=== PATIENT | male | born 1990 | race African-American/Black ===

== ENCOUNTER 2021-06-04 22:30 | Inpatient (IN) ==
[2021-06-04] MEDS ORDERED: ALBUT/IPRATROP 3MG/0.5MG NEB 3 ML VIAL INH STA (22:46)
[2021-06-04] MEDS ORDERED: methylPREDNISolone 125 MG/2 ML VIAL IV STA (22:46)
[2021-06-04] MEDS: MAGNESIUM SULFATE / D5W 1 GM/100 ML BAG IV SCH ×2 (22:51→23:52)
--- NOTE | 2021-06-04 22:59 | Emergency Department Note ---
History of Present Illness General Chief Complaint: Shortness of Breath/Dyspnea Stated Complaint: HAVING TROUBLE BREATHING Time Seen by Provider: 06/04/21 22:39 Source: patient Mode of arrival: ambulatory Limitations: no limitations and clinical acuity (Significantly short of breath) History of Present Illness Provider Complaint: shortness of breath Onset (ago): hour(s) Severity: severe Consistency/Duration: + constant and + progressively worsening Relieved By: + nothing Exacerbated By: + allergies and + other (Smoking) Context: + allergen exposure and + smoke/fume exposure; no recent illness, no occurred during exertion, no choking/aspiration, no medication noncompliance, no recent travel or no trauma/injury Known history of: asthma Associated symptoms: + cough (Productive but with clear sputum); no chest pain, no pain with inspiration, no fever, no diaphoresis or no abdominal pain Treatment prior to arrival: bronchodilator Related Data Home oxygen amount: none Home Medications Medication Instructions Recorded Confirmed Type albuterol sulfate 90 mcg/actuation 2 puff INHALATION Q6H PRN 01/16/20 06/04/21 History aerosol inhaler Allergies Allergy/AdvReac Type Severity Reaction Status Date / Time diphenhydramine AdvReac Difficulty Unverified 06/04/21 23:13 Breathing Past Med/Surg History Medical History Asthma Inguinal hernia Surgical History No pertinent past surgical history Social History Smoking Status: Current every day smoker Tobacco Type: Cigarettes Second Hand Exposure: No; Hx Alcohol Use: Yes Hx Substance Use: Yes Preferred Language: Maltese Manager Utilities Required: No Beliefs That Will Affect Care: None Current Living Situation: Family Other Information That Helps Us Care for You: Yes (Vegan Diet) Feels Safe at Home: Yes Safety Concerns: Feels Safe At This Time Assistive Devices: Oxygen - Continuous Assistive Devices Comment: Upper veneer Physical Exam Vital Signs: Vital Signs - 24 hr 06/04/21 22:37 06/04/21 22:45 06/04/21 22:46 Temperature 36.8 C Temperature Source Temporal Artery Sc an Pulse Rate 94 H 80 Pulse Rate [Apical ] Pulse Rate [Exerci ses] Pulse Rate [Restin g] Pulse Rate from Sp O2 Sensor 81 Pulse Rhythm Regular Respiratory Rate 28 H 12 Respiratory Rate [ Exercises] Respiratory Effort / Characteristics Short of Breath Respiratory Depth Shallow Respiratory Patter n Tachypnea Blood Pressure 148/94 H Blood Pressure Yamini n 112 Pulse Oximetry 88 L 97 Pulse Oximetry [Ex ercises] Pulse Oximetry [Re covery] Pulse Oximetry [Re sting] Oxygen Delivery Me thod Room Air Nasal Cannula Oxygen Flow Rate 2 Sepsis Recent Feve r Within 48 Hours No Sepsis New/Unexpla ined Change in Men carlos Status No Sepsis Action Take n by Nursing No Action Required 06/04/21 22:53 06/04/21 23:00 06/04/21 23:30 Temperature Temperature Source Pulse Rate 70 63 Pulse Rate [Apical ] 66 Pulse Rate [Exerci ses] Pulse Rate [Restin g] Pulse Rate from Sp O2 Sensor 66 64 Pulse Rhythm Respiratory Rate 16 13 19 Respiratory Rate [ Exercises] Respiratory Effort / Characteristics Non-Labored Sponta neous Respiratory Depth Respiratory Patter n Blood Pressure 148/88 H 151/80 H Blood Pressure Yamini n 108 103 Pulse Oximetry 98 99 100 Pulse Oximetry [Ex ercises] Pulse Oximetry [Re covery] Pulse Oximetry [Re sting] Oxygen Delivery Me thod Nasal Cannula Oxygen Flow Rate 4 Sepsis Recent Feve r Within 48 Hours Sepsis New/Unexpla ined Change in Men carlos Status Sepsis Action Take n by Nursing 06/05/21 00:00 06/05/21 00:23 06/05/21 00:30 Temperature Temperature Source Pulse Rate Pulse Rate [Apical ] Pulse Rate [Exerci ses] 118 H Pulse Rate [Restin g] 116 H Pulse Rate from Sp O2 Sensor 71 Pulse Rhythm Respiratory Rate Respiratory Rate [ Exercises] 25 H Respiratory Effort / Characteristics Respiratory Depth Respiratory Patter n Blood Pressure 155/94 H 122/80 Blood Pressure Yamini n 114 94 Pulse Oximetry 95 Pulse Oximetry [Ex ercises] 88 L Pulse Oximetry [Re covery] 89 L Pulse Oximetry [Re sting] 90 Oxygen Delivery Me thod Room Air Oxygen Flow Rate Sepsis Recent Feve r Within 48 Hours Sepsis New/Unexpla ined Change in Men carlos Status Sepsis Action Take n by Nursing 06/05/21 01:00 06/05/21 01:01 06/05/21 01:30 Temperature Temperature Source Pulse Rate 65 Pulse Rate [Apical ] 70 Pulse Rate [Exerci ses] Pulse Rate [Restin g] Pulse Rate from Sp O2 Sensor 70 65 Pulse Rhythm Respiratory Rate 16 16 Respiratory Rate [ Exercises] Respiratory Effort / Characteristics Non-Labored Sponta neous Respiratory Depth Respiratory Patter n Blood Pressure 140/90 134/80 Blood Pressure Yamini n 106 98 Pulse Oximetry 95 95 100 Pulse Oximetry [Ex ercises] Pulse Oximetry [Re covery] Pulse Oximetry [Re sting] Oxygen Delivery Me thod Nasal Cannula Oxygen Flow Rate 2 Sepsis Recent Feve r Within 48 Hours Sepsis New/Unexpla ined Change in Men carlos Status Sepsis Action Take n by Nursing 06/05/21 02:06 Temperature Temperature Source Pulse Rate Pulse Rate [Apical ] Pulse Rate [Exerci ses] Pulse Rate [Restin g] Pulse Rate from Sp O2 Sensor 80 Pulse Rhythm Respiratory Rate Respiratory Rate [ Exercises] Respiratory Effort / Characteristics Respiratory Depth Respiratory Patter n Blood Pressure Blood Pressure Yamini n Pulse Oximetry 91 Pulse Oximetry [Ex ercises] Pulse Oximetry [Re covery] Pulse Oximetry [Re sting] Oxygen Delivery Me thod Oxygen Flow Rate Sepsis Recent Feve r Within 48 Hours Sepsis New/Unexpla ined Change in Men carlos Status Sepsis Action Take n by Nursing Physical Exam: GENERAL: Significant distress, tachypnea noted. EYE EXAM: Normal conjunctiva. PERRL, no anisocoria and EOM's grossly intact w/o pain. NECK: Supple, no nuchal rigidity, no adenopathy, non-tender. No signs of meningismus. LUNGS: Diminished breath sounds throughout with inspiratory and expiratory wheezing, prolonged expiratory phase. HEART: NSR, no MRG. ABDOMEN: Abdomen soft, non-tender, normo-active bowel sounds, no masses, no rebound or guarding. BACK: No CVA TTP. SKIN: No rashes and no bruising. UPPER EXTREMITIES: Upper extremities are grossly normal. LOWER EXTREMITIES: Grossly normal, no edema. Negative Homans' sign bilaterally NEURO EXAM: A&O x3, cranial nerves II-XII grossly intact, normal speech, moves all 4 extremities on command w/o issue. Course Course Cardiac monitoring: An order was placed for continuous cardiac monitoring. The monitor shows a rate of 88 with sinus rhythm. Administered Medications Albuterol (Albuterol 0.5% Neb Soln 2.5 Mg/0.5 Ml Vial) 2.5 mg NEB Q4R ABDULLAHI Stop: 07/05/21 06:59 Last Admin: 06/05/21 15:42 Dose: 2.5 mg Documented by: [id number] Admin: 06/05/21 11:17 Dose: 2.5 mg Documented by: [id number] Admin: 06/05/21 07:17 Dose: 2.5 mg Documented by: [id number] Discontinued Medications Albuterol (Albut/Ipratrop 3mg/0.5mg Neb 3 Ml Vial) 12 ml INH ONE STA Stop: 06/04/21 22:47 Last Admin: 06/04/21 22:53 Dose: 12 ml Documented by: [id number] Albuterol (Albut/Ipratrop 3mg/0.5mg Neb 3 Ml Vial) 12 ml NEB ONE ONE Stop: 06/05/21 00:56 Last Admin: 06/05/21 01:01 Dose: 12 ml Documented by: [id number] Sodium Chloride (Nss 1000ml) 1,000 mls @ 999 mls/hr IV .Q1H1M ABDULLAHI Stop: 06/05/21 00:00 Last Infusion: 06/04/21 23:53 Dose: 0 mls/hr Documented by: [id number] Admin: 06/04/21 22:51 Dose: 999 mls/hr Documented by: [id number] Magnesium Sulfate/Dextrose (Magnesium Sulfate / D5w) 1 gm in 100 mls @ 100 mls/hr IV Q1H [facility] Stop: 06/05/21 00:59 Last Infusion: 06/05/21 03:13 Dose: 0 mls/hr Documented by: [id number] Admin: 06/04/21 23:52 Dose: 100 mls/hr Documented by: [id number] Infusion: 06/04/21 23:52 Dose: 0 mls/hr Documented by: [id number] Admin: 06/04/21 22:51 Dose: 100 mls/hr Documented by: [id number] Sodium Chloride (Nss 1000ml) 1,000 mls @ 999 mls/hr IV .Q1H1M ONE Stop: 06/05/21 01:56 Last Infusion: 06/05/21 03:47 Dose: 0 mls/hr Documented by: [id number] Admin: 06/05/21 01:15 Dose: 999 mls/hr Documented by: [id number] Methylprednisolone 40 mg/ (Syringe) 0.64 mls @ 1.5 mls/min IV Q8H [facility] Stop: 07/05/21 05:59 Last Admin: 06/05/21 06:16 Dose: 1.5 mls/min Documented by: [id number] Ioversol (Optiray 320 125ml) 120 ml IV ONCE ONE Stop: 06/05/21 01:14 Last Admin: 06/05/21 01:13 Dose: 120 ml Documented by: [id number] Methylprednisolone (Methylprednisolone 125 Mg/2 Ml Vial) 125 mg IV NOW STA Stop: 06/04/21 22:47 Last Admin: 06/04/21 22:51 Dose: 125 mg Documented by: [id number] Pneumococcal Polyvalent Vaccine (Pneumococcal Polysaccharides 25 Mcg/0.5 Ml Vial/Syr) 25 mcg IM .ONCE ONE Stop: 06/05/21 08:01 Last Admin: 06/05/21 12:32 Dose: 25 mcg Documented by: [id number] Trimethoprim/Sulfamethoxazole (Sulfamethoxazole/Trimethoprim Ds 800/160mg Tab) 2 tab PO Q6 ABDULLAHI Stop: 06/12/21 05:59 Last Admin: 06/05/21 17:48 Dose: Not Given Documented by: [id number] Admin: 06/05/21 06:16 Dose: 2 tab Documented by: [id number] Medical Decision Making Differential Diagnosis Reactive airway disease, pneumonia, pneumothorax, COPD, CHF, infections, cardiac ischemia, pulmonary embolism, musculoskeletal, gastrointestinal, as well as other pathologies. Medical Records Attestation: I reviewed the patient's medical records. Home Medications Current Medication List: was personally reviewed by me Laboratory Data Attestation: I reviewed the patient's lab results. Result diagrams: 06/05/21 06:56 06/04/21 22:50 Lab Results 06/04/21 06/04/21 06/04/21 Range/Units 22:50 22:50 22:50 WBC 5.39 (4.8-10.8) K/uL RBC 5.18 (4.7-6.1) M/uL Hgb 16.1 (14.0-18.0) g/dL Hct 46.5 (42-52) % MCV 89.8 (80-100) fL MCH 31.1 (25-34) pg MCHC 34.6 (32-36) g/dL RDW Std Deviation 40.6 (36.4-46.3) fL RDW Coeff of Mariann 12.4 (11.5-14.5) % Plt Count 201 (130-400) K/uL MPV 10.0 (7.4-10.4) fL Immature Gran % (Auto) 0.2 % Neut % (Auto) 47.3 % Lymph % (Auto) 31.2 % [place] % (Auto) 11.5 % Eos % (Auto) 9.6 % Baso % (Auto) 0.2 % Neut # (Auto) 2.55 (1.4-6.5) K/uL Lymph # (Auto) 1.68 (1.2-3.4) K/uL [place] # (Auto) 0.62 H (0.11-0.59) K/uL Eos # (Auto) 0.52 H (0-0.5) K/uL Baso # (Auto) 0.01 (0-0.2) K/uL Immature Gran # (Auto) 0.01 (0.00-0.02) K/uL APTT 25.4 (21.0-31.0) Seconds PTT Ratio 1.0 Sodium 138 (136-145) mmol/L Potassium 3.8 (3.5-5.1) mmol/L Chloride 105 (98-107) mmol/L Carbon Dioxide 27 (21-32) mmol/L Anion Gap 6.0 (3-11) BUN 10 (7-18) mg/dl Creatinine 0.97 (0.6-1.4) mg/dl Est Cr Clr Drug Dosing 111.8 ml/min Est GFR ( Amer) 118.4 ml/min Est GFR (Non-Af Amer) 102.2 ml/min BUN/Creatinine Ratio 10.0 (10-20) Glucose 96 (70-99) mg/dl Calcium 9.2 (8.5-10.1) mg/dl Total Bilirubin 0.5 (0.2-1) mg/dl AST 39 H (15-37) U/L ALT 38 (12-78) U/L Alkaline Phosphatase 84 (45-117) U/L Lactate Dehydrogenase (87-241) U/L Troponin I < 0.015 (0-0.045) ng/ml Total Protein 8.4 H (6.4-8.2) gm/dl Albumin 4.2 (3.4-5.0) gm/dl Globulin 4.2 H (2.5-4.0) gm/dl Albumin/Globulin Ratio 1.0 (0.9-2) Lipase 106 (73-393) U/L COVID-19 Eval Order SARS-CoV-2 (PCR) (Negative) 06/04/21 06/05/21 06/05/21 Range/Units 22:50 01:20 01:20 WBC (4.8-10.8) K/uL RBC (4.7-6.1) M/uL Hgb (14.0-18.0) g/dL Hct (42-52) % MCV (80-100) fL MCH (25-34) pg MCHC (32-36) g/dL RDW Std Deviation (36.4-46.3) fL RDW Coeff of Mariann (11.5-14.5) % Plt Count (130-400) K/uL MPV (7.4-10.4) fL Immature Gran % (Auto) % Neut % (Auto) % Lymph % (Auto) % [place] % (Auto) % Eos % (Auto) % Baso % (Auto) % Neut # (Auto) (1.4-6.5) K/uL Lymph # (Auto) (1.2-3.4) K/uL [place] # (Auto) (0.11-0.59) K/uL Eos # (Auto) (0-0.5) K/uL Baso # (Auto) (0-0.2) K/uL Immature Gran # (Auto) (0.00-0.02) K/uL APTT (21.0-31.0) Seconds PTT Ratio Sodium (136-145) mmol/L Potassium (3.5-5.1) mmol/L Chloride (98-107) mmol/L Carbon Dioxide (21-32) mmol/L Anion Gap (3-11) BUN (7-18) mg/dl Creatinine (0.6-1.4) mg/dl Est Cr Clr Drug Dosing ml/min Est GFR ( Amer) ml/min Est GFR (Non-Af Amer) ml/min BUN/Creatinine Ratio (10-20) Glucose (70-99) mg/dl Calcium (8.5-10.1) mg/dl Total Bilirubin (0.2-1) mg/dl AST (15-37) U/L ALT (12-78) U/L Alkaline Phosphatase (45-117) U/L Lactate Dehydrogenase 271 H (87-241) U/L Troponin I (0-0.045) ng/ml Total Protein (6.4-8.2) gm/dl Albumin (3.4-5.0) gm/dl Globulin (2.5-4.0) gm/dl Albumin/Globulin Ratio (0.9-2) Lipase (73-393) U/L COVID-19 Eval Order Covid19 at [facility] SARS-CoV-2 (PCR) NEGATIVE (Negative) Imaging Data Radiologist's Impression: Chest X-Ray 06/04/21 22:46 SINGLE VIEW CHEST CLINICAL HISTORY: Dyspnea. FINDINGS: 2 AP, portable, upright chest radiographs are compared to study dated 01/21/2021. The cardiomediastinal silhouette is unremarkable. The lungs appear hyperinflated, likely due to good inspiratory result. The lungs and pleural spaces are clear. No pneumothorax is seen. The bony thorax is grossly intact. There is S-shaped thoracolumbar scoliosis. IMPRESSION: No active disease in the chest. ACT 112: Negative or not required by law. Electronically signed by: Marco Florentino M.D. 06/04/2021 11:04 PM Chest CTA 06/05/21 01:06 CT angio chest PE protocol CT DOSE: 467.54 mGycm HISTORY: 31 years-old Male with PE. Acute shortness of breath TECHNIQUE: Multiple CTA images of the chest were obtained after the intravenous administration of 120 ml Optiray. Coronal and sagittal MIPS were obtained from the axial data set and were submitted for review. All measurements were obtained according to NASCET criteria. A dose lowering technique was utilized adhering to the principles of ALARA. COMPARISON: Chest radiograph 06/04/2021 FINDINGS: CTA: The segmental and subsegmental pulmonary arterial branches are suboptimally visualized secondary to respiratory motion artifact. No pulmonary emboli identified. Normal thoracic aorta.Heart size is normal. CT CHEST: Unremarkable thyroid. Mildly enlarged bilateral axillary chain lymph nodes measure up to 1.1 cm. There is no pneumothorax, pleural effusion, airspace consolidation or overt pulmonary edema. Mild bilateral bronchial wall thickening. No suspicious pulmonary nodules or masses. Mild subpleural bleb formation of the right lung apex. Central airways are patent. No pneumoperitoneum. Equivocal wall thickening of the distal esophagus. Unremark able soft tissues. Mid thoracic dextroscoliosis. No acute fracture. IMPRESSION: 1. No pulmonary emboli. 2. No pleural effusion or airspace consolidation typical for pneumonia. 3. Mild bilateral bronchial wall thickening suggestive of bronchitis or reactive airway disease. 4. Mild bilateral axillary chain adenopathy, likely reactive. ACT 112: Negative or not required by law. The above report was generated using voice recognition software. It may contain grammatical, syntax or spelling errors. Electronically signed by: Farhat Fraser M.D. 06/05/2021 8:33 AM ECG Data Pacemaker model: Normal sinus rhythm, rate of 66, normal intervals, normal axis, T WI in aVL MDM Narrative Patient did present with significant distress and was noted to be hypoxic in triage. Known history of asthma. The patient does smoke maybe 2 cigarettes/day and does have a history of exacerbations occurring to allergies as well. Patient has had mild productive cough but it has been clear. Patient denies any recent travel or sick contacts. Patient had a bladder completed and was and immediately started on duo nebs steroids and magnesium. Patient did have blood work which showed a normal white count H&H and platelet count. The patient's kidney function is unremarkable. The patient did have improvement in symptoms after his hour-long DuoNeb but the patient was subsequently ambulated about 20 minutes later and the patient desatted again. Patient was placed on 2 L nasal cannula and a another hour-long was ordered. The patient was discussed with the on-call hospitalist Dr. Castro and the patient was admitted to the medicine service. Impression & Plan Respiratory failure with hypoxia, Asthma Critical Care Time Critical Care Time: Yes Total Critical Care Time: 97 Critical Care: I have personally spent 97 minutes of critical care time in direct management of this patient. This includes bedside care, interpretation of diagnostic studies, and testing, discussion with consultants, patient, and family members, and other require inpatient management activities. This 97 minutes is in excess of all separately billable procedures. Discharge Plan Visit Data Chief Complaint: Shortness of Breath/Dyspnea Stated Complaint: HAVING TROUBLE BREATHING ED Provider: Finn Rivera Discharge Problem: Respiratory failure with hypoxia, Asthma Patient Disposition: Admitted As Inpatient Discharge Instructions Interventions: ED Discharge Assessment Last Done: 06/05/21 03:36
[2021-06-04] MEDS ORDERED: SODIUM CHLORIDE 0.9% 1000ML 1,000 ML IV SCH (23:00)
[2021-06-04 23:01] LABS: Basophils # (auto) 0.01 K/uL (0-0.2); Basophils % (auto) 0.2 %; Eosinophils # (auto) 0.52 K/uL (0-0.5); Eosinophils % (auto) 9.6 %; Hematocrit (blood only) 46.5 % (42-52); Hemoglobin 16.1 g/dL (14.0-18.0); Immature Granulocytes # (auto) 0.01 K/uL (0.00-0.02); Immature Granulocytes % (auto) 0.2 %; Lymphocytes # (auto) 1.68 K/uL (1.2-3.4); Lymphocytes % (auto) 31.2 %; Mean Corpuscular Hemoglobin 31.1 pg (25-34); Mean Corpuscular Hgb Conc 34.6 g/dL (32-36); Mean Corpuscular Volume 89.8 fL (80-100); Monocytes # (auto) 0.62 K/uL (0.11-0.59); Monocytes % (auto) 11.5 %; Neutrophils # (auto) 2.55 K/uL (1.4-6.5); Neutrophils % (auto) 47.3 %; Platelet Count 201 K/uL (130-400); RDW Coefficient of Variation 12.4 % (11.5-14.5); RDW Standard Deviation 40.6 fL (36.4-46.3); Red Blood Count 5.18 M/uL (4.7-6.1); White Blood Count 5.39 K/uL (4.8-10.8)
--- NOTE | 2021-06-04 23:05 | XRay Report ---
SINGLE VIEW CHEST CLINICAL HISTORY: Dyspnea. FINDINGS: 2 AP, portable, upright chest radiographs are compared to study dated 01/21/2021. The cardio mediastinal silhouette is unremarkable. The lungs appear hyperinflated, likely due to good inspirator y result. The lungs and pleural spaces are clear. No pneumothorax is seen. The bony thorax is grossly intact. There is S-shaped thoracolumbar scoliosis. IMPRESSION: No active disease in the chest. ACT 112: Negative or not required by law. Electronically signed by: Marco Florentino M.D. 06/04/2021 11:04 PM
[2021-06-04 23:12] LABS: Partial Thromboplastin Time 25.4 Seconds (21.0-31.0)
[2021-06-04 23:18] LABS: Alanine Aminotransferase 38 U/L (12-78); Albumin Level 4.2 gm/dl (3.4-5.0); Aspartate Aminotransferase 39 U/L (15-37); Blood Urea Nitrogen 10 mg/dl (7-18); Calcium 9.2 mg/dl (8.5-10.1); Carbon Dioxide 27 mmol/L (21-32); Chloride 105 mmol/L (98-107); Creatinine Clr Calc Pharmacy 111.8 ml/min; Est GFR (African American) 118.4 ml/min; Est GFR (Non-African American) 102.2 ml/min; Glucose 96 mg/dl (70-99); Lipase 106 U/L (73-393); Potassium 3.8 mmol/L (3.5-5.1); Sodium 138 mmol/L (136-145)
[2021-06-04 23:23] LABS: Alkaline Phosphatase 84 U/L (45-117); Bilirubin,Total 0.5 mg/dl (0.2-1); Globulin 4.2 gm/dl (2.5-4.0); Total Protein 8.4 gm/dl (6.4-8.2); Troponin I < 0.015 ng/ml (0-0.045)
[2021-06-05] MEDS ORDERED: ALBUT/IPRATROP 3MG/0.5MG NEB 3 ML VIAL NEB ONE (00:55)
[2021-06-05] MEDS ORDERED: SODIUM CHLORIDE 0.9% 1000ML 1,000 ML IV ONE (00:56)
[2021-06-05] MEDS ORDERED: OPTIRAY 320 125ml IV ONE (01:13)
--- NOTE | 2021-06-05 03:12 | History & Physical Report ---
Date of Service June 05, 2021 Assessment & Plan (1) Hypoxia: Plan: Farhat is a 31 yo male with a PMHx of HIV (not on HAART) and asthma who presented for new onset shortness of breath. - etiology uncertain: chest imaging showing no evidence of PE, consolidation concerning for PNA. Suspect secondary to acute exacerbation of chronic asthma - no signs of severe exacerbation - peak flow ordered - as for cause of exacerbation, patient URI does not appear to be implicated. May be due to ongoing tobacco smoking. Recommend cessation. Nicotine patch prn while inpatient. - continue albuterol nebs q4h - continue IV solumedrol 40mg q8 - continue supplemental oxygen as needed (2) HIV (human immunodeficiency virus infection): Plan: - history of - CD4 levels and viral load ordered - LDH checked. If elevated, will empirically begin Bactrim for PCP coverage (indicated for hypoxia + elevated LDH in HIV pos patient) - needs to re-establish with infectious disease to re-start HAART --- please set up at discharge (3) Asthma: Plan: - appears to be uncontrolled at baseline, patient using albuterol rescue inhaler twice daily scheduled- likely has at least mild-persistent disease - recommend patient begin controlled medication - low dose ICS (pulmicort) Diet: Regular DVT ppx: Low risk, ambulatory Dispo: Med/Surg Code: Full, I discussed with patient History of Present Illness Primary Care Provider: Ashley Roberta Dougherty is a 31 yo male with a PMHx of HIV (off HAART therapy for past two years) and asthma who presented for evaluation of shortness of breath. First began having difficulty breathing yesterday am upon awakening. He denies any fevers/chills, cough, congestion, sore throat, headaches, body aches, chest pain. He states that his only asthma medication is an albuterol inhaler - he uses it nearly twice everyday. As for his HIV, he states the reason he has not been on HAART is because there is no infectious disease specialist in the [place] area. He was told the closest provider is in [place], [place]. He desires to resume treatment as soon as possible. No eoth use. He is a tobacco smoker - he has made a notable effort to cut back over the past few years. He is now down to ~ 5 cigarettes per day. He does not vape. In the ED, he was afebrile, with a normal with a normal HR and BP. RR normal, O2 sat dropped to 88 on room air. It improved to 95 with 2L of oxygen delivered via NC. His CBC was normal. His electrolytes and kidney function were normal. AST mildly elevated to 39, ALT normal. Trop undetectable. COVID 19 neg. CXR showing no active disease in chest. Chest CTA negative for PE, consolidation (per STAT RAD). He was given an hour long nebulizer treatment, along with 2 grams of magnesium sulfate and methylprednisolone 125mg. Allergies Allergy/AdvReac Type Severity Reaction Status Date / Time diphenhydramine AdvReac Difficulty Unverified 06/04/21 23:13 Breathing Home Medications Medication Instructions Recorded Confirmed Type albuterol sulfate 90 mcg/actuation 2 puff INHALATION Q6H PRN 01/16/20 06/04/21 History aerosol inhaler Past Med/Surg History Medical History Asthma Inguinal hernia Surgical History No pertinent past surgical history Social History Smoking Status: Current every day smoker Tobacco Type: Cigarettes Second Hand Exposure: No; Hx Alcohol Use: Yes Hx Substance Use: Yes Preferred Language: Belarusian Manager Recruitment Required: No Beliefs That Will Affect Care: None Current Living Situation: Family Other Information That Helps Us Care for You: Yes (Vegan Diet) Feels Safe at Home: Yes Safety Concerns: Feels Safe At This Time Assistive Devices: None Assistive Devices Comment: Upper veneer Review of Systems Review of Systems: All systems reviewed & are unremarkable except as noted in HPI & below Physical Exam Constitutional: WD/WN, vitals as above cooperative; no acute distress Eyes: + anicteric sclerae ENMT: external ear and nose normal, oropharynx normal Neck: trachea midline Respiratory: normal respiratory effort; no respiratory distress and no labored breathing Auscultation: + crackles (b/l lung prabhakar) and + wheezes (b/l lung prabhakar) Cardiovascular: RRR, no murmur, no edema Heart Sounds: normal S1 and normal S2 Gastrointestinal (Abdomen): normal bowel sounds, soft, nontender, no hepatosplenomegaly Skin: no rashes, warm and dry Psychiatric: A+Ox3, euthymic affect Results & Data Results & Data ([facility]) Vital Signs (Past 12 Hours) Vital Signs Temp Pulse Pulse Pulse Pulse Resp Resp 06/05/21 02:06 06/05/21 01:30 65 16 06/05/21 01:01 70 16 06/05/21 01:00 06/05/21 00:30 06/05/21 00:23 118 H 116 H 25 H 06/05/21 00:00 06/04/21 23:30 63 19 06/04/21 23:00 70 13 06/04/21 22:53 66 16 06/04/21 22:45 80 12 06/04/21 22:37 36.8 C 94 H 28 H BP Pulse Ox Pulse Ox Pulse Ox Pulse Ox 06/05/21 02:06 91 06/05/21 01:30 134/80 100 06/05/21 01:01 95 06/05/21 01:00 140/90 95 06/05/21 00:30 122/80 95 06/05/21 00:23 88 L 89 L 90 06/05/21 00:00 155/94 H 06/04/21 23:30 151/80 H 100 06/04/21 23:00 148/88 H 99 06/04/21 22:53 98 06/04/21 22:45 97 06/04/21 22:37 148/94 H 88 L Supervising Physician Co-Signing Physician Notes Attending addendum: I have physically seen this patient, have supervised the medical residents activities, and agree with the H&P unless as otherwise noted. Assessment and Plan: Acute respiratory failure with hypoxia/asthma- Chest x-ray negative for acute findings CT angiography with reported artifact, without pulmonary emboli. Follow-up with our radiology confirmatory report in a.m. Concern for PCP with his history of untreated HIV. LDH elevated Start on Bactrim IV Solu-Medrol 40 mg every 8 hours Nasal cannula oxygen titrate to keep pulse ox 94 to 95% Patient was COVID-19 negative in the ED HIV- Patient reports that he has not been on treatment due to inability to find a local infectious disease physician Order CD4 count and viral load with genotyping Remaining orders and notations as noted Resident Activity Tracking Resident Involvement: Resident Care Provided Care Provided: Adult [facility] Medicine (1) Asthma Asthma complication type: unspecified Asthma persistence: unspecified Asthma severity: unspecified severity Qualified Code(s): J45.909 - Unspecified asthma, uncomplicated
[2021-06-05] MEDS ORDERED: POLYETHYLENE (MIRALAX) 17 GM PACK PO PRN (03:56)
[2021-06-05] MEDS ORDERED: ACETAMINOPHEN 325 MG TAB PO PRN (03:56)
[2021-06-05] MEDS ORDERED: ONDANSETRON INJ 2 MG/ML 2 ML VIAL IV PRN (03:56)
[2021-06-05] MEDS ORDERED: methylPREDNISolone 40 MG in SYRINGE 0 ML IV SCH (06:00)
[2021-06-05] MEDS: SULFAMETHOXAZOLE/TRIMETHOPRIM DS 800/160MG TAB PO SCH ×2 (06:16→17:48)
[2021-06-05] MEDS: ALBUTEROL 0.5% NEB SOLN 2.5 MG/0.5 ML VIAL NEB SCH ×5 (07:17→23:29)
[2021-06-05 07:23] LABS: Hematocrit (blood only) 44.4 % (42-52); Hemoglobin 15.3 g/dL (14.0-18.0); Lymphocytes # (auto) 0.54 K/uL (1.2-3.4); Lymphocytes % (auto) 11.2 %; Mean Corpuscular Hemoglobin 30.8 pg (25-34); Mean Corpuscular Hgb Conc 34.5 g/dL (32-36); Mean Corpuscular Volume 89.5 fL (80-100); Mean Platelet Volume 10.4 fL (7.4-10.4); Monocytes # (auto) 0.03 K/uL (0.11-0.59); Monocytes % (auto) 0.6 %; Neutrophils # (auto) 4.27 K/uL (1.4-6.5); Neutrophils % (auto) 88.2 %; Platelet Count 203 K/uL (130-400); RDW Coefficient of Variation 12.4 % (11.5-14.5); RDW Standard Deviation 40.8 fL (36.4-46.3); Red Blood Count 4.96 M/uL (4.7-6.1); White Blood Count 4.84 K/uL (4.8-10.8)
[2021-06-05] MEDS ORDERED: PNEUMOCOCCAL POLYSACCHARIDES 25 MCG/0.5 ML VIAL/SYR IM ONE (08:00)
--- NOTE | 2021-06-05 08:34 | CT Scan Report ---
CT angio chest PE protocol CT DOSE: 467.54 mGycm HISTORY: 31 years-old Male with PE. Acute shortness of breath TECHNIQUE: Multiple CTA images of the chest were obtained after the intravenous administration of 120 ml Optiray. Coronal and sagittal MIPS were obtained from the axial data set and were submitted for review. All measurements were obtained according to NASCET criteria. A dose lowering technique was u tilized adhering to the principles of ALARA. COMPARISON: Chest radiograph 06/04/2021 FINDINGS: CTA: The segmental and subsegmental pulmonary arterial branches are suboptimally visualized secondary to r espiratory motion artifact. No pulmonary emboli identified. Normal thoracic aorta.Heart size is alvin l. CT CHEST: Unremarkable thyroid. Mildly enlarged bilateral axillary chain lymph nodes measure up to 1.1 cm. Ther e is no pneumothorax, pleural effusion, airspace consolidation or overt pulmonary edema. Mild bilater al bronchial wall thickening. No suspicious pulmonary nodules or masses. Mild subpleural bleb formati on of the right lung apex. Central airways are patent. No pneumoperitoneum. Equivocal wall thickening of the distal esophagus. Unremarkable soft tissues. Mi d thoracic dextroscoliosis. No acute fracture. IMPRESSION: 1. No pulmonary emboli. 2. No pleural effusion or airspace consolidation typical for pneumonia. 3. Mild bilateral bronchial wall thickening suggestive of bronchitis or reactive airway disease. 4. Mild bilateral axillary chain adenopathy, likely reactive. ACT 112: Negative or not required by law. The above report was generated using voice recognition software. It may contain grammatical, syntax o r spelling errors. Electronically signed by: Farhat Fraser M.D. 06/05/2021 8:33 AM
--- NOTE | 2021-06-05 09:43 | Electrocardiogram Report ---
Test Reason : Blood Pressure : / mmHG Vent. Rate : 066 BPM Atrial Rate : 066 BPM P-R Int : 142 ms QRS Dur : 110 ms QT Int : 428 ms P-R-T Axes : 054 048 068 degrees QTc Int : 448 ms Normal sinus rhythm Incomplete right bundle branch block Normal ECG When compared with ECG of 02-JUN-2020 10:48, No significant change was found Confirmed by Alber Mejias ([id number]) on 06/05/2021 9:42:30 AM Referred By: REFERRED SELF Confirmed By:Alber Mejias
--- NOTE | 2021-06-05 14:18 | Hospitalist Progress Note ---
Date of Service June 05, 2021 Assessment & Plan (1) Hypoxia: Plan: Farhat is a 31 yo male with a PMHx of HIV (not on HAART) and asthma who was admitted to [facility] on 06/05 for asthma exacerbation. Asthma Exacerbation, resolving Increased mucus production over last several days without other infectious symptoms. Hypoxia requiring 2L NC in the ED. CXR/CTA chest without signs of PNA/infection --> suspect asthma exacerbation due to URI vs allergies. - improving and stable on RA, continue with supplemental O2 PRN - continue with SoluMedrol 40mg IV BID for today, plan to transition to PO taper tomorrow if continues to improve - continue albuterol nebs Q4H - counseled on tobacco use cessation Asthma Suspect moderate-severe persistent given daily use of Albuterol rescue inhaler. - counseled on need for daily inhaler and to use Albuterol as rescue inhaler only - schedule patient for [facility] f/u for easier access to daily inhalers (no insurance) - would recommend either Pulmicort (used in the past with good results) or combination inhaler such as Symbicort HIV Diagnosed ~10 years ago, no HAART for 2 years, unknown CD4 count or viral load. No recent pulmonary/skin/constitutional symptoms. - CD4 levels and viral load ordered - pending - continue with Bactrim prophylactic dosing - plan to continue after discharge - can stop if CD4 >200 and viral load undetectable - needs to establish with ID after discharge to initiate HAART - - will try to get patient in to see Dr. Carcamo at her first available appointment in [place] Diet: Regular DVT ppx: Low risk, ambulatory Dispo: Med/Surg, CM consult placed to assist with Medicaid application Code: Full code (2) HIV (human immunodeficiency virus infection): (3) Asthma: Admission and Anticipated Discharge Date Admission Date: June 05, 2021 Supervising Physician Co-Signing Physician Notes Attending Attestation - Pt seen/examined, chart reviewed, care plan d/w resident Dr Richard Schmitt. I agree w/ the palacio components of his documentation. Pt states that over the last few months he has had NO fevers, chills, nightsweats, weight loss or lack of appetite. No chronic cough. No chronic dyspnea. He does not have health insurance. Does not have ID doc. No HAART in 2+ years. VSS, afebrile during the visit - o2 sats mid-90s in RA gen - NAD, nontoxic mouth - MMM; no thrush lymph - anterior cervical lymph node overlying right SCM muscle heart - RRR, s1 s2 lungs - scant end-exp wheeze b/l anteriorly ; no rales/wheeze posteriorly abd - soft, NT, ND, BS+, no HSM ext - no edema skin - no rash labs reviewed -- lymphopenic on CBC AST scantly elevated LDH modestly elevated CTA chest - bronchial inflammation but no pulmonic infiltrates A/P: 1. asthma w/ exacerbation - agree with steroids, but lower dose to BID, and then can likely change to po prednisone tomorrow. Cont bronchodilators. 2. no evidence of bacterial pneumonia on chest imaging. 3. doubt PCP pneumonia - again no pneumonic infiltrates, and patient already feels better in <24 hours which would NOT be c/w PCP. agree w/ stopping high-dose bactrim. 4. lymphadenopathy right neck, b/l axillae - likely due to HIV itself. No symptoms to suggest MAC, other systemic infection. 5. lymphopenic - likely 2nd to HIV. 6. consult SW tomorrow for MA application 7. establish care with Dr Carcamo, infectious disease (comes to [place] from [place] 1-2x's each month). await CD4 count, HIV viral load, etc. Jamey Reddy MD Subjective Weaned to RA overnight and stable on RA. Has been up and walking around the room without SOB. Denies wheezes as well. Reports that he has had increased mucus production over the last several days but denies recent illness, sick contacts, fever/chills, chest pain, urinary symptoms, GI symptoms, rash. Also denies these symptoms currently. Was diagnosed with HIV almost 10 years ago but has been off of HAART for 2 years. Has taken Pulmicort in the past for Asthma but ran out of the medication in 12/2020 and now usually uses Albuterol 1-2 times per day. Review of Systems Review of Systems: All systems reviewed & are unremarkable except as noted in Subjective Physical Exam Physical Exam: General: A&Ox3. NAD. Cooperative. HEENT: Atraumatic, normocephalic. No thrush. Neck: small mobile anterior cervical lymph node palpable on the right, none on the left Pulm: CTAB A&P. -wheezes, -rales, -rhonchi. Symmetrical chest rise. No increase work of breathing. No respiratory distress. Cardiac: RRR, -mrg. Radial pulses intact and symmetrical. No LE edema. Abdominal: soft, non-tender, non-distended, BS x 4 Skin: warm, dry, no rash Results & Data Results & Data ([facility]) Vital Signs (Past 12 Hours) Vital Signs Temp Pulse Resp BP BP BP Pulse Ox 06/05/21 11:17 69 18 90 06/05/21 09:28 37 C 83 15 149/79 H 90 06/05/21 07:55 06/05/21 07:17 69 16 96 06/05/21 03:45 36.6 C 76 16 137/84 92 06/05/21 03:02 18 143/91 H 91 Pulse Ox 06/05/21 11:17 06/05/21 09:28 06/05/21 07:55 96 06/05/21 07:17 06/05/21 03:45 06/05/21 03:02 Laboratory Results Laboratory Results - last 24 hr 06/04/21 06/04/21 06/04/21 22:50 22:50 22:50 WBC 5.39 RBC 5.18 Hgb 16.1 Hct 46.5 MCV 89.8 MCH 31.1 MCHC 34.6 RDW Std Deviation 40.6 RDW Coeff of Mariann 12.4 Plt Count 201 MPV 10.0 Immature Gran % (Auto) 0.2 Neut % (Auto) 47.3 Lymph % (Auto) 31.2 [place] % (Auto) 11.5 Eos % (Auto) 9.6 Baso % (Auto) 0.2 Neut # (Auto) 2.55 Lymph # (Auto) 1.68 [place] # (Auto) 0.62 H Eos # (Auto) 0.52 H Baso # (Auto) 0.01 Immature Gran # (Auto) 0.01 APTT 25.4 PTT Ratio 1.0 Sodium 138 Potassium 3.8 Chloride 105 Carbon Dioxide 27 Anion Gap 6.0 BUN 10 Creatinine 0.97 Est Cr Clr Drug Dosing 111.8 Est GFR ( Amer) 118.4 Est GFR (Non-Af Amer) 102.2 BUN/Creatinine Ratio 10.0 Glucose 96 Calcium 9.2 Total Bilirubin 0.5 AST 39 H ALT 38 Alkaline Phosphatase 84 Lactate Dehydrogenase Troponin I < 0.015 Total Protein 8.4 H Albumin 4.2 Globulin 4.2 H Albumin/Globulin Ratio 1.0 Lipase 106 Phencyclidine (PCP) Absolute Lymphocytes % CD4 Cells Absolute CD4 Count COVID-19 Eval Order SARS-CoV-2 (PCR) HIV-1 RNA copies/mL HIV-1 RNA logcopies/mL Beta-(1,3)-D-Glucan B-(1,3)-D-Glucan Intrp 06/04/21 06/05/21 06/05/21 22:50 01:20 01:20 WBC RBC Hgb Hct MCV MCH MCHC RDW Std Deviation RDW Coeff of Mariann Plt Count MPV Immature Gran % (Auto) Neut % (Auto) Lymph % (Auto) [place] % (Auto) Eos % (Auto) Baso % (Auto) Neut # (Auto) Lymph # (Auto) [place] # (Auto) Eos # (Auto) Baso # (Auto) Immature Gran # (Auto) APTT PTT Ratio Sodium Potassium Chloride Carbon Dioxide Anion Gap BUN Creatinine Est Cr Clr Drug Dosing Est GFR ( Amer) Est GFR (Non-Af Amer) BUN/Creatinine Ratio Glucose Calcium Total Bilirubin AST ALT Alkaline Phosphatase Lactate Dehydrogenase 271 H Troponin I Total Protein Albumin Globulin Albumin/Globulin Ratio Lipase Phencyclidine (PCP) Absolute Lymphocytes % CD4 Cells Absolute CD4 Count COVID-19 Eval Order Covid19 at [facility] SARS-CoV-2 (PCR) NEGATIVE HIV-1 RNA copies/mL HIV-1 RNA logcopies/mL Beta-(1,3)-D-Glucan B-(1,3)-D-Glucan Intrp 06/05/21 06/05/21 06:56 10:33 WBC 4.84 RBC 4.96 Hgb 15.3 Hct 44.4 MCV 89.5 MCH 30.8 MCHC 34.5 RDW Std Deviation 40.8 RDW Coeff of Mariann 12.4 Plt Count 203 MPV 10.4 Immature Gran % (Auto) 0.0 Neut % (Auto) 88.2 Lymph % (Auto) 11.2 [place] % (Auto) 0.6 Eos % (Auto) 0.0 Baso % (Auto) 0.0 Neut # (Auto) 4.27 Lymph # (Auto) 0.54 L [place] # (Auto) 0.03 L Eos # (Auto) 0.00 Baso # (Auto) 0.00 Immature Gran # (Auto) 0.00 APTT PTT Ratio Sodium Potassium Chloride Carbon Dioxide Anion Gap BUN Creatinine Est Cr Clr Drug Dosing Est GFR ( Amer) Est GFR (Non-Af Amer) BUN/Creatinine Ratio Glucose Calcium Total Bilirubin AST ALT Alkaline Phosphatase Lactate Dehydrogenase Troponin I Total Protein Albumin Globulin Albumin/Globulin Ratio Lipase Phencyclidine (PCP) Pending Absolute Lymphocytes Cancelled % CD4 Cells Cancelled Absolute CD4 Count Cancelled COVID-19 Eval Order SARS-CoV-2 (PCR) HIV-1 RNA copies/mL Pending HIV-1 RNA logcopies/mL Pending Beta-(1,3)-D-Glucan Pending B-(1,3)-D-Glucan Intrp Pending Resident Activity Tracking Resident Involvement: Resident Care Provided Care Provided: Adult Hospital Medicine (1) Asthma Asthma complication type: unspecified Asthma persistence: unspecified Asthma severity: unspecified severity Qualified Code(s): J45.909 - Unspecified asthma, uncomplicated
[2021-06-05] MEDS: methylPREDNISolone 40 MG in SYRINGE 0 ML IV SCH (21:31)
--- NOTE | 2021-06-05 21:39 | Billing Data ---
Date of Service June 05, 2021 Coding Level of Care Code 79476 Subseq Hosp Care Lvl 2
--- NOTE | 2021-06-06 04:58 | Billing Data ---
Date of Service June 06, 2021 Coding Level of Care Code 35319 Initial Inpt Care Lvl 3
[2021-06-06 06:40] LABS: Hematocrit (blood only) 45.3 % (42-52); Hemoglobin 15.6 g/dL (14.0-18.0); Immature Granulocytes # (auto) 0.01 K/uL (0.00-0.02); Immature Granulocytes % (auto) 0.1 %; Lymphocytes # (auto) 0.75 K/uL (1.2-3.4); Lymphocytes % (auto) 8.6 %; Mean Corpuscular Hgb Conc 34.4 g/dL (32-36); Mean Corpuscular Volume 90.1 fL (80-100); Mean Platelet Volume 10.2 fL (7.4-10.4); Monocytes # (auto) 0.45 K/uL (0.11-0.59); Monocytes % (auto) 5.1 %; Neutrophils # (auto) 7.56 K/uL (1.4-6.5); Neutrophils % (auto) 86.2 %; Platelet Count 223 K/uL (130-400); RDW Coefficient of Variation 12.9 % (11.5-14.5); Red Blood Count 5.03 M/uL (4.7-6.1); White Blood Count 8.77 K/uL (4.8-10.8)
[2021-06-06 07:18] LABS: Albumin Level 4.1 gm/dl (3.4-5.0); BUN Creatinine Ratio 8.6 (10-20); Calcium 9.3 mg/dl (8.5-10.1); Creatinine Clr Calc Pharmacy 92.7 ml/min; Est GFR (African American) 94.4 ml/min; Est GFR (Non-African American) 81.4 ml/min; Potassium 4.7 mmol/L (3.5-5.1)
[2021-06-06 07:26] LABS: Bilirubin,Total 0.6 mg/dl (0.2-1); Total Protein 8.1 gm/dl (6.4-8.2)
[2021-06-06] MEDS: ALBUTEROL 0.5% NEB SOLN 2.5 MG/0.5 ML VIAL NEB SCH ×3 (08:07→11:07)
[2021-06-06] MEDS ORDERED: SULFAMETHOXAZOLE/TRIMETHOPRIM DS 800/160MG TAB PO SCH (09:00)
[2021-06-06] MEDS: methylPREDNISolone 40 MG in SYRINGE 0 ML IV SCH (09:27)
--- NOTE | 2021-06-06 11:08 | Discharge Summary ---
Date of Service June 06, 2021 Admission HPI Per Admitting Provider Farhat is a 31 yo male with a PMHx of HIV (off HAART therapy for past two years) and asthma who presented for evaluation of shortness of breath. First began having difficulty breathing yesterday am upon awakening. He denies any fevers/chills, cough, congestion, sore throat, headaches, body aches, chest pain. He states that his only asthma medication is an albuterol inhaler - he uses it nearly twice everyday. As for his HIV, he states the reason he has not been on HAART is because there is no infectious disease specialist in the [place] area. He was told the closest provider is in [place], [place]. He desires to resume treatment as soon as possible. No eoth use. He is a tobacco smoker - he has made a notable effort to cut back over the past few years. He is now down to ~ 5 cigarettes per day. He does not vape. In the ED, he was afebrile, with a normal with a normal HR and BP. RR normal, O2 sat dropped to 88 on room air. It improved to 95 with 2L of oxygen delivered via NC. His CBC was normal. His electrolytes and kidney function were normal. AST mildly elevated to 39, ALT normal. Trop undetectable. COVID 19 neg. CXR showing no active disease in chest. Chest CTA negative for PE, consolidation (per STAT RAD). He was given an hour long nebulizer treatment, along with 2 grams of magnesium sulfate and methylprednisolone 125mg. Admission Exam Per Admitting Provider Constitutional: WD/WN, vitals as above cooperative; no acute distress Eyes: + anicteric sclerae ENMT: external ear and nose normal, oropharynx normal Neck: trachea midline Respiratory: normal respiratory effort; no respiratory distress and no labored breathing Auscultation: + crackles (b/l lung prabhakar) and + wheezes (b/l lung prabhakar) Cardiovascular: RRR, no murmur, no edema Heart Sounds: normal S1 and normal S2 Gastrointestinal (Abdomen): normal bowel sounds, soft, nontender, no hepatosplenomegaly Skin: no rashes, warm and dry Psychiatric: A+Ox3, euthymic affect Principal Diagnosis Asthma Exacerbation Discharge Exam General: A&Ox3. NAD. Cooperative. HEENT: Atraumatic, normocephalic. No thrush. Neck: small mobile anterior cervical lymph node palpable on the right, none on the left Pulm: Faint bilateral end-expiratory wheezes in lung bases but god air movement bilaterally. -rales, -rhonchi. Symmetrical chest rise. No increase work of breathing. No respiratory distress. Cardiac: RRR, -mrg. Radial pulses intact and symmetrical. No LE edema. Abdominal: soft, non-tender, non-distended, BS x 4 Skin: warm, dry, no rash Discharge Data Allergies Allergy/AdvReac Type Severity Reaction Status Date / Time diphenhydramine AdvReac Difficulty Unverified 06/04/21 23:13 Breathing Consultations 06/05/21 00:55 ED Decision to Admit Stat Ordered Studies 06/05/21 01:06 CT angio chest PE protocol Urgent Hospital Course (1) Hypoxia: Farhat is a 31 yo male with a PMHx of HIV (not on HAART) and asthma who was admitted to [facility] from 06/05 - 06/06 for asthma exacerbation. Asthma Exacerbation, resolved Increased mucus production over last several days without other infectious symptoms. Hypoxia requiring 2L NC in the ED. CXR/CTA chest without signs of PNA/infection --> suspect asthma exacerbation due to URI vs allergies. - improving and stable on RA, with good air movement on exam and minimal wheezes - initially given SoluMedrol 125mg IV x1 and 40mg IV BID, transition to Prednisone 4-day taper starting on 06/07 - received Albuterol nebs Q4H while hospitalized, continue with home PRN Albuterol inhaler after discharge - counseled on tobacco use cessation Asthma Suspect moderate-severe persistent given daily use of Albuterol rescue inhaler. - counseled on need for daily inhaler and to use Albuterol as rescue inhaler only - schedule patient for [facility] f/u for easier access to daily inhalers (no insurance) - patient will need to call to schedule - would recommend either Pulmicort (used in the past with good results) or combination inhaler such as Symbicort HIV Diagnosed ~10 years ago, no HAART for 2 years, unknown CD4 count or viral load. No recent pulmonary/skin/constitutional symptoms. - CD4 levels and viral load ordered - pending - started on Bactrim prophylactic dosing - continue after discharge - can stop if CD4 >200 and viral load undetectable - needs to establish with ID after discharge to initiate HAART - - will try to get patient in to see Dr. Carcamo at her first available appointment in [place] - alternatively patient will need to establish with [facility] ID (2) HIV (human immunodeficiency virus infection): (3) Asthma: Total Time Total Time Spent Total Time Spent (In Minutes): <30 minutes Discharge Plan Discharge Items Patient Disposition: Home - Self-Care Reason For Visit: HYPOXIA Discharge Diagnosis: Asthma Exacerbation Activity: Per Instructions section Non-emergency contact: Primary Care Provider and Specialist Call non-emergency contact if: you have any medication questions, your symptoms worsen and you have a fever Follow-up/Referrals: Ashley Granados CRNP [Primary Care Provider] - 06/08/21 10:30 am (please schedule patient for f/u in 2-3 days) Bella Carcamo DO [Physician] - 06/21/21 11:00 am (Appointment with will be at [address] [place] [address],[place] [id number]) Diet: Regular Addtl Attending Provider Instructions: You were admitted to [facility] from 06/05 - 06/06 for an asthma exacerbation that was likely caused due to either an viral respiratory infection (common cold) or seasonal allergies. You were started on supplemental oxygen, given regular Albuterol nebulizer treatments, and started on IV steroids. You did well with these interventions, your exacerbation resolved, and you were weaned off of supplemental oxygen. You will be discharged on 06/06 in improved, stable condition. You should take the following new medications after discharge: 1. Prednisone taper (4 pills on day 1, 3 pills on day 2, 2 pills on day 3, 1 pill on day 4) 2. Bactrim, one pill per day. You will need to take this for prophylaxis against respiratory infections that can occur in patients with HIV. You can stop taking this depending on what your CD4 count and viral load is. Please follow up with your PCP about these blood tests You will need to start taking a daily asthma inhaler, in addition to your Albuterol inhaler (which should only be used as a rescue inhaler when you have wheezing or trouble breathing). Please call the [facility] clinic at [phone] to schedule an appointment; this clinic sees patients without medical insurance and can help you with obtaining a daily inhaler. We will try to get you an appointment with Dr. Carcamo (Infectious Disease) for management of your HIV. Alternatively, you will need to establish with an Infectious Disease specialist at [facility]. You will need to start anti-viral medications for HIV. Pending Studies at Discharge: Yes Studies:: HIV viral load, CD4 count, [id number] Stand-Alone Forms: [facility], Smoking Cessation Medications and DC Order Prescriptions: New sulfamethoxazole-trimethoprim [Bactrim DS] 800-160 mg tablet 1 tab PO DAILY Qty: 30 RF: 2 prednisone 10 mg tablet See Rx Instructions .ROUTE .COMPLEX Qty: 10 RF: 0 Continued albuterol sulfate 90 mcg/actuation Hfa Aerosol Inhaler 2 puff INHALATION Q6H PRN (Reason: Shortness Of Breath Or Wheezing) RF: 0 Discharge Orders: Discharge Order (Routine); Ordered 06/06/21 Ordered By: Richard Schmitt Admission Data Admit Date/Time: 06/05/21 02:46 Attending Provider: Vaughn Matthew Admit Provider: Ruthann Landaverde Primary Care Provider: Ashley Granados Other Providers: Spencer Schroeder ; Jamey Reddy Other Interventions: Discharge Summary Assessment (RN) Last Done: 06/06/21 12:09 Supervising Physician Co-Signing Physician Notes I personally examined the patient and verified all palacio points of history and exam, discussed case, and agree with decision making with Dr Schmitt. Feeling better, breathing better, feeling up to going home. Discussed follow-up and treatment for HIV. Vitals noted, in general he is awake and alert pleasant no distress. HEENT normocephalic atraumatic mucous membranes moist. Lungs are clear to auscultation bilaterally no rales rhonchi or wheezes with good effort to my exam ( I believe did hear faint end expiratory wheezes a few hours prior to my listening) Asthma exacerbationstable for home. Prednisone taper. Has inhaler. Outpatient follow-up. HIVdiscussed need for resuming treatment, discussed the overall success of treatment anymore, he expressed a strong desire to get back on line with treatment. We will follow up with infectious disease either locally from [place] who comes [facility], or remotely via the [facility] infectious disease team. Resident Activity Tracking Resident Involvement: Resident Care Provided Care Provided: [facility] Medicine
--- NOTE | 2021-06-06 19:41 | Billing Data ---
Date of Service June 06, 2021 Coding Level of Care Code D/C DAY MANAGEMENT <30 MINS
[2021-06-10 01:36] LABS: LSP % Cells Analyzed CD4 17 % (30-61); LSP Absolute Ct CD4 127 cells/uL (490-1740); LSP Lymphocytes Absolute 741 cells/uL (850-3900)
--- NOTE | 2021-06-15 11:35 | Coding Query ---
To promote full compliance with coding requirements relating to patient care, provider participation is requested in all cases of printing roller handler uncertainty. Please assist us with the question(s) below: Coding Question(s): The diagnosis below was documented in the ER Visit Notes and the H&P then subsequently fell off all further documentation. Please indicate if it is still a possible diagnosis or ruled out. Physician's Response(s): Acute Respiratory Failure ( x ) Diagnosed and POA ( ) Diagnosed and not POA ( ) Ruled out ( ) Other (please specify) Thanks, YAJAIRA CaicedoD
[2021-06-15 21:16] LABS: Fungitell (1-3)-B-D-Glucan <31 pg/mL; HIV 1 RNA PCR Copies/ML 889 Copies/mL; HIV-1 RNA Log Copies/mL 2.95 Log cps/mL
[2021-06-16 09:18] LABS: PCP Verification Serum NOT DETECTED
== END 2021-06-06 14:23 | disposition home or self-care (01) | DRG 202 ==
LOC: ED 22:30 → 3N 06-05 02:46 → SUATTDRO 06-05 02:46 → 3N 06-05 03:36
DX: Z88.6 Allergy status to analgesic agent; J45.51 Severe persistent asthma with (acute) exacerbation; J96.01 Acute respiratory failure with hypoxia; F17.210 Nicotine dependence, cigarettes, uncomplicated; J00 Acute nasopharyngitis [common cold]; J30.2 Other seasonal allergic rhinitis; Z21 Asymptomatic human immunodeficiency virus [HIV] infection status

== ENCOUNTER 2022-04-08 14:24 | Inpatient (IN) ==
[2022-04-08] MEDS ORDERED: ALBUT/IPRATROP 3MG/0.5MG NEB 3 ML VIAL NEB ONE ×2 (14:49→15:48)
[2022-04-08] MEDS ORDERED: MAGNESIUM SULFATE 1GM / D5W BAG IV STA (14:50)
--- NOTE | 2022-04-08 15:02 | Emergency Department Note ---
Impression & Plan Respiratory failure, Asthma exacerbation, Hypoxia ED Provider Note NAME: FARHAT ORELLANA AGE: 31 SEX: M : 1990 ARRIVES VIA: Walk-In INFORMANT: Patient ED PROVIDER(S): Vaughn Butterfield DO CHIEF COMPLAINT: shortness of breath HPI: Patient is a 31-year-old male with a past medical history of asthma and HIV that presents the ER for shortness of breath which started earlier today. He denies any cough or runny nose. No loss of taste or smell. No belly pain, nausea, vomiting, or diarrhea. He admits to chest pain but is only able to shake his head yes and no to give history due to his respiratory distress. History is limited secondary to respiratory distress. This does feel like his typical asthma. Denies any recent trips, travel, coughing up blood,, history of cancer here recent clotting disorders ROS: Review of systems is limited secondary to respiratory distress PAST MEDICAL HISTORY:See Below PAST SURGICAL HISTORY:See Below FAMILY HISTORY:See Below SOCIAL HISTORY:See Below HOME MEDICATIONS:See Below ALLERGIES:See Below VITALS:See Below PHYSICAL EXAMINATION: GENERAL: Sitting up in bed, alert, severe distress unable to talk, on nonrebreather EYE EXAM: normal conjunctiva. PERRL and EOM's grossly intact. OROPHARYNX: mucous membranes are dry LUNGS: Using accessory muscles with poor air movement in the bases and wheezing on exhalation HEART: no murmurs, S1 normal and S2 normal ABDOMEN: abdomen soft, non-tender, normo-active bowel sounds, no masses, no rebound or guarding. UPPER EXTREMITIES: upper extremities are grossly normal. LOWER EXTREMITIES: No pitting edema. Calves are equal bilateral NEURO EXAM: Normal sensorium, cranial nerves II-XII grossly intact, normal speech, no gross weakness of arms, no gross weakness of legs. MEDICAL DECISION MAKING: Patient is a 31-year-old male with a past medical history of asthma that presents the ER for shortness of breath. Symptoms started suddenly this morning gradually got worse. Upon arrival he is found to be hypoxic at 85 to 87% on room air. He was placed on nonrebreather. On my exam his breathing was labored and he was unable to talk. History was limited. IVs were established and blood work was obtained. He was immediately placed on BiPAP. He was given hour-long neb treatment as well as steroids and 2 g of magnesium. He felt significantly better. Following the hour-long he started to be able to talk and his respiratory rate calm down. VBG shows that he is acidotic and he was slightly retaining. Because of this he was monitored extremely closely for concern for continued deterioration possible intubation. He was given another hour-long neb treatment. He is continually improved throughout his stay in the ER. Case was discussed with Dr. Zahida Mcgarry. She requested an ABG and I will evaluate. Patient was updated, bedside. Clinically he is moving more air and is able to talk now. Will be admitted to the hospital for further work-up. COVID was negative. Triage Nursing notes reviewed. Limited review of prior medical records performed Vital Signs: reviewed and remarkable for hypoxia Differential diagnosis: Differential diagnoses includes but is not limited to pneumonia, bronchitis, COPD/Asthma exacerbation, pneumothorax, pulmonary embolism, congestive heart fa ilure, acute coronary syndrome ER treatment provided: See below Diagnostics interpreted by me: ECG: Sinus rhythm rate of 62 Normal axis No PVCs Poor baseline QTC 424 Cardiac Monitoring: An i35hefo was placed for continuous cardiac monitoring. The monitor shows a rate of 60 with sinus rhythm. Laboratory studies: As stated above and show below. Imaging studies: Portable AP upright 1 view of the chest was unremarkable Consultation(s): Discussed with Zahida Mcgarry for further evaluation Procedures: none Critical Care: I have personally spent 40 minutes of critical care time in the direct management of this patient. This includes bedside care, interpretation of diagnostic studies, and testing, discussion with consultants, patient, and family members, and other required patient management activities. This 40 minutes is in excess of all separately billable procedures. Past Med/Surg History Medical History Asthma Current smoker Inguinal hernia Respiratory failure with hypoxia Surgical History No pertinent past surgical history Social History Smoking Status: Current every day smoker Tobacco Type: Cigarettes Second Hand Exposure: No; Hx Alcohol Use: Yes Hx Substance Use: Yes Preferred Language: Croatian Communication Ability: Effective Gang Sawyer Required: No Beliefs That Will Affect Care: None Current Living Situation: Family Feels Safe at Home: Yes Assistive Devices: None Allergies Allergies Allergy/AdvReac Type Severity Reaction Status Date / Time diphenhydramine AdvReac Severe Difficulty Verified 04/08/22 15:49 Breathing Home Meds Home Medications Medication Instructions Recorded Confirmed dolutegravir 50 mg-lamivudine 300 1 tab PO DAILY 03/25/22 04/08/22 mg tablet (Dovato) Results & Data (ED) Vital Signs Vital Signs - 24 hr 04/08/22 14:24 04/08/22 14:49 04/08/22 14:50 Temperature 36.4 C L Temperature Source Temporal Artery Scan Pulse Rate 88 68 64 Pulse Rate from SpO2 Sensor 67 61 Respiratory Rate 45 H 14 16 Respiratory Effort / Characteristics Accessory Muscle Use Gasping/Agonal Labored Retracting Short of Breath Tripoding Respiratory Depth Retractive Respiratory Pattern Tachypnea Blood Pressure 138/96 158/106 H 162/109 H Blood Pressure Mean 110 123 126 Pulse Oximetry 87 L 99 99 Oxygen Delivery Method Room Air Fraction of Inspired Oxygen Sepsis Recent Fever Within 48 Hours No Sepsis New/Unexplained Change in Mental Status No Sepsis Action Taken by Nursing No Action Required Pulse Oximetry Post Tiitration 04/08/22 14:54 04/08/22 14:55 04/08/22 14:57 Temperature Temperature Source Pulse Rate 68 Pulse Rate from SpO2 Sensor Respiratory Rate 22 24 Respiratory Effort / Characteristics Spontaneous Grunting Labored Spontaneous Labored Respiratory Depth Normal Respiratory Pattern Blood Pressure Blood Pressure Mean Pulse Oximetry 99 99 Oxygen Delivery Method BiPAP BiPAP Fraction of Inspired Oxygen 40 Sepsis Recent Fever Within 48 Hours Sepsis New/Unexplained Change in Mental Status Sepsis Action Taken by Nursing Pulse Oximetry Post Tiitration 100 04/08/22 15:00 04/08/22 15:10 04/08/22 15:15 Temperature Temperature Source Pulse Rate 68 62 Pulse Rate from SpO2 Sensor 67 65 Respiratory Rate 16 17 Respiratory Effort / Characteristics Respiratory Depth Respiratory Pattern Blood Pressure 138/96 160/107 H Blood Pressure Mean 110 124 Pulse Oximetry 99 100 100 Oxygen Delivery Method BiPAP Fraction of Inspired Oxygen Sepsis Recent Fever Within 48 Hours Sepsis New/Unexplained Change in Mental Status Sepsis Action Taken by Nursing Pulse Oximetry Post Tiitration 04/08/22 15:20 04/08/22 15:30 04/08/22 15:40 Temperature Temperature Source Pulse Rate 52 L 55 L 64 Pulse Rate from SpO2 Sensor 55 L 61 Respiratory Rate 18 18 25 H Respiratory Effort / Characteristics Respiratory Depth Respiratory Pattern Blood Pressure 152/86 H 140/86 Blood Pressure Mean 108 104 Pulse Oximetry 99 100 Oxygen Delivery Method Fraction of Inspired Oxygen Sepsis Recent Fever Within 48 Hours Sepsis New/Unexplained Change in Mental Status Sepsis Action Taken by Nursing Pulse Oximetry Post Tiitration 04/08/22 15:41 04/08/22 15:57 Temperature Temperature Source Pulse Rate 58 L Pulse Rate from SpO2 Sensor 57 L Respiratory Rate 21 24 Respiratory Effort / Characteristics Non-Labored Spontaneous Respiratory Depth Respiratory Pattern Blood Pressure 116/91 Blood Pressure Mean 99 Pulse Oximetry 100 99 Oxygen Delivery Method BiPAP Fraction of Inspired Oxygen 30 Sepsis Recent Fever Within 48 Hours Sepsis New/Unexplained Change in Mental Status Sepsis Action Taken by Nursing Pulse Oximetry Post Tiitration Laboratory Data Result diagrams: 04/08/22 14:50 04/08/22 14:50 Lab Results 04/08/22 04/08/22 04/08/22 Range/Units 14:50 14:50 14:54 WBC 5.69 (4.8-10.8) K/uL RBC 4.97 (4.7-6.1) M/uL Hgb 15.6 (14.0-18.0) g/dL Hct 47.5 (42-52) % MCV 95.6 (80-100) fL MCH 31.4 (25-34) pg MCHC 32.8 (32-36) g/dL RDW Std Deviation 45.1 (36.4-46.3) fL RDW Coeff of Mariann 13.0 (11.5-14.5) % Plt Count 274 (130-400) K/uL MPV 9.6 (7.4-10.4) fL Immature Gran % (Auto) 0.5 % Neut % (Auto) 39.0 % Lymph % (Auto) 42.9 % [place] % (Auto) 9.7 % Eos % (Auto) 7.9 % Baso % (Auto) 0.0 % Neut # (Auto) 2.22 (1.4-6.5) K/uL Lymph # (Auto) 2.44 (1.2-3.4) K/uL [place] # (Auto) 0.55 (0.11-0.59) K/uL Eos # (Auto) 0.45 (0-0.5) K/uL Baso # (Auto) 0.00 (0-0.2) K/uL Immature Gran # (Auto) 0.03 H (0.00-0.02) K/uL VBG pH 7.24 L (7.36-7.41) VBG pCO2 68 H (38-50) mmHg VBG pO2 85 mmHg VBG HCO3 29 mmol/L VBG O2 Saturation 95.4 % VBG Base Excess -0.8 mEq/L Barometric Pressure 730.2 mm/Hg Sodium 141 (136-145) mmol/L Potassium 4.3 (3.5-5.1) mmol/L Chloride 107 (98-107) mmol/L Carbon Dioxide 27 (21-32) mmol/L Anion Gap 7 (3-11) BUN 12 (6-23) mg/dl Creatinine 1.09 (0.6-1.4) mg/dl Est Cr Clr Drug Dosing Not Reportable Est GFR ( Amer) 102.8 ml/min Est GFR (Non-Af Amer) 88.7 ml/min BUN/Creatinine Ratio 11.0 (10-20) Glucose 104 H (70-99(Fasting)) mg/dl Calcium 9.7 (8.5-10.1) mg/dl Total Bilirubin 0.5 (0.2-1.0) mg/dl AST 27 (13-39) U/L ALT 23 (7-52) U/L Alkaline Phosphatase 81 (34-104) U/L Troponin I High Sens 3.1 (0-20) pg/ml Total Protein 7.9 (6.0-8.3) gm/dl Albumin 5.0 (3.4-5.0) gm/dl Globulin 2.9 (2.5-4.0) gm/dl Albumin/Globulin Ratio 1.7 (0.9-2) Lipase 10 L (11-82) U/L SARS-CoV-2, RNA, NAAT (NEGATIVE) 04/08/22 Range/Units 15:58 WBC (4.8-10.8) K/uL RBC (4.7-6.1) M/uL Hgb (14.0-18.0) g/dL Hct (42-52) % MCV (80-100) fL MCH (25-34) pg MCHC (32-36) g/dL RDW Std Deviation (36.4-46.3) fL RDW Coeff of Mariann (11.5-14.5) % Plt Count (130-400) K/uL MPV (7.4-10.4) fL Immature Gran % (Auto) % Neut % (Auto) % Lymph % (Auto) % [place] % (Auto) % Eos % (Auto) % Baso % (Auto) % Neut # (Auto) (1.4-6.5) K/uL Lymph # (Auto) (1.2-3.4) K/uL [place] # (Auto) (0.11-0.59) K/uL Eos # (Auto) (0-0.5) K/uL Baso # (Auto) (0-0.2) K/uL Immature Gran # (Auto) (0.00-0.02) K/uL VBG pH (7.36-7.41) VBG pCO2 (38-50) mmHg VBG pO2 mmHg VBG HCO3 mmol/L VBG O2 Saturation % VBG Base Excess mEq/L Barometric Pressure mm/Hg Sodium (136-145) mmol/L Potassium (3.5-5.1) mmol/L Chloride (98-107) mmol/L Carbon Dioxide (21-32) mmol/L Anion Gap (3-11) BUN (6-23) mg/dl Creatinine (0.6-1.4) mg/dl Est Cr Clr Drug Dosing Est GFR ( Amer) ml/min Est GFR (Non-Af Amer) ml/min BUN/Creatinine Ratio (10-20) Glucose (70-99(Fasting)) mg/dl Calcium (8.5-10.1) mg/dl Total Bilirubin (0.2-1.0) mg/dl AST (13-39) U/L ALT (7-52) U/L Alkaline Phosphatase (34-104) U/L Troponin I High Sens (0-20) pg/ml Total Protein (6.0-8.3) gm/dl Albumin (3.4-5.0) gm/dl Globulin (2.5-4.0) gm/dl Albumin/Globulin Ratio (0.9-2) Lipase (11-82) U/L SARS-CoV-2, RNA, NAAT NEGATIVE (NEGATIVE) Administered Medications Discontinued Medications Albuterol (Albut/Ipratrop 3mg/0.5mg Neb 3 Ml Vial) 12 ml NEB ONE ONE; Protocol Stop: 04/08/22 14:50 Last Admin: 04/08/22 14:55 Dose: 12 ml Documented by: [id number] Albuterol (Albut/Ipratrop 3mg/0.5mg Neb 3 Ml Vial) 12 ml NEB ONE ONE; Protocol Stop: 04/08/22 15:49 Last Admin: 04/08/22 15:54 Dose: 12 ml Documented by: [id number] Magnesium Sulfate/Dextrose (Magnesium Sulfate 1gm / D5w Bag) 2 gm IV NOW STA Stop: 04/08/22 14:51 Last Admin: 04/08/22 15:15 Dose: 2 gm Documented by: [id number] Methylprednisolone (Methylprednisolone 40 Mg/Ml Vial) 40 mg IV NOW STA Stop: 04/08/22 14:50 Last Admin: 04/08/22 15:13 Dose: 40 mg Documented by: [id number] Ondansetron HCl (Ondansetron Inj 2 Mg/Ml 2 Ml Vial) 4 mg IV NOW STA Stop: 04/08/22 15:07 Last Admin: 04/08/22 15:11 Dose: 4 mg Documented by: [id number] Imaging Data Radiologist's Impression: Chest X-Ray 04/08/22 14:49 XR chest 1V portable HISTORY: 31 years-old Male Chest Pain acute atypical chest pain COMPARISON: Chest radiograph 04/02/2022 TECHNIQUE: AP view of the chest FINDINGS: The cardiomediastinal and hilar silhouettes are within normal limits. Medial right upper lung opacities favor to represent summation density. No pneumothorax, pleural effusion, airspace consolidation or overt pulmonary edema. Healed chronic fracture of the posterior right seventh rib. IMPRESSION: No acute process. ACT 112: Negative or not required by law. The above report was generated using voice recognition software. It may contain grammatical, syntax or spelling errors. Electronically signed by: Farhat Fraser M.D. 04/08/2022 3:03 PM Discharge Plan Visit Data Chief Complaint: Shortness of Breath/Dyspnea Stated Complaint: SOB,ASTHMA ED Provider: Vaughn Butterfield Discharge Problem: Respiratory failure, Asthma exacerbation, Hypoxia Forms Stand Alone Forms: [facility] Prescriptions Prescriptions: No Action Dovato 50-300 mg tablet 1 tab PO DAILY RF: 0 Referrals Referrals: Ashley Granados CRNP [Primary Care Provider] - Discharge Problem: Respiratory failure Qualifiers: Chronicity: acute Respiratory failure complication: hypoxia and hypercapnia Qualified Code(s): J96.01 - Acute respiratory failure with hypoxia Asthma exacerbation Qualifiers: Asthma severity: moderate Asthma persistence: unspecified Qualified Code(s): J45.901 - Unspecified asthma with (acute) exacerbation
[2022-04-08] MEDS ORDERED: ONDANSETRON INJ 2 MG/ML 2 ML VIAL IV STA (15:06)
--- NOTE | 2022-04-08 15:06 | XRay Report ---
XR chest 1V portable HISTORY: 31 years-old Male Chest Pain acute atypical chest pain COMPARISON: Chest radiograph 04/02/2022 TECHNIQUE: AP view of the chest FINDINGS: The cardiomediastinal and hilar silhouettes are within normal limits. Medial right upper lung opaciti es favor to represent summation density. No pneumothorax, pleural effusion, airspace consolidation or overt pulmonary edema. Healed chronic fracture of the posterior right seventh rib. IMPRESSION: No acute process. ACT 112: Negative or not required by law. The above report was generated using voice recognition software. It may contain grammatical, syntax o r spelling errors. Electronically signed by: Farhat Fraser M.D. 04/08/2022 3:03 PM
[2022-04-08 15:34] LABS: Eosinophils # (auto) 0.45 K/uL (0-0.5); Eosinophils % (auto) 7.9 %; Hematocrit (blood only) 47.5 % (42-52); Hemoglobin 15.6 g/dL (14.0-18.0); Immature Granulocytes # (auto) 0.03 K/uL (0.00-0.02); Immature Granulocytes % (auto) 0.5 %; Lymphocytes # (auto) 2.44 K/uL (1.2-3.4); Lymphocytes % (auto) 42.9 %; Mean Corpuscular Hemoglobin 31.4 pg (25-34); Mean Corpuscular Hgb Conc 32.8 g/dL (32-36); Mean Corpuscular Volume 95.6 fL (80-100); Mean Platelet Volume 9.6 fL (7.4-10.4); Monocytes # (auto) 0.55 K/uL (0.11-0.59); Monocytes % (auto) 9.7 %; Neutrophils # (auto) 2.22 K/uL (1.4-6.5); Platelet Count 274 K/uL (130-400); RDW Standard Deviation 45.1 fL (36.4-46.3); Red Blood Count 4.97 M/uL (4.7-6.1); White Blood Count 5.69 K/uL (4.8-10.8)
[2022-04-08 15:34] LABS: Base Excess VBG -0.8 mEq/L; Oxygen Saturation VBG 95.4 %; pH VBG 7.24 (7.36-7.41)
[2022-04-08 16:00] LABS: Alanine Aminotransferase 23 U/L (7-52); Albumin Globulin Ratio 1.7 (0.9-2); Alkaline Phosphatase 81 U/L (34-104); Anion Gap 7 (3-11); Aspartate Aminotransferase 27 U/L (13-39); Bilirubin,Total 0.5 mg/dl (0.2-1.0); Blood Urea Nitrogen 12 mg/dl (6-23); Calcium 9.7 mg/dl (8.5-10.1); Carbon Dioxide 27 mmol/L (21-32); Chloride 107 mmol/L (98-107); Est GFR (African American) 102.8 ml/min; Est GFR (Non-African American) 88.7 ml/min; Globulin 2.9 gm/dl (2.5-4.0); Glucose 104 mg/dl (70-99(Fasting)); Lipase 10 U/L (11-82); Potassium 4.3 mmol/L (3.5-5.1); Sodium 141 mmol/L (136-145); Total Protein 7.9 gm/dl (6.0-8.3)
[2022-04-08 16:05] LABS: Troponin I High Sensitivity 3.1 pg/ml (0-20)
--- NOTE | 2022-04-08 16:58 | History & Physical Report ---
Date of Service April 08, 2022 Assessment & Plan (1) Acute respiratory failure: Plan: Acute respiratory failure with hypoxia and hypercarbia secondary to acute asthma exacerbation Presented with severe respiratory distress with use of accessory muscles, tachypnea, inability to speak in full sentences. Chest x-ray negative. VBG abnormal at 7.24/ and he was hypoxic to 85% on room air He was placed on BiPAP for 1 hour and given a 1 hour neb treatment as well as IV Solu-Medrol 40 mg x 1 in the ER with significant improvement. -Admit to PCU -Repeat ABG now and wean off BiPAP as tolerated to nasal cannula or room air -Continue IV Solu-Medrol 40 Mg IV twice daily -Consult pulmonology given previous hospitalizations for asthma exacerbations and ER visits -He is not on any maintenance inhalers for his asthma-defer to pulmonology to start inhaled corticosteroids versus JAMES/ICS -Given the allergies play a role, could add on antihistamine however he has an apparent reaction to diphenhydramine in the past. Could consider Singulair as well-defer to pulmonology. No eosinophilia -Recommend pulmonology follow-up after discharge (2) Asthma exacerbation: Plan: As above (3) HIV (human immunodeficiency virus infection): Plan: Latest HIV quant was undetectable as per patient report and he now follows with infectious disease regularly Continue home Dovato No recent CD4 count in our lab system, but he reports that he does not need to be on Bactrim or any prophylaxis (4) Current smoker: Plan: He recently quit smoking about 2 weeks ago after smoking since age 14 Congratulated him for his efforts and encouraged continued commitment He declines nicotine patch Plan: DVT prophylaxis-SCDs, Lovenox SQ Disposition-admit to PCU, expect a least a 2 midnight stay History of Present Illness Chief Complaint: SOB Primary Care Provider: Ashley Granados This pt is a 31 yo male with a h/o HIV, asthma, who presents to the ER with increasing SOB. He was seen in the ER on 04/02 with similar complaints and was treated at that time with a 1 hour neb treatment and sent home with prednisone burst. He returns today and was so tachypneic and in distress he couldn't speak but could shake his head yes and no as per ER MD report. He was found to be hyp oxic at POx 85%, hypercapnic with abnl VBG and was placed on BiPAP, given nebs, and IV steroids. He was much improved after these interventions. He was still on BiPAP when I saw him but he was breathing very comfortably and was able to speak to me in complete sentences. He reports that he had been doing better after his last ER visit but then today started early this morning feeling like he cannot catch his breath. He went to work and while he was there things got worse and he was extremely short of breath and had to come to the ER. He is not on any maintenance inhalers for his asthma despite previous hospitalizations and ER visits. He does not follow with pulmonology. He only uses albuterol as needed. He reports that seasonal allergies play a role in his asthma exacerbations. He reports that his most recent HIV quant was undetectable and he follows with infectious disease. Labs were otherwise unremarkable, CBC without eosinophilia. COVID-19 was negative. His COVID/Flu/RSV were all negative on 04/02. CXR negative. No fevers or chills, no abd pains, no chest pains. No headaches or lightheadedness, no sore throat or runny nose. No joint pains or leg swelling, no rashes. No blood in the stool or urine. No urinary symptoms. No diarrhea or constipation. He will be admitted for acute asthma exacerbation and acute respiratory failure with hypoxia and hypercapnia. Allergies Allergy/AdvReac Type Severity Reaction Status Date / Time diphenhydramine AdvReac Severe Difficulty Verified 04/08/22 15:49 Breathing Home Medications Medication Instructions Recorded Confirmed Type dolutegravir 50 mg-lamivudine 300 1 tab PO DAILY 03/25/22 04/08/22 History mg tablet (Dovato) Past Med/Surg History Medical History Asthma Current smoker Inguinal hernia Respiratory failure with hypoxia Surgical History No pertinent past surgical history Family History Other Family history non-contributory Social History Smoking Status: Former smoker Tobacco Type: Cigarettes Age Started Using Tobacco: 14; Age Quit Using Tobacco: 31; packs per day: 1; Smoking End Date: 03/24/22; Second Hand Exposure: No; Hx Alcohol Use: Yes Alcohol Intake Frequency: 2-4 x/Month Hx Substance Use: Yes Prescribed Medications: Marijuana Preferred Language: Moroccan Communication Ability: Effective Heavy Duty Mechanic Required: No Beliefs That Will Affect Care: None Current Living Situation: Family Feels Safe at Home: Yes Assistive Devices: None Review of Systems Review of Systems: All systems reviewed & are unremarkable except as noted in HPI & below Physical Exam Constitutional: WD/WN, vitals as above Eyes: PERRL, conjunctivae normal, anicteric sclerae ENMT: external ear and nose normal, oropharynx normal Neck: trachea midline, no thyromegaly Respiratory: normal respiratory effort (on BiPAP); does not use accessory muscles, no cough and not tachypneic Auscultation: lungs clear to auscultation bilaterally and + diminished lung sounds (throughout); no crackles, no rhonchi and no wheezes Cardiovascular: RRR, no murmur, no edema Chest (Breasts): Chest: normal inspection of chest Gastrointestinal (Abdomen): normal bowel sounds, soft, nontender, no hepatosplenomegaly Musculoskeletal: Extremities: extremities normal to inspection; no cyanosis and no clubbing Skin: no rashes, warm and dry Neurologic: moves all extremities and awake; no focal motor deficits Psychiatric: A+Ox3, euthymic affect Lymphatic: no lymphedema Results & Data Results & Data ([facility]) Vital Signs (Past 12 Hours) Vital Signs Temp Pulse Resp BP Pulse Ox 04/08/22 15:57 24 99 04/08/22 15:41 58 L 21 116/91 100 04/08/22 15:40 64 25 H 100 04/08/22 15:30 55 L 18 140/86 04/08/22 15:20 52 L 18 152/86 H 99 04/08/22 15:15 100 04/08/22 15:10 62 17 160/107 H 100 04/08/22 15:00 68 16 138/96 99 04/08/22 14:57 24 99 04/08/22 14:55 68 22 99 04/08/22 14:50 64 16 162/109 H 99 04/08/22 14:49 68 14 158/106 H 99 04/08/22 14:24 36.4 C L 88 45 H 138/96 87 L Laboratory Results 04/08/22 04/08/22 04/08/22 Range/Units 15:58 14:54 14:50 WBC (4.8-10.8) K/uL RBC (4.7-6.1) M/uL Hgb (14.0-18.0) g/dL Hct (42-52) % MCV (80-100) fL MCH (25-34) pg MCHC (32-36) g/dL RDW Std Deviation (36.4-46.3) fL RDW Coeff of Mariann (11.5-14.5) % Plt Count (130-400) K/uL MPV (7.4-10.4) fL Immature Gran % (Auto) % Neut % (Auto) % Lymph % (Auto) % Martin % (Auto) % Eos % (Auto) % Baso % (Auto) % Neut # (Auto) (1.4-6.5) K/uL Lymph # (Auto) (1.2-3.4) K/uL Martin # (Auto) (0.11-0.59) K/uL Eos # (Auto) (0-0.5) K/uL Baso # (Auto) (0-0.2) K/uL Immature Gran # (Auto) (0.00-0.02) K/uL VBG pH 7.24 L (7.36-7.41) VBG pCO2 68 H (38-50) mmHg VBG pO2 85 mmHg VBG HCO3 29 mmol/L VBG O2 Saturation 95.4 % VBG Base Excess -0.8 mEq/L Barometric Pressure 730.2 mm/Hg Sodium 141 (136-145) mmol/L Potassium 4.3 (3.5-5.1) mmol/L Chloride 107 (98-107) mmol/L Carbon Dioxide 27 (21-32) mmol/L Anion Gap 7 (3-11) BUN 12 (6-23) mg/dl Creatinine 1.09 (0.6-1.4) mg/dl Est Cr Clr Drug Dosing Not Reportable Est GFR ( Amer) 102.8 ml/min Est GFR (Non-Af Amer) 88.7 ml/min BUN/Creatinine Ratio 11.0 (10-20) Glucose 104 H (70-99(Fasting)) mg/dl Calcium 9.7 (8.5-10.1) mg/dl Total Bilirubin 0.5 (0.2-1.0) mg/dl AST 27 (13-39) U/L ALT 23 (7-52) U/L Alkaline Phosphatase 81 (34-104) U/L Troponin I High Sens 3.1 (0-20) pg/ml Total Protein 7.9 (6.0-8.3) gm/dl Albumin 5.0 (3.4-5.0) gm/dl Globulin 2.9 (2.5-4.0) gm/dl Albumin/Globulin Ratio 1.7 (0.9-2) Lipase 10 L (11-82) U/L SARS-CoV-2, RNA, NAAT NEGATIVE (NEGATIVE) 04/08/22 Range/Units 14:50 WBC 5.69 (4.8-10.8) K/uL RBC 4.97 (4.7-6.1) M/uL Hgb 15.6 (14.0-18.0) g/dL Hct 47.5 (42-52) % MCV 95.6 (80-100) fL MCH 31.4 (25-34) pg MCHC 32.8 (32-36) g/dL RDW Std Deviation 45.1 (36.4-46.3) fL RDW Coeff of Mariann 13.0 (11.5-14.5) % Plt Count 274 (130-400) K/uL MPV 9.6 (7.4-10.4) fL Immature Gran % (Auto) 0.5 % Neut % (Auto) 39.0 % Lymph % (Auto) 42.9 % Martin % (Auto) 9.7 % Eos % (Auto) 7.9 % Baso % (Auto) 0.0 % Neut # (Auto) 2.22 (1.4-6.5) K/uL Lymph # (Auto) 2.44 (1.2-3.4) K/uL Martin # (Auto) 0.55 (0.11-0.59) K/uL Eos # (Auto) 0.45 (0-0.5) K/uL Baso # (Auto) 0.00 (0-0.2) K/uL Immature Gran # (Auto) 0.03 H (0.00-0.02) K/uL VBG pH (7.36-7.41) VBG pCO2 (38-50) mmHg VBG pO2 mmHg VBG HCO3 mmol/L VBG O2 Saturation % VBG Base Excess mEq/L Barometric Pressure mm/Hg Sodium (136-145) mmol/L Potassium (3.5-5.1) mmol/L Chloride (98-107) mmol/L Carbon Dioxide (21-32) mmol/L Anion Gap (3-11) BUN (6-23) mg/dl Creatinine (0.6-1.4) mg/dl Est Cr Clr Drug Dosing Est GFR ( Amer) ml/min Est GFR (Non-Af Amer) ml/min BUN/Creatinine Ratio (10-20) Glucose (70-99(Fasting)) mg/dl Calcium (8.5-10.1) mg/dl Total Bilirubin (0.2-1.0) mg/dl AST (13-39) U/L ALT (7-52) U/L Alkaline Phosphatase (34-104) U/L Troponin I High Sens (0-20) pg/ml Total Protein (6.0-8.3) gm/dl Albumin (3.4-5.0) gm/dl Globulin (2.5-4.0) gm/dl Albumin/Globulin Ratio (0.9-2) Lipase (11-82) U/L SARS-CoV-2, RNA, NAAT (NEGATIVE) Diagnostic Findings Chest X-Ray 04/08/22 14:49 XR chest 1V portable HISTORY: 31 years-old Male Chest Pain acute atypical chest pain COMPARISON: Chest radiograph 04/02/2022 TECHNIQUE: AP view of the chest FINDINGS: The cardiomediastinal and hilar silhouettes are within normal limits. Medial right upper lung opacities favor to represent summation density. No pneumothorax, pleural effusion, airspace consolidation or overt pulmonary edema. Healed chronic fracture of the posterior right seventh rib. IMPRESSION: No acute process. ACT 112: Negative or not required by law. The above report was generated using voice recognition software. It may contain grammatical, syntax or spelling errors. Electronically signed by: Farhat Fraser M.D. 04/08/2022 3:03 PM ECG Additional Comments: ECG with NSR, normal rate, iRBBB, anterior infarct but appears unchanged from previous Code Status & VTE Plan Code Status FULL CODE VTE Prophylaxis Plan VTE Prophylaxis will be ordered: Yes PG Care Time/CCT Total # of Minutes Spent Total Time Spent with Patient: Total time spent is greater than 50% in coordination of care (as documented) at patient's floor/unit and/or counseling patient: Coding Level of Care Code 49478 Initial Inpt Care Lvl 3 Diagnoses Asthma exacerbation J45.41 Asthma persistence: persistent Asthma severity: moderate HIV (human immunodeficiency virus infection) B20 Current smoker F17.200 Acute respiratory failure J96.00 (1) Asthma exacerbation Asthma persistence: persistent Asthma severity: moderate Qualified Code(s): J45.41 - Moderate persistent asthma with (acute) exacerbation
[2022-04-08] MEDS ORDERED: ACETAMINOPHEN 325 MG TAB PO PRN (18:15)
[2022-04-08] MEDS ORDERED: ONDANSETRON INJ 2 MG/ML 2 ML VIAL IV PRN (18:15)
[2022-04-08] MEDS ORDERED: POLYETHYLENE (MIRALAX) 17 GM PACK PO PRN (18:15)
[2022-04-08] MEDS ORDERED: Patient's HEIGHT &/or WEIGHT Needed SCH (18:30)
[2022-04-08] MEDS: ENOXAPARIN INJ 40 MG/0.4 ML SYR SQ SCH (20:13)
[2022-04-08] MEDS: methylPREDNISolone 40 MG in SYRINGE 0 ML IV SCH (20:13)
[2022-04-08] MEDS: ALBUT/IPRATROP 3MG/0.5MG NEB 3 ML VIAL NEB SCH (20:31)
[2022-04-09] MEDS: ALBUT/IPRATROP 3MG/0.5MG NEB 3 ML VIAL NEB SCH ×3 (07:25→14:05)
--- NOTE | 2022-04-09 08:41 | Pulmonary Consultation ---
Date of Consultation April 09, 2022 Assessment & Plan (1) Acute respiratory failure with hypoxia and hypercapnia: (2) Asthma exacerbation: Asthma persistence: unspecified Asthma severity: moderate Qualified Code(s): J45.901 - Unspecified asthma with (acute) exacerbation (3) SOB (shortness of breath): (4) HIV (human immunodeficiency virus infection): (5) Current smoker: CT chest 04/09/22 personally reviewed: Right upper lobe apical cyst Minimal Mosaicism appreciated Accessory lobe in the right lower region No mediastinal lymphadenopathy Chest x-ray 04/08/2022 personally reviewed: Portable film, hyperinflated, bilateral costophrenic and cardiophrenic angles are clean, no clear lung infiltrate appreciated. --Acute hypoxic hypercapnic respiratory failure Likely secondary to asthma exacerbation Patient is not on any standing inhalers at home Covid-19 PCR negative After eosinophil count 450 on 04/08/2022, it has been as high as 520 on 06/04/2021 -- Active smoker Advised to quit -- Uses edible marijuana --History of HIV As per the patient completed his HIV virus level was undetectable and he follows up with infectious disease Plan: Add Breo 200-25 MCG 1 puff on a daily basis, rinse the mouth after each use Starting tomorrow start prednisone 40 mg for 3 days followed by 20 mg for 3 days and then stop Patient does not give me any signs of allergies. Singulair 10 mg nightly can also be thought of on top of Breo at the time of discharge Patient will benefit from an outpatient follow-up with industrial chemistry teacher Advised to quit smoking No further recommendation from pulmonary perspective. Will sign off. Please call directly with any questions Please note the above document was generated using voice recognition software. It may contain grammatical, syntax or spelling errors.Any formal questions or concerns about the content, text or information contained within the body of this dictation should be directly addressed to the provider for clarification. History of Present Illness Attending Physician: Nnamdi Grimes MD History of Present Illness 31-year-old male presented to hospital with complaints of shortness of breath Past medical history: Childhood history of asthma only on albuterol, history of HIV noncompliant with medication He was in the ER a week prior as well with shortness of breath and he was discharged home with prednisone In the ED patient was found to be hypoxic 85% and also hypercapnic on the ABG. He was given Solu-Medrol and put on BiPAP initially after which he improved. He was started on Solu-Medrol 40 mg twice daily At the time of examination today he says he is feeling much better Denies any cough No chest pain, no headache, no dizziness No hemoptysis. No fever or chills Chest tightness significantly proved. Shortness of breath is also improved Social history: Smokes 1 or 2 cigarettes daily basis Used to smoke up to quarter pack to the age of 28. Started smoking at the age of 16. No illicit drug use Does use edible marijuana No birds or poultry nearby. Allergies Allergy/AdvReac Type Severity Reaction Status Date / Time diphenhydramine AdvReac Severe Difficulty Verified 04/08/22 15:49 Breathing Home Medications Medication Instructions Recorded Confirmed Type dolutegravir 50 mg-lamivudine 300 1 tab PO DAILY 03/25/22 04/08/22 History mg tablet (Dovato) Patient History Medical History Asthma Current smoker Inguinal hernia Respiratory failure with hypoxia Surgical History No pertinent past surgical history Family History Other Family history non-contributory Social History Smoking Status: Former smoker Tobacco Type: Cigarettes Age Started Using Tobacco: 14; Age Quit Using Tobacco: 31; packs per day: 1; Smoking End Date: 03/24/22; Second Hand Exposure: No; Hx Alcohol Use: Yes Alcohol type: hard liquor Alcohol Intake Frequency: 2-4 x/Month Hx Substance Use: Yes Prescribed Medications: Marijuana Last Used Substance: Days (ago) Preferred Language: Ukrainian Communication Ability: Effective Leader Assembler Required: No Beliefs That Will Affect Care: None Current Living Situation: Family Other Information That Helps Us Care for You: No Feels Safe at Home: Yes Safety Concerns: Feels Safe At This Time Assistive Devices: None Review of Systems Review of Systems: All systems reviewed & are unremarkable except as noted in HPI & below Physical Exam Physical Exam: Constitutional: No acute distress HEENT: EOMI, PERRLA Respiratory system: Decreased air entry bilaterally, no wheeze, no rhonchi, no crackles CVS: S1-S2 positive, no murmurs or gallops Abdomen: Soft, nontender, nondistended, positive bowel sounds x4 Extremities: +2 pulses bilaterally radialis/ dorsalis pedis, no cyanosis, no edema Neuro: Awake alert oriented x3 Psych: Normal mood and affect G/U: No Richards Skin: no rashes, warm and dry Lymphatic: no cervical or axillary lymphadenopathy Results & Data Results & Data ([facility]) Vital Signs (Past 12 Hours) Vital Signs Temp Pulse Pulse Resp BP Pulse Ox 04/09/22 07:26 66 16 94 04/09/22 07:00 36.9 C 78 20 128/86 91 04/09/22 03:55 36.6 C 75 18 124/74 95 04/08/22 23:22 36.7 C 65 18 128/65 97 Laboratory Results 04/08/22 14:50 04/08/22 14:50 PG Care Time/CCT Total # of Minutes Spent Total Time Spent with Patient: Total time spent is greater than 50% in coordination of care (as documented) at patient's floor/unit and/or counseling patient: Coding Level of Care Code 64776 Initial Inpt Care Lvl 3 Diagnoses Acute respiratory failure with hypoxia and hypercapnia J96.01; J96.02 Asthma exacerbation J45.901 Asthma persistence: unspecified Asthma severity: moderate SOB (shortness of breath) R06.02 HIV (human immunodeficiency virus infection) B20 Current smoker F17.200
--- NOTE | 2022-04-09 08:48 | Electrocardiogram Report ---
Test Reason : Blood Pressure : / mmHG Vent. Rate : 065 BPM Atrial Rate : 065 BPM P-R Int : 108 ms QRS Dur : 094 ms QT Int : 414 ms P-R-T Axes : 083 075 076 degrees QTc Int : 430 ms Poor data quality, interpretation may be adversely affected Sinus rhythm with sinus arrhythmia with short IA Incomplete right bundle branch block Anterior infarct , age undetermined vs anterior lead misplacement Abnormal ECG When compared with ECG of 02-APR-2022 16:21, Anterior infarct is now Present Confirmed by Israel Balderas ([id number]) on 04/09/2022 8:48:17 AM Referred By: REFERRED SELF Confirmed By:Israel Balderas
[2022-04-09] MEDS: methylPREDNISolone 40 MG in SYRINGE 0 ML IV SCH (09:18)
--- NOTE | 2022-04-09 12:01 | CT Scan Report ---
CT SCAN OF THE CHEST WITHOUT IV CONTRAST CLINICAL HISTORY: Atypical chest pain. COMPARISON STUDY: Chest x-ray dated 04/08/2022. Chest CT dated 06/05/2021. TECHNIQUE: CT scan of the thorax was performed from the thoracic inlet to the upper abdomen. Images are reviewed in the axial, sagittal, and coronal planes. IV contrast was not administered for this ex amination as per the referring clinician. A dose lowering technique was utilized adhering to the trey patriciaples of LU. CT DOSE: 232.59 mGy.cm FINDINGS: Thyroid: Imaged portions of the thyroid gland are normal in size and attenuation. Thoracic aorta: The thoracic aorta is normal in caliber and demonstrates standard 3-vessel arch anato my. Heart: The heart is normal in size and without pericardial effusion. Lungs and pleural spaces: There is no airspace consolidation or pleural effusion. Mild bronchiectasis is noted, greatest in the lower lobes. There is diffuse peribronchial thickening. The trachea and ce ntral airways are clear. Mediastinum: There is no mediastinal lymphadenopathy. Lorelei: Not well assessed without IV contrast. Axillae: There is no axillary lymphadenopathy. Upper abdomen: Partially visualized upper abdominal viscera is within normal limits. Skeletal structures: No lytic or blastic bony lesions are seen. There is thoracic scoliosis. IMPRESSION: 1. There is no airspace consolidation or pleural effusion. 2. Mild bronchiectasis is observed and there is diffuse peribronchial thickening. ACT 112: Negative or not required by law. Electronically signed by: Macro Florentino M.D. 04/09/2022 11:59 AM
[2022-04-09] MEDS: FLUTICASONE/VILANTEROL 200/25MCG 14 PUFFS/INHALER INH SCH (13:27)
--- NOTE | 2022-04-09 16:08 | Hospitalist Progress Note ---
Date of Service April 09, 2022 Assessment & Plan (1) Acute respiratory failure: Plan: Significant improvement, will transfer the patient to the [facility] surgery, possible discharge tomorrow, stop IV Solu-Medrol, start on prednisone, follow-up with pulmonology on outpatient basis advised to stop Acute respiratory failure with hypoxia and hypercarbia secondary to acute asthma exacerbation Presented with severe respiratory distress with use of accessory muscles, tachypnea, inability to speak in full sentences. Chest x-ray negative. VBG abnormal at 7.24/68 and he was hypoxic to 85% on room air He was placed on BiPAP for 1 hour and given a 1 hour neb treatment as well as IV Solu-Medrol 40 mg x 1 in the ER with significant improvement. Add Breo 200-25 MCG 1 puff on a daily basis, rinse the mouth after each use Starting tomorrow start prednisone 40 mg for 3 days followed by 20 mg for 3 days and then stop Patient does not give me any signs of allergies. Singulair 10 mg nightly can also be thought of on top of Breo at the time of discharge Patient will benefit from an outpatient follow-up with relations manager Transfer out of PCU (2) Asthma exacerbation: Plan: As above (3) HIV (human immunodeficiency virus infection): Plan: Latest HIV quant was undetectable as per patient report and he now follows with infectious disease regularly Continue home Dovato No recent CD4 count in our lab system, but he reports that he does not need to be on Bactrim or any prophylaxis (4) Current smoker: Plan: He recently quit smoking about 2 weeks ago after smoking since age 14 Congratulated him for his efforts and encouraged continued commitment He declines nicotine patch Plan: DVT prophylaxis-SCDs, Lovenox SQ Admission and Anticipated Discharge Date Admission Date: April 08, 2022 Subjective Feels significantly better, IV Solu-Medrol, started on prednisone tomorrow possible discharge to Review of Systems Review of Systems: General: No malaise no weakness Neck: No tenderness no pain HEENT: No eye discharge no ear discharge Chest: No chest pain, no palpitation GI: Not distended, no nausea no vomiting Extremities: No edema no tenderness Neurology: No headache no weakness Psychiatric: No depression no anxiety Physical Exam Physical Exam: Constitutional: No acute distress HEENT: EOMI, PERRLA Respiratory system: Decreased air entry bilaterally, no wheeze, no rhonchi, no crackles CVS: S1-S2 positive, no murmurs or gallops Abdomen: Soft, nontender, nondistended, positive bowel sounds x4 Extremities: +2 pulses bilaterally radialis/ dorsalis pedis, no cyanosis, no edema Neuro: Awake alert oriented x3 Psych: Normal mood and affect G/U: No Richards Constitutional: WD/WN, vitals as above Eyes: PERRL, conjunctivae normal, anicteric sclerae ENMT: external ear and nose normal, oropharynx normal Neck: trachea midline, no thyromegaly Respiratory: normal respiratory effort (on BiPAP); does not use accessory muscles, no cough and not tachypneic Auscultation: lungs clear to auscultation bilaterally and + diminished lung sounds (throughout); no crackles, no rhonchi and no wheezes Cardiovascular: RRR, no murmur, no edema Chest (Breasts): Chest: normal inspection of chest Gastrointestinal (Abdomen): normal bowel sounds, soft, nontender, no hepatosplenomegaly Musculoskeletal: Extremities: extremities normal to inspection; no cyanosis and no clubbing Skin: no rashes, warm and dry Neurologic: moves all extremities and awake; no focal motor deficits Psychiatric: A+Ox3, euthymic affect Lymphatic: no cervical or axillary lymphadenopathy no lymphedema Results & Data Results & Data ([facility]) Vital Signs (Past 12 Hours) Vital Signs Temp Pulse Pulse Resp BP Pulse Ox 04/09/22 15:20 36.8 C 103 H 18 133/66 94 04/09/22 14:06 83 20 97 04/09/22 11:48 36.8 C 70 18 140/76 96 04/09/22 10:21 62 18 97 04/09/22 07:26 66 16 94 04/09/22 07:00 36.9 C 78 20 128/86 91 PG Care Time/CCT Total # of Minutes Spent Total Time Spent with Patient: Total time spent is greater than 50% in coordination of care (as documented) at patient's floor/unit and/or counseling patient: Coding Level of Care Code 25382 Subseq Hosp Care Lvl 2 Diagnoses Acute respiratory failure J96.00 Asthma exacerbation J45.41 Asthma persistence: persistent Asthma severity: moderate HIV (human immunodeficiency virus infection) B20 Current smoker F17.200 (1) Asthma exacerbation Asthma persistence: persistent Asthma severity: moderate Qualified Code(s): J45.41 - Moderate persistent asthma with (acute) exacerbation
[2022-04-09] MEDS ORDERED: ALBUT/IPRATROP 3MG/0.5MG NEB 3 ML VIAL NEB PRN (16:09)
[2022-04-09] MEDS: ENOXAPARIN INJ 40 MG/0.4 ML SYR SQ SCH (22:37)
[2022-04-10] MEDS ORDERED: predniSONE 20 MG TAB PO SCH (06:30)
[2022-04-10] MEDS: FLUTICASONE/VILANTEROL 200/25MCG 14 PUFFS/INHALER INH SCH (08:52)
[2022-04-10 11:15] LABS: iSTAT Hematocrit 47 % (42-52); iSTAT Potassium 3.9 mmol/L (3.3-5.0); iSTAT Sodium 134 mmol/L (135-144)
[2022-04-10 11:16] LABS: iSTAT Arterial Blood Gas pCO2 38 mmHg (35-46); iSTAT Arterial Blood Gas pH 7.45 (7.35-7.45); iSTAT Arterial Blood Gas pO2 141 mmHg (80-95); iSTAT Carbon Dioxide 27 mmol/L (24-31)
[2022-04-10 11:17] LABS: iSTAT Arterial Blood Gas HCO3 26 meg/L (19-24)
--- NOTE | 2022-04-10 13:22 | Discharge Summary ---
Date of Service April 10, 2022 Admission HPI Per Admitting Provider This pt is a 31 yo male with a h/o HIV, asthma, who presents to the ER with increasing SOB. He was seen in the ER on 04/02 with similar complaints and was treated at that time with a 1 hour neb treatment and sent home with prednisone burst. He returns today and was so tachypneic and in distress he couldn't speak but could shake his head yes and no as per ER MD report. He was found to be hypoxic at POx 85%, hypercapnic with abnl VBG and was placed on BiPAP, given nebs, and IV steroids. He was much improved after these interventions. He was still on BiPAP when I saw him but he was breathing very comfortably and was able to speak to me in complete sentences. He reports that he had been doing better after his last ER visit but then today started early this morning feeling like he cannot catch his breath. He went to work and while he was there things got worse and he was extremely short of breath and had to come to the ER. He is not on any maintenance inhalers for his asthma despite previous hospitalizations and ER visits. He does not follow with pulmonology. He only uses albuterol as needed. He reports that seasonal allergies play a role in his asthma exacerbations. He reports that his most recent HIV quant was undetectable and he follows with infectious disease. Labs were otherwise unremarkable, CBC without eosinophilia. COVID-19 was negative. His COVID/Flu/RSV were all negative on 04/02. CXR negative. No fevers or chills, no abd pains, no chest pains. No headaches or lightheadedness, no sore throat or runny nose. No joint pains or leg swelling, no rashes. No blood in the stool or urine. No urinary symptoms. No diarrhea or constipation. He will be admitted for acute asthma exacerbation and acute respiratory failure with hypoxia and hypercapnia. Principal Diagnosis COPD exacerbation Discharge Exam Constitutional: No acute distress HEENT: EOMI, PERRLA Respiratory system: Decreased air entry bilaterally, no wheeze, no rhonchi, no crackles CVS: S1-S2 positive, no murmurs or gallops Abdomen: Soft, nontender, nondistended, positive bowel sounds x4 Extremities: +2 pulses bilaterally radialis/ dorsalis pedis, no cyanosis, no edema Neuro: Awake alert oriented x3 Psych: Normal mood and affect G/U: No Richards Constitutional WD/WN, vitals as above Eyes PERRL, conjunctivae normal, anicteric sclerae ENMT external ear and nose normal, oropharynx normal Neck trachea midline, no thyromegaly Respiratory normal respiratory effort (on BiPAP); does not use accessory muscles, no cough and not tachypneic Auscultation: lungs clear to auscultation bilaterally and + diminished lung sounds (throughout); no crackles, no rhonchi and no wheezes Cardiovascular RRR, no murmur, no edema Chest (Breasts) Chest: normal inspection of chest Gastrointestinal (Abdomen) normal bowel sounds, soft, nontender, no hepatosplenomegaly Musculoskeletal Extremities: extremities normal to inspection; no cyanosis and no clubbing Skin no rashes, warm and dry Neurologic moves all extremities and awake; no focal motor deficits Psychiatric A+Ox3, euthymic affect Lymphatic no cervical or axillary lymphadenopathy no lymphedema Discharge Data Allergies Allergy/AdvReac Type Severity Reaction Status Date / Time diphenhydramine AdvReac Severe Difficulty Verified 04/08/22 15:49 Breathing Consultations 04/08/22 18:15 Consult Pulmonology Routine Ordered Studies 04/09/22 08:46 CT chest diagnostic wo con Routine Hospital Course (1) Acute respiratory failure: Acute respiratory failure with hypoxia and hypercarbia secondary to acute asthma exacerbation Presented with severe respiratory distress with use of accessory muscles, tachypnea, inability to speak in full sentences. Chest x-ray negative. VBG abnormal at 7.24/68 and he was hypoxic to 85% on room air He was placed on BiPAP , neb, Solu-Medrol I examined the patient next day he was not hypoxic, lungs were clear to auscultation no wheezing on exam no tachypnea, patient started on tapering dose of prednisone, patient did fine, patient discharged on 04/10, patient advised to follow-up with pulmonary office, patient was advised to stop smoking (2) Asthma exacerbation: As above (3) HIV (human immunodeficiency virus infection): Latest HIV quant was undetectable as per patient report and he now follows with infectious disease regularly Continue home Dovato No recent CD4 count in our lab system, but he reports that he does not need to be on Bactrim or any prophylaxis (4) Current smoker: He recently quit smoking about 2 weeks ago after smoking since age 14 Congratulated him for his efforts and encouraged continued commitment He declines nicotine patch DVT prophylaxis-SCDs, Lovenox SQ Total Time Total Time Spent Total Time Spent (In Minutes): 45 mins Discharge Plan Discharge Items Patient Disposition: Home - Self-Care Reason For Visit: SOB,ASTHMA Discharge Diagnosis: COPD /Asthma Exacrebation Activity: Resume your previous activity Lifting: Gradually increase as tolerated Bathing: No limitations Sexual Activity: When tolerated Driving/Machine Use: No limitations Non-emergency contact: Primary Care Provider Call non-emergency contact if: you have any medication questions Follow-up/Referrals: Darion Gomez MD [Physician] - Aslhey Granados CRNP [Primary Care Provider] - 04/19/22 11:10 am Diet: Heart Healthy Addtl Attending Provider Instructions: Please stop smoking Pending Studies at Discharge: No Stand-Alone Forms: My [employer], Smoking Cessation Medications and DC Order Prescriptions: New albuterol sulfate [Ventolin HFA] 90 mcg/actuation HFA aerosol inhaler 1 inh inhalation Q4H PRN (Reason: shortness of breath or wheezing) Qty: 6.7 RF: 0 prednisone 20 mg tablet 20 mg PO DAILY Qty: 12 RF: 0 fluticasone furoate-vilanterol 200-25 mcg/dose blister with device 1 inh inhalation DAILY Qty: 60 RF: 0 Continued Dovato 50-300 mg tablet 1 tab PO DAILY RF: 0 Discharge Orders: Discharge Order (Routine); Ordered 04/10/22 Ordered By: Nnamdi Madrid/Other Patient Handouts: Quit Smoke Tools Help Kick Habit Admission Data Admit Date/Time: 04/08/22 17:32 Attending Provider: Nnamdi Grimes Admit Provider: Zahida Mcgarry Primary Care Provider: Ashley Granados Other Providers: Darion Gomez Other Interventions: Discharge Summary Assessment (RN) Last Done: 04/10/22 10:01 Coding Level of Care Code D/C DAY MANAGEMENT >30 MINS Diagnoses Acute respiratory failure J96.00 Asthma exacerbation J45.41 Asthma persistence: persistent Asthma severity: moderate HIV (human immunodeficiency virus infection) B20 Current smoker F17.200
== END 2022-04-10 10:32 | disposition home or self-care (01) | DRG 202 ==
LOC: ED 14:24 → 2S 17:32 → SUATTDRO 17:32 → 2S 18:42 → 3N 04-09 16:09

== ENCOUNTER 2024-07-21 04:35 | Inpatient (IN) ==
--- NOTE | 2024-07-21 04:49 | Emergency Department Note ---
History of Present Illness General Chief complaint: Shortness of Breath/Dyspnea Stated complaint: SOB Time Seen by Provider: 07/21/24 04:39 Source: EMS History of Present Illness Provider complaint: Altered mental status difficulty breathing 34-year-old male presents emergency department for altered mental status and difficulty breathing. EMS reports that the patient came out of his own residence on his own accord but then would not speak and was having difficulty breathing. They thought he was hypoxic and tachycardic and hypotensive at first. On arrival the patient is not answering any questions and is staring to his right. Past Med/Surg History Problem List (Updated 07/21/24 @ 06:12 by Edmond Beltran MD) Asthmaticus, status (Acute) Social History Smoking Status: Never smoker Preferred Language: Azeri Feels Safe at Home: Yes Physical Exam Vital Signs Vital Signs - 24 hr 07/21/24 04:46 07/21/24 04:54 07/21/24 05:01 Temperature 36.5 C Temperature Source Oral Pulse Rate 102 H 93 H Pulse Rate [Apical] Pulse Rate from SpO2 Sensor Respiratory Rate 24 Respiratory Effort / Characteristics Labored Respiratory Depth Deep Respiratory Pattern Tachypnea Blood Pressure 166/125 H Blood Pressure Mean 138 Pulse Oximetry 96 Oxygen Delivery Method Room Air Room Air Sepsis Recent Fever Within 48 Hours No Sepsis New/Unexplained Change in Mental Status Yes Sepsis Action Taken by Nursing No Action Required 07/21/24 05:03 07/21/24 05:21 07/21/24 05:33 Temperature Temperature Source Pulse Rate 69 Pulse Rate [Apical] 87 Pulse Rate from SpO2 Sensor 67 Respiratory Rate 20 20 Respiratory Effort / Characteristics Spontaneous Respiratory Depth Respiratory Pattern Blood Pressure 135/84 Blood Pressure Mean 101 Pulse Oximetry 96 96 100 Oxygen Delivery Method Room Air Room Air Room Air Sepsis Recent Fever Within 48 Hours Sepsis New/Unexplained Change in Mental Status Sepsis Action Taken by Nursing Physical Exam HENT: Exam performed. - Head: Normocephalic and atraumatic. - Right Ear: External ear normal. No mastoid erythema - Left Ear: External ear normal. No mastoid erythema - Mouth/Throat: The oropharynx is clear and moist. No trismus in the jaw. No dental abscesses or uvula swelling. No oropharyngeal exudate or tonsillar abscesses. EYES: Conjunctivae and EOM are normal. Pupils are equal, round, and reactive to light. Right eye exhibits no discharge. Left eye exhibits no discharge. No scleral icterus. NECK: Normal range of motion. Neck supple. No JVD present. CV: Tachycardic rate, regular rhythm, normal heart sounds and intact distal pulses. There is no peripheral edema. Palpable radial pulses bue. PULM/CHEST: Tachypneic. Diminished inspiratory breath sounds bilaterally. Expiratory wheezes bilaterally. ABD: The abdomen is soft.There is no tenderness. There is no rebound, no guarding. NEURO: GCS eye subscore is 4. GCS verbal subscore is 1. GCS motor subscore is 5. SKIN: Diaphoretic. Course Course 0439: The patient was evaluated in room A1. A complete history and physical exam was performed Cardiac monitoring: An order was placed for continuous cardiac monitoring. The monitor shows a rate of 100 with sinus rhythm interpreted by me Patient is unable to answer any questions. His oxygen saturation is stable on room air. 0451: Patient is now talking however he appears very confused. Patient keeps saying he thought he was going to earlier tonight. Chest x-ray viewed by me shows no infiltrate or pneumothorax. Will take the patient for CT of the head. 0502: Patient appears more oriented now. He denies any drug use or smoking. Patient states his only medical problems are asthma and HIV. He reports his viral load is undetectable. Does not know his last CD4 count. ABG shows. Nursing reports that the patient did admit to doing some drugs earlier today however the patient is denying this to me. Patient's ABG shows a arterial pH of 7.19 arterial pCO2 of 73.5 and 89% on room air. Patient be ordered hour-long breathing treatment as well as Solu-Medrol 125 mg IV. 0601: Vital signs stable while receiving hour-long DuoNeb treatment. On reassessment patient states he feels better after IV steroids and while receiving hour-long breathing treatment. Patient's lungs do appear to be moving more air and there is more wheezing now. CT of the head is unremarkable. Chest x-ray unremarkable. Other than the ABG, labs are unremarkable. Urine drug screen pending. Patient will be admitted to the hospitalist team for asthma exacerbation. 0611: Discussed case with [facility] hospitalist Dr. Quiroz who states he will evaluate the patient for admission. Administered Medications Discontinued Medications Albuterol (Albut/Ipratrop 3mg/0.5mg Neb 3 Ml Vial) 12 ml NEB ONE ONE; Protocol Stop: 07/21/24 04:57 Last Admin: 07/21/24 05:21 Dose: 12 ml Documented By: PINKY Methylprednisolone (Methylprednisolone 125 Mg/2 Ml Vial) 125 mg IV NOW STA Stop: 07/21/24 04:57 Last Admin: 07/21/24 05:25 Dose: 125 mg Documented By: QING Critical Care Time Critical Care Time: Yes Total Critical Care Time: 62 I have personally spent greater than 62 minutes of critical care time in the direct management of this patient. This includes bedside care, interpretation of diagnostic studies, and testing, discussion with consultants, patient, and family members, and other required patient management activities. This 62 minutes is in excess of all separately billable procedures. Medical Decision Making Laboratory Data Attestation: I reviewed the patient's lab results. 07/21/24 04:46 07/21/24 04:46 Lab Results 07/21/24 07/21/24 07/21/24 Range/Units 04:43 04:46 04:52 WBC 5.66 (4.8-10.8) K/ul RBC 4.89 (4.70-6.10) M/uL Hgb 14.6 (14.0-18.0) g/dl POC Hgb 15.0 (14.0-18.0) g/dl Hct 45.9 (42.0-52.0) % POC Hct 44 (42-52) % MCV 93.9 (80.0-100.0) fL MCH 29.9 (25.0-34.0) pg MCHC 31.8 L (32.0-36.0) g/dL RDW Std Deviation 43.6 (36.4-46.3) fL RDW Coeff of Mariann 12.7 (11.5-14.5) % Plt Count 310 (130-400) K/uL MPV 9.1 L (9.4-12.4) fL Immature Gran % (Auto) 0.2 % Neut % (Auto) 24.1 % Lymph % (Auto) 50.0 % [place] % (Auto) 14.0 % Eos % (Auto) 11.0 % Baso % (Auto) 0.7 % Neut # (Auto) 1.37 L (1.40-6.50) K/uL Lymph # (Auto) 2.83 (1.20-3.40) K/uL [place] # (Auto) 0.79 H (0.11-0.59) K/uL Eos # (Auto) 0.62 H (0.00-0.50) K/uL Baso # (Auto) 0.04 (0.00-0.20) K/uL Immature Gran # (Auto) 0.01 (0.01-0.20) K/uL PT 11.4 (9.0-12.0) Seconds INR 1.1 (0.9-1.1) APTT 24 (21-31) Seconds PTT Ratio 0.9 POC pH 7.20 L (7.35-7.45) POC pCO2 74 H (35-46) mmHg POC pO2 71 L (80-95) mmHg POC HCO3 29 H (19-24) liam/L POC Total CO2 31 (24-31) mmol/L POC Base Excess 1.0 (-9-1.8) liam/L POC ABG O2 Sat 89.0 L (90-95) % Carboxyhemoglobin % THgb POC Sodium 144 (135-144) mmol/L Sodium 144 (136-145) mmol/L POC Potassium 4.0 (3.3-5.0) mmol/L Potassium 4.1 (3.5-5.1) mmol/L Chloride 106 (98-107) mmol/L Carbon Dioxide 32 (21-32) mmol/L Anion Gap 6 (3-11) BUN 10 (6-23) mg/dl Creatinine 1.14 (0.6-1.4) mg/dl Est Cr Clr Drug Dosing 92.5 ml/min Est GFR ( Amer) 95.4 ml/min Est GFR (Non-Af Amer) 82.3 ml/min BUN/Creatinine Ratio 8.8 L (10-20) Glucose 160 H (70-99(Fasting)) mg/dl POC Glucose 158 H (70-99) mg/dl Calcium 9.0 (8.6-10.3) mg/dl Magnesium 2.2 (1.7-2.4) mg/dl Total Bilirubin 0.3 (0.2-1.0) mg/dl Direct Bilirubin 0.1 (0-0.2) mg/dl AST 29 (13-39) U/L ALT 18 (7-52) U/L Alkaline Phosphatase 71 (34-104) U/L Ammonia 52.0 (18-72) umol/L Troponin I High Sens 3.8 (0-20) pg/ml B-Natriuretic Peptide 13 (0-100) pg/ml Total Protein 7.4 (6.0-8.3) gm/dl Albumin 5.0 (3.4-5.0) gm/dl Lipase 11 (11-82) U/L Urine Color Urine Appearance (Clear) Urine pH (4.5-7.5) Ur Specific [place] (1.000-1.030) Urine Protein (Negative) Urine Glucose (UA) (Negative) Urine Ketones (Negative) Urine Blood (Negative) Urine Nitrite (Negative) Urine Bilirubin (Negative) Urine Urobilinogen (Negative) Ur Leukocyte Esterase (Negative) Urine WBC (Auto) (0-5) /hpf Urine RBC (Auto) (0-2) /hpf U Hyaline Cast (Auto) (0-2) /lpf U Epithel Cells (Auto) (0-2) /hpf Urine Bacteria (Auto) (None Seen) Ethyl Alcohol mg/dL < 10.0 (<10.0) mg/dl Adenovirus (PCR) Not Detected (NotDetected) B. pertussis DNA (PCR) Not Detected (NotDetected) B.parapertussis DNA PCR Not Detected (NotDetected) C. pneumoniae DNA (PCR) Not Detected (NotDetected) Coronavirus OC43 (PCR) Not Detected (NotDetected) Coronavirus HKU1 (PCR) Not Detected (NotDetected) Coronavirus 229E (PCR) Not Detected (NotDetected) SARS-CoV-2 (PCR) Not Detected (NotDetected) Coronavirus NL63 (PCR) Not Detected (NotDetected) Human Metapneumovir PCR Not Detected (NotDetected) Influenza Type A (PCR) Not Detected (NotDetected) Influenza Type B (PCR) Not Detected (NotDetected) M. pneumoniae (PCR) Not Detected (NotDetected) Parainfluenza 1 (PCR) Not Detected (NotDetected) Parainfluenza 2 (PCR) Not Detected (NotDetected) Parainfluenza 3 (PCR) Not Detected (NotDetected) Parainfluenza 4 (PCR) Not Detected (NotDetected) RSV (PCR) Not Detected (NotDetected) Entero/Rhino (PCR) Not Detected (NotDetected) 07/21/24 07/21/24 Range/Units 05:00 05:28 WBC (4.8-10.8) K/ul RBC (4.70-6.10) M/uL Hgb (14.0-18.0) g/dl POC Hgb (14.0-18.0) g/dl Hct (42.0-52.0) % POC Hct (42-52) % MCV (80.0-100.0) fL MCH (25.0-34.0) pg MCHC (32.0-36.0) g/dL RDW Std Deviation (36.4-46.3) fL RDW Coeff of Mariann (11.5-14.5) % Plt Count (130-400) K/uL MPV (9.4-12.4) fL Immature Gran % (Auto) % Neut % (Auto) % Lymph % (Auto) % [place] % (Auto) % Eos % (Auto) % Baso % (Auto) % Neut # (Auto) (1.40-6.50) K/uL Lymph # (Auto) (1.20-3.40) K/uL [place] # (Auto) (0.11-0.59) K/uL Eos # (Auto) (0.00-0.50) K/uL Baso # (Auto) (0.00-0.20) K/uL Immature Gran # (Auto) (0.01-0.20) K/uL PT (9.0-12.0) Seconds INR (0.9-1.1) APTT (21-31) Seconds PTT Ratio POC pH (7.35-7.45) POC pCO2 (35-46) mmHg POC pO2 (80-95) mmHg POC HCO3 (19-24) ilam/L POC Total CO2 (24-31) mmol/L POC Base Excess (-9-1.8) liam/L POC ABG O2 Sat (90-95) % Carboxyhemoglobin < 0.3 % THgb POC Sodium (135-144) mmol/L Sodium (136-145) mmol/L POC Potassium (3.3-5.0) mmol/L Potassium (3.5-5.1) mmol/L Chloride (98-107) mmol/L Carbon Dioxide (21-32) mmol/L Anion Gap (3-11) BUN (6-23) mg/dl Creatinine (0.6-1.4) mg/dl Est Cr Clr Drug Dosing ml/min Est GFR ( Amer) ml/min Est GFR (Non-Af Amer) ml/min BUN/Creatinine Ratio (10-20) Glucose (70-99(Fasting)) mg/dl POC Glucose (70-99) mg/dl Calcium (8.6-10.3) mg/dl Magnesium (1.7-2.4) mg/dl Total Bilirubin (0.2-1.0) mg/dl Direct Bilirubin (0-0.2) mg/dl AST (13-39) U/L ALT (7-52) U/L Alkaline Phosphatase (34-104) U/L Ammonia (18-72) umol/L Troponin I High Sens (0-20) pg/ml B-Natriuretic Peptide (0-100) pg/ml Total Protein (6.0-8.3) gm/dl Albumin (3.4-5.0) gm/dl Lipase (11-82) U/L Urine Color Yellow Urine Appearance Clear (Clear) Urine pH 6.0 (4.5-7.5) Ur Specific [place] 1.024 (1.000-1.030) Urine Protein 2+ H (Negative) Urine Glucose (UA) Negative (Negative) Urine Ketones Negative (Negative) Urine Blood Trace H (Negative) Urine Nitrite Negative (Negative) Urine Bilirubin Negative (Negative) Urine Urobilinogen Negative (Negative) Ur Leukocyte Esterase Negative (Negative) Urine WBC (Auto) 0-5 (0-5) /hpf Urine RBC (Auto) 0-2 (0-2) /hpf U Hyaline Cast (Auto) 3-5 H (0-2) /lpf U Epithel Cells (Auto) 0-2 (0-2) /hpf Urine Bacteria (Auto) None Seen (None Seen) Ethyl Alcohol mg/dL (<10.0) mg/dl Adenovirus (PCR) (NotDetected) B. pertussis DNA (PCR) (NotDetected) B.parapertussis DNA PCR (NotDetected) C. pneumoniae DNA (PCR) (NotDetected) Coronavirus OC43 (PCR) (NotDetected) Coronavirus HKU1 (PCR) (NotDetected) Coronavirus 229E (PCR) (NotDetected) SARS-CoV-2 (PCR) (NotDetected) Coronavirus NL63 (PCR) (NotDetected) Human Metapneumovir PCR (NotDetected) Influenza Type A (PCR) (NotDetected) Influenza Type B (PCR) (NotDetected) M. pneumoniae (PCR) (NotDetected) Parainfluenza 1 (PCR) (NotDetected) Parainfluenza 2 (PCR) (NotDetected) Parainfluenza 3 (PCR) (NotDetected) Parainfluenza 4 (PCR) (NotDetected) RSV (PCR) (NotDetected) Entero/Rhino (PCR) (NotDetected) Imaging Data Attestation: I personally reviewed and interpreted this imaging study as follows: My Impression: Chest x-ray: Chest x-ray negative. Airway clear. No pneumothorax. No consolidation. No cardiomegaly or cephalization.. No free air under the diaphragm. No fractures of the skeletal structures. CT head: No [facility] Radiologist's Impression: Head CT 07/21/24 04:39 Exam(s): CT HEAD Without Contrast EXAM: CT Head Without Intravenous Contrast CLINICAL HISTORY: Reason for exam: ams. TECHNIQUE: Axial computed tomography images of the head/brain without intravenous contrast. Automated exposure control was utilized for the study. A dose lowering technique was utilized adhering to the principles of ALARA. COMPARISON: No relevant prior studies available. FINDINGS: Brain: Unremarkable. No hemorrhage. No significant white matter disease. No edema. Ventricles: Unremarkable. No ventriculomegaly. Bones/joints: Unremarkable. No acute fracture. Soft tissues: Unremarkable. Sinuses: Unremarkable as visualized. No acute sinusitis. Mastoid air cells: Unremarkable as visualized. No mastoid effusion. IMPRESSION: Normal head/brain CT. Electronically signed by: Abel Hayes MD 07/21/24 05:44 AM ECG Data Attestation: I personally reviewed and interpreted this ECG as follows: Rate (beats per minute): 90 Rhythm: + sinus with SA ECG Intervals/blocks: + Normal QRS, + Normal ND and + Normal QT-c ECG ST segments: + Normal ST segments [facility] Narrative 0439: The patient was evaluated in room A1. A complete history and physical exam was performed Cardiac monitoring: An order was placed for continuous cardiac monitoring. The monitor shows a rate of 100 with sinus rhythm interpreted by me Patient is unable to answer any questions. His oxygen saturation is stable on room air. 0451: Patient is now talking however he appears very confused. Patient keeps saying he thought he was going to earlier tonight. Chest x-ray viewed by me shows no infiltrate or pneumothorax. Will take the patient for CT of the head. 0502: Patient appears more oriented now. He denies any drug use or smoking. Patient states his only medical problems are asthma and HIV. He reports his viral load is undetectable. Does not know his last CD4 count. ABG shows. Nursing reports that the patient did admit to doing some drugs earlier today however the patient is denying this to me. Patient's ABG shows a arterial pH of 7.19 arterial pCO2 of 73.5 and 89% on room air. Patient be ordered hour-long breathing treatment as well as Solu-Medrol 125 mg IV. 0601: Vital signs stable while receiving hour-long DuoNeb treatment. On reassessment patient states he feels better after IV steroids and while receiving hour-long breathing treatment. Patient's lungs do appear to be moving more air and there is more wheezing now. CT of the head is unremarkable. Chest x-ray unremarkable. Other than the ABG, labs are unremarkable. Urine drug screen pending. Patient will be admitted to the hospitalist team for asthma exacerbation. 0611: Discussed case with [facility] hospitalist Dr. Quiroz who states he will evaluate the patient for admission. Impression & Plan Asthmaticus, status Discharge Plan Visit Data Chief Complaint: Shortness of Breath/Dyspnea Stated Complaint: SOB ED Provider: Edmond Beltran Discharge Problem: Asthmaticus, status Patient Disposition: Admitted As Inpatient Forms Stand Alone Forms: [facility] Referrals Referrals: PCP,NO [Primary Care Provider] - Discharge Problem: Asthmaticus, status Qualifiers: Asthma severity: severe Asthma persistence: unspecified Qualified Code(s): J 45.902 - Unspecified asthma with status asthmaticus
[2024-07-21 05:09] LABS: iSTAT Arterial Blood Gas HCO3 29 meg/L (19-24); iSTAT Arterial Blood Gas pCO2 74 mmHg (35-46); iSTAT Arterial Blood Gas pO2 71 mmHg (80-95); iSTAT Carbon Dioxide 31 mmol/L (24-31); iSTAT Hematocrit 44 % (42-52); iSTAT Sodium 144 mmol/L (135-144)
[2024-07-21 05:17] LABS: Basophils # (auto) 0.04 K/uL (0.00-0.20); Basophils % (auto) 0.7 %; Eosinophils # (auto) 0.62 K/uL (0.00-0.50); Hematocrit (blood only) 45.9 % (42.0-52.0); Hemoglobin 14.6 g/dl (14.0-18.0); Immature Granulocytes # (auto) 0.01 K/uL (0.01-0.20); Immature Granulocytes % (auto) 0.2 %; Lymphocytes # (auto) 2.83 K/uL (1.20-3.40); Mean Corpuscular Hemoglobin 29.9 pg (25.0-34.0); Mean Corpuscular Hgb Conc 31.8 g/dL (32.0-36.0); Mean Corpuscular Volume 93.9 fL (80.0-100.0); Mean Platelet Volume 9.1 fL (9.4-12.4); Monocytes # (auto) 0.79 K/uL (0.11-0.59); Neutrophils # (auto) 1.37 K/uL (1.40-6.50); Neutrophils % (auto) 24.1 %; Platelet Count 310 K/uL (130-400); RDW Coefficient of Variation 12.7 % (11.5-14.5); RDW Standard Deviation 43.6 fL (36.4-46.3); Red Blood Count 4.89 M/uL (4.70-6.10); White Blood Count 5.66 K/ul (4.8-10.8)
[2024-07-21] MEDS: ALBUT/IPRATROP 3MG/0.5MG NEB 3 ML VIAL NEB ONE (05:21)
[2024-07-21] MEDS: methylPREDNISolone 125 MG/2 ML VIAL IV STA (05:25)
[2024-07-21 05:28] LABS: BUN Creatinine Ratio 8.8 (10-20); Bilirubin Direct 0.1 mg/dl (0-0.2); Bilirubin,Total 0.3 mg/dl (0.2-1.0); Creatinine Clr Calc Pharmacy 92.5 ml/min; Est GFR (African American) 95.4 ml/min; Est GFR (Non-African American) 82.3 ml/min; Magnesium 2.2 mg/dl (1.7-2.4); Potassium 4.1 mmol/L (3.5-5.1); Total Protein 7.4 gm/dl (6.0-8.3)
[2024-07-21 05:33] LABS: Troponin I High Sensitivity 3.8 pg/ml (0-20)
[2024-07-21 05:39] LABS: INR 1.1 (0.9-1.1); Partial Thromboplastin Ratio 0.9; Partial Thromboplastin Time 24 Seconds (21-31); Prothrombin Time 11.4 Seconds (9.0-12.0)
--- NOTE | 2024-07-21 05:45 | CT Scan Report ---
Exam(s): CT HEAD Without Contrast EXAM: CT Head Without Intravenous Contrast CLINICAL HISTORY: Reason for exam: ams. TECHNIQUE: Axial computed tomography images of the head/brain without intravenous contrast. Automated exposure control was utilized for the study. A dose lowering technique was utilized adhering to the principles of ALARA. COMPARISON: No relevant prior studies available. FINDINGS: Brain: Unremarkable. No hemorrhage. No significant white matter disease. No edema. Ventricles: Unremarkable. No ventriculomegaly. Bones/joints: Unremarkable. No acute fracture. Soft tissues: Unremarkable. Sinuses: Unremarkable as visualized. No acute sinusitis. Mastoid air cells: Unremarkable as visualized. No mastoid effusion. IMPRESSION: Normal head/brain CT. Electronically signed by: Abel Hayes MD 07/21/24 05:44 AM
[2024-07-21 05:48] LABS: Appearance Urine Clear (Clear); Bacteria Urine Automated None Seen (None Seen); Bilirubin Urine Negative (Negative); Blood Urine Trace (Negative); Color Urine Yellow; Epithelial Cell Urine Auto 0-2 /hpf (0-2); Glucose Urine UA Negative (Negative); Ketones Urine Negative (Negative); Leukocyte Esterase Urine Negative (Negative); Nitrite Urine Negative (Negative); Protein Urine 2+ (Negative); RBC Urine Automated 0-2 /hpf (0-2); Specific Gravity Urine 1.024 (1.000-1.030); Urobilinogen Urine Negative (Negative); WBC Urine Automated 0-5 /hpf (0-5)
[2024-07-21 05:49] LABS: Adenovirus PCR Not Detected (NotDetected); Bordetella parapertussis PCR Not Detected (NotDetected); Bordetella pertussis PCR Not Detected (NotDetected); Chlamydia pneumoniae PCR Not Detected (NotDetected); Coronavirus 229E PCR Not Detected (NotDetected); Coronavirus CoV-2 (COVID19)PCR Not Detected (NotDetected); Coronavirus HKU1 PCR Not Detected (NotDetected); Coronavirus NL63 PCR Not Detected (NotDetected); Coronavirus OC43PCR Not Detected (NotDetected); Human Metapneumovirus PCR Not Detected (NotDetected); Influenza A PCR Not Detected (NotDetected); Influenza B PCR Not Detected (NotDetected); Mycoplasma pneumoniae PCR Not Detected (NotDetected); Parainfluenza Virus 1 PCR Not Detected (NotDetected); Parainfluenza Virus 2 PCR Not Detected (NotDetected); Parainfluenza Virus 3 PCR Not Detected (NotDetected); Parainfluenza Virus 4 PCR Not Detected (NotDetected); Respiratory Syncytial VirusPCR Not Detected (NotDetected); Rhinovirus/Enterovirus PCR Not Detected (NotDetected)
[2024-07-21 06:15] LABS: Amphetamines+Metham, Urine Neg (Neg); Barbiturates, Urine Neg (Neg); Benzodiazepine, Urine Neg (Neg); Cocaine, Urine Neg (Neg); Fentanyl, Urine Neg (Neg); MDMA (Ecstacy), Urine Neg (Neg); Marijuana, Urine Neg (Neg); Methadone, Urine Neg (Neg); Opiate, Urine Neg (Neg); Phencyclidine, Urine Neg (Neg)
--- NOTE | 2024-07-21 06:34 | XRay Report ---
XR chest 1V portable CLINICAL HISTORY: Altered mental status. COMPARISON STUDY: No previous studies for comparison. FINDINGS: Lung volumes are normal. Lungs are clear. There is no pneumothorax or pleural effusion. Car diac size is normal. Mediastinal contours are normal. There is no evidence for pulmonary edema. Mild thoracolumbar S-shaped scoliosis is incidentally noted. IMPRESSION: No acute cardiopulmonary findings. ACT 112: Negative or not required by law. Electronically signed by: Phong Webber M.D. 07/21/2024 6:33 AM
[2024-07-21] MEDS: ACETAMINOPHEN 1,000 MG/100 ML VIAL IV STA (06:49)
--- NOTE | 2024-07-21 06:59 | History & Physical Report ---
Date of Service July 21, 2024 Assessment & Plan (1) Asthma exacerbation: Plan: 34-year-old male past med significant for HIV, asthma comes because of shortness of breath. Patient states he woke up with shortness of breath. Having cough bringing some phlegm. Having headaches. Having nausea. Denies any fevers. No blurred visions. No runny nose or sore throat. No chest pain. No abdominal pain. Normal bowel and bladder movements. Hemodynamics are okay. Asthma exacerbation Chest x-ray okay Respiratory bio fire negative Received Solu-Medrol and nebs in the ER Will continue with IV Solu-Medrol 40 mg 3 times daily, nebs [id number] and as needed and p.o. doxycycline States uses albuterol at home Monitoring telemetry Headache CT head is okay Will do a dose of IV Tylenol Will monitor History of HIV Continue home medications DVT prophylaxis Lovenox Disposition Telemetry Full code. History of Present Illness Chief Complaint: Shortness of breath Primary Care Provider: NO PCP 34-year-old male past med significant for HIV, asthma comes because of shortness of breath. Patient states he woke up with shortness of breath. Having cough bringing some phlegm. Having headaches. Having nausea. Denies any fevers. No blurred visions. No runny nose or sore throat. No chest pain. No abdominal pain. Normal bowel and bladder movements. Hemodynamics are okay. Past medical history. As mentioned above Past surgical history. Denies any surgeries. Social social history. States last smoking was 3 to 4 months ago. Prior to that smoked 2 cigarettes daily. Alcohol occasional. Smokes marijuana 3 to 4 months ago. Denies any IV drug abuse. Family history. Denies any family history. Allergies Allergy/AdvReac Type Severity Reaction Status Date / Time diphenhydramine AdvReac Severe Difficulty Verified 07/21/24 07:46 Breathing Home Medications Medication Instructions Recorded Confirmed Type albuterol sulfate 90 mcg/actuation 2 inh inhalation Q4H PRN shortness 06/17/24 06/17/24 Rx aerosol inhaler (Ventolin HFA) of breath or wheezing #8.5 grams fluticasone fur. 100 mcg-umeclid 1 inh inhalation DAILY #60 ea 06/17/24 06/17/24 Rx 62.5 mcg-vilant 25 mcg inhalat.powder (Trelegy Ellipta) Past Med/Surg History Problem List (Updated 07/21/24 @ 08:42 by Scooter Quiroz MD) Asthma exacerbation Asthma exacerbation Asthmaticus, status (Acute) Allergic rhinitis with postnasal drip Marijuana smoker in remission Ex-smoker Asthma-COPD overlap syndrome Lab test negative for COVID-19 virus (Acute) COVID-19 (Acute) Current smoker HIV (human immunodeficiency virus infection) (Acute) Inguinal hernia Asthma (Acute) Medical History Acute respiratory failure with hypoxia and hypercapnia Asthma exacerbation Respiratory failure with hypoxia Hypoxia Surgical History No pertinent past surgical history Family History Other Family history non-contributory Social History (System 07/21/24 @ 07:46 by Bridgette Montoya) Smoking Status: Never smoker Tobacco Type: Cigarettes Age Started Using Tobacco: 14; Age Quit Using Tobacco: 31; packs per day: 1; Second Hand Exposure: No; Hx Alcohol Use: Yes Alcohol type: hard liquor Alcohol Intake Frequency: 2-4 x/Month Hx Substance Use: Yes Prescribed Medications: Marijuana Last Used Substance: Days (ago) Preferred Language: Slovenian Communication Ability: Effective Janitor Caretaker Required: No Beliefs That Will Affect Care: None Current Living Situation: Family Feels Safe at Home: Yes Assistive Devices: None Review of Systems Review of Systems: All systems reviewed & are unremarkable except as noted in HPI & below Physical Exam Physical Exam: General- Not in acute distress Head- atraumatic Eyes- PERRL. ENT- oropharynx clear Neck- supple, no JVD. Lungs- clear to auscultation mil b/l wheezing, no crackles Heart- regular rate and rhythm; no murmur, no gallop. Abdomen- normal bowel sounds, soft, nontender, no distension Extremities- no pretibial edema, no erythema seen. Neuro- alert, oriented PERRL, no facial palsy; no dysarthria; moves extremities. Results & Data Results & Data Vital Signs (Past 12 Hours) Vital Signs Temp Pulse Pulse Resp BP Pulse Ox O2 Del Method 07/21/24 05:33 69 20 135/84 100 Room Air 07/21/24 05:21 87 20 96 Room Air 07/21/24 05:03 96 Room Air 07/21/24 05:01 36.5 C 93 H 24 166/125 H 96 Room Air 07/21/24 04:54 Room Air 07/21/24 04:46 102 H Diagnostic Findings Laboratory Results WBC 5.66 K/ul (4.8-10.8) 07/21/24 04:46 RBC 4.89 M/uL (4.70-6.10) 07/21/24 04:46 Hgb 14.6 g/dl (14.0-18.0) 07/21/24 04:46 POC Hgb 15.0 g/dl (14.0-18.0) 07/21/24 04:52 Hct 45.9 % (42.0-52.0) 07/21/24 04:46 POC Hct 44 % (42-52) 07/21/24 04:52 MCV 93.9 fL (80.0-100.0) 07/21/24 04:46 MCH 29.9 pg (25.0-34.0) 07/21/24 04:46 MCHC 31.8 g/dL (32.0-36.0) L 07/21/24 04:46 RDW Std Deviation 43.6 fL (36.4-46.3) 07/21/24 04:46 RDW Coeff of Mariann 12.7 % (11.5-14.5) 07/21/24 04:46 Plt Count 310 K/uL (130-400) 07/21/24 04:46 MPV 9.1 fL (9.4-12.4) L 07/21/24 04:46 Immature Gran % (Auto) 0.2 % 07/21/24 04:46 Neut % (Auto) 24.1 % 07/21/24 04:46 Lymph % (Auto) 50.0 % 07/21/24 04:46 [place] % (Auto) 14.0 % 07/21/24 04:46 Eos % (Auto) 11.0 % 07/21/24 04:46 Baso % (Auto) 0.7 % 07/21/24 04:46 Neut # (Auto) 1.37 K/uL (1.40-6.50) L 07/21/24 04:46 Lymph # (Auto) 2.83 K/uL (1.20-3.40) 07/21/24 04:46 [place] # (Auto) 0.79 K/uL (0.11-0.59) H 07/21/24 04:46 Eos # (Auto) 0.62 K/uL (0.00-0.50) H 07/21/24 04:46 Baso # (Auto) 0.04 K/uL (0.00-0.20) 07/21/24 04:46 Immature Gran # (Auto) 0.01 K/uL (0.01-0.20) 07/21/24 04:46 PT 11.4 Seconds (9.0-12.0) 07/21/24 04:46 INR 1.1 (0.9-1.1) 07/21/24 04:46 APTT 24 Seconds (21-31) 07/21/24 04:46 PTT Ratio 0.9 07/21/24 04:46 POC pH 7.20 (7.35-7.45) L 07/21/24 04:52 POC pCO2 74 mmHg (35-46) H 07/21/24 04:52 POC pO2 71 mmHg (80-95) L 07/21/24 04:52 POC HCO3 29 liam/L (19-24) H 07/21/24 04:52 POC Total CO2 31 mmol/L (24-31) 07/21/24 04:52 POC Base Excess 1.0 liam/L (-9-1.8) 07/21/24 04:52 POC ABG O2 Sat 89.0 % (90-95) L 07/21/24 04:52 Carboxyhemoglobin < 0.3 % THgb 07/21/24 05:00 POC Sodium 144 mmol/L (135-144) 07/21/24 04:52 Sodium 144 mmol/L (136-145) 07/21/24 04:46 POC Potassium 4.0 mmol/L (3.3-5.0) 07/21/24 04:52 Potassium 4.1 mmol/L (3.5-5.1) 07/21/24 04:46 Chloride 106 mmol/L (98-107) 07/21/24 04:46 Carbon Dioxide 32 mmol/L (21-32) 07/21/24 04:46 Anion Gap 6 (3-11) 07/21/24 04:46 BUN 10 mg/dl (6-23) 07/21/24 04:46 Creatinine 1.14 mg/dl (0.6-1.4) 07/21/24 04:46 Est Cr Clr Drug Dosing 92.5 ml/min 07/21/24 04:46 Est GFR ( Amer) 95.4 ml/min 07/21/24 04:46 Est GFR (Non-Af Amer) 82.3 ml/min 07/21/24 04:46 BUN/Creatinine Ratio 8.8 (10-20) L 07/21/24 04:46 Glucose 160 mg/dl (70-99(Fasting)) H 07/21/24 04:46 POC Glucose 158 mg/dl (70-99) H 07/21/24 04:43 Calcium 9.0 mg/dl (8.6-10.3) 07/21/24 04:46 Magnesium 2.2 mg/dl (1.7-2.4) 07/21/24 04:46 Total Bilirubin 0.3 mg/dl (0.2-1.0) 07/21/24 04:46 Direct Bilirubin 0.1 mg/dl (0-0.2) 07/21/24 04:46 AST 29 U/L (13-39) 07/21/24 04:46 ALT 18 U/L (7-52) 07/21/24 04:46 Alkaline Phosphatase 71 U/L (34-104) 07/21/24 04:46 Ammonia 52.0 umol/L (18-72) 07/21/24 04:46 Troponin I High Sens 3.8 pg/ml (0-20) 07/21/24 04:46 B-Natriuretic Peptide 13 pg/ml (0-100) 07/21/24 04:46 Total Protein 7.4 gm/dl (6.0-8.3) 07/21/24 04:46 Albumin 5.0 gm/dl (3.4-5.0) 07/21/24 04:46 Lipase 11 U/L (11-82) 07/21/24 04:46 Urine Color Yellow 07/21/24 05:28 Urine Appearance Clear (Clear) 07/21/24 05:28 Urine pH 6.0 (4.5-7.5) 07/21/24 05:28 Ur Specific [place] 1.024 (1.000-1.030) 07/21/24 05:28 Urine Protein 2+ (Negative) H 07/21/24 05:28 Urine Glucose (UA) Negative (Negative) 07/21/24 05:28 Urine Ketones Negative (Negative) 07/21/24 05:28 Urine Blood Trace (Negative) H 07/21/24 05:28 Urine Nitrite Negative (Negative) 07/21/24 05:28 Urine Bilirubin Negative (Negative) 07/21/24 05:28 Urine Urobilinogen Negative (Negative) 07/21/24 05:28 Ur Leukocyte Esterase Negative (Negative) 07/21/24 05:28 Urine WBC (Auto) 0-5 /hpf (0-5) 07/21/24 05:28 Urine RBC (Auto) 0-2 /hpf (0-2) 07/21/24 05:28 U Hyaline Cast (Auto) 3-5 /lpf (0-2) H 07/21/24 05:28 U Epithel Cells (Auto) 0-2 /hpf (0-2) 07/21/24 05:28 Urine Bacteria (Auto) None Seen (None Seen) 07/21/24 05:28 Urine Opiates Screen Neg (Neg) 07/21/24 05:28 Ur Methadone, Qual Neg (Neg) 07/21/24 05:28 Urine Fentanyl Screen Neg (Neg) 07/21/24 05:28 Urine Barbiturates Neg (Neg) 07/21/24 05:28 Ur Phencyclidine (PCP) Neg (Neg) 07/21/24 05:28 U Amphetamin/Meth Scrn Neg (Neg) 07/21/24 05:28 MDMA (Ecstasy) Screen Neg (Neg) 07/21/24 05:28 U Benzodiazepines Scrn Neg (Neg) 07/21/24 05:28 Ur Cocaine Metabolite Neg (Neg) 07/21/24 05:28 U Marijuana (THC) Screen Neg (Neg) 07/21/24 05:28 Ethyl Alcohol mg/dL < 10.0 mg/dl (<10.0) 07/21/24 04:46 Adenovirus (PCR) Not Detected (NotDetected) 07/21/24 04:46 B. pertussis DNA (PCR) Not Detected (NotDetected) 07/21/24 04:46 B.parapertussis DNA PCR Not Detected (NotDetected) 07/21/24 04:46 C. pneumoniae DNA (PCR) Not Detected (NotDetected) 07/21/24 04:46 Coronavirus OC43 (PCR) Not Detected (NotDetected) 07/21/24 04:46 Coronavirus HKU1 (PCR) Not Detected (NotDetected) 07/21/24 04:46 Coronavirus 229E (PCR) Not Detected (NotDetected) 07/21/24 04:46 SARS-CoV-2 (PCR) Not Detected (NotDetected) 07/21/24 04:46 Coronavirus NL63 (PCR) Not Detected (NotDetected) 07/21/24 04:46 Human Metapneumovir PCR Not Detected (NotDetected) 07/21/24 04:46 Influenza Type A (PCR) Not Detected (NotDetected) 07/21/24 04:46 Influenza Type B (PCR) Not Detected (NotDetected) 07/21/24 04:46 M. pneumoniae (PCR) Not Detected (NotDetected) 07/21/24 04:46 Parainfluenza 1 (PCR) Not Detected (NotDetected) 07/21/24 04:46 Parainfluenza 2 (PCR) Not Detected (NotDetected) 07/21/24 04:46 Parainfluenza 3 (PCR) Not Detected (NotDetected) 07/21/24 04:46 Parainfluenza 4 (PCR) Not Detected (NotDetected) 07/21/24 04:46 RSV (PCR) Not Detected (NotDetected) 07/21/24 04:46 Entero/Rhino (PCR) Not Detected (NotDetected) 07/21/24 04:46 Impressions Chest X-Ray 07/21/24 04:39 XR chest 1V portable CLINICAL HISTORY: Altered mental status. COMPARISON STUDY: No previous studies for comparison. FINDINGS: Lung volumes are normal. Lungs are clear. There is no pneumothorax or pleural effusion. Cardiac size is normal. Mediastinal contours are normal. There is no evidence for pulmonary edema. Mild thoracolumbar S-shaped scoliosis is incidentally noted. IMPRESSION: No acute cardiopulmonary findings. ACT 112: Negative or not required by law. Electronically signed by: Phong Webber M.D. 07/21/2024 6:[address] 07/21/24 04:39 Exam(s): CT HEAD Without Contrast EXAM: CT Head Without Intravenous Contrast CLINICAL HISTORY: Reason for exam: ams. TECHNIQUE: Axial computed tomography images of the head/brain without intravenous contrast. Automated exposure control was utilized for the study. A dose lowering technique was utilized adhering to the principles of ALARA. COMPARISON: No relevant prior studies available. FINDINGS: Brain: Unremarkable. No hemorrhage. No significant white matter disease. No edema. Ventricles: Unremarkable. No ventriculomegaly. Bones/joints: Unremarkable. No acute fracture. Soft tissues: Unremarkable. Sinuses: Unremarkable as visualized. No acute sinusitis. Mastoid air cells: Unremarkable as visualized. No mastoid effusion. IMPRESSION: Normal head/brain CT. Electronically signed by: Abel Hayes MD 07/21/24 05:44 AM ECG Additional Comments: ECG. Sinus rhythm with marked sinus arrhythmia at rate of 90. Incomplete right bundle branch block. Possible left atrial enlargement. QTc 472 Code Status & VTE Plan VTE Prophylaxis Plan VTE Prophylaxis will be ordered: Yes
[2024-07-21] MEDS ORDERED: ALBUT/IPRATROP 3MG/0.5MG NEB 3 ML VIAL NEB PRN (10:04)
[2024-07-21] MEDS ORDERED: POLYETHYLENE (MIRALAX) 17 GM PACK PO PRN (10:04)
[2024-07-21] MEDS ORDERED: methylPREDNISolone 125 MG/2 ML VIAL IV SCH (10:04)
[2024-07-21] MEDS ORDERED: ACETAMINOPHEN 325 MG TAB PO PRN (10:04)
[2024-07-21] MEDS ORDERED: ONDANSETRON INJ 2 MG/ML 2 ML VIAL IV PRN (10:04)
[2024-07-21] MEDS ORDERED: NITROGLYCERIN SL 0.4 MG/TAB TAB SL PRN (10:04)
[2024-07-21 10:26] LABS: HCO3 VBG 22 mmol/L; Oxygen Saturation VBG 77.5 %; PCO2 VBG 45 mmHg (38-50); PO2 VBG 47 mmHg; pH VBG 7.29 (7.36-7.41)
[2024-07-21] MEDS: ALBUT/IPRATROP 3MG/0.5MG NEB 3 ML VIAL NEB SCH (10:50)
[2024-07-21] MEDS: ENOXAPARIN INJ 40 MG/0.4 ML SYR SQ SCH (10:53)
[2024-07-21] MEDS: DOXYCYCLINE HYCLATE 100 MG CAP PO SCH (10:54)
[2024-07-21 12:11] LABS: iSTAT Creatinine 1.3 mg/dl (0.6-1.3); iSTAT Hemoglobin 15.6 g/dl (14.0-18.0); iSTAT Ionized Calcium 1.22 mmol/l (1.12-1.32)
[2024-07-21] MEDS: methylPREDNISolone 40 MG in SYRINGE 0 ML IV SCH (14:37)
--- NOTE | 2024-07-21 14:45 | Communication Note ---
Date of Service: July 21, 2024 Patient seen and examined in the emergency department. Patient reports significant improvement in his shortness of breath. He was not in any respiratory distress; he was saturating well in room air. Denies chest pain, fever, chills, abdominal pain or urinary symptoms. On physical exam; Constitutional: WD/WN, vitals as above, NAD, sitting up in bed, pleasant, conversing easily Respiratory: Slightly decreased air entry. No wheeze Cardiovascular: RRR, no murmur, no edema Vessels: no JVD or carotid bruit Chest: normal inspection of chest Abdomen: normal bowel sounds, soft, nontender, no hepatosplenomegaly Musculoskeletal: no cyanosis or clubbing, extremities motor strength 5/5 Skin: no rashes, warm and dry normal turgor Neurologic: PERRL, EOMI, accommodation nl, no face palsy, no dysarthria CN's II- XI intact bilaterally and moves all extremities Psychiatric: A+Ox3, euthymic affect Assessment/plan Asthma exacerbation Patient presents with shortness of breath Respiratory BioFire negative Chest x-rayno acute finding Continue asyzom-ozn-mipgv DuoNebs, IV steroid and doxycycline Monitor SpO2; supplemental oxygen as needed to keep SpO2 around 88 to 92% Please note the above document was generated using voice recognition software. It may contain grammatical, syntax or spelling errors. Any formal questions or concerns about the content, text or information contained within the body of this dictation should be directly addressed to the provider for clarification
[2024-07-22 05:59] LABS: Basophils # (auto) 0.01 K/uL (0.00-0.20); Basophils % (auto) 0.1 %; Hematocrit (blood only) 41.4 % (42.0-52.0); Hemoglobin 13.6 g/dl (14.0-18.0); Immature Granulocytes # (auto) 0.06 K/uL (0.01-0.20); Immature Granulocytes % (auto) 0.5 %; Lymphocytes # (auto) 0.85 K/uL (1.20-3.40); Lymphocytes % (auto) 6.8 %; Mean Corpuscular Hemoglobin 30.2 pg (25.0-34.0); Mean Corpuscular Hgb Conc 32.9 g/dL (32.0-36.0); Mean Corpuscular Volume 91.8 fL (80.0-100.0); Mean Platelet Volume 9.1 fL (9.4-12.4); Monocytes # (auto) 0.54 K/uL (0.11-0.59); Monocytes % (auto) 4.3 %; Neutrophils # (auto) 11.09 K/uL (1.40-6.50); Neutrophils % (auto) 88.3 %; Platelet Count 271 K/uL (130-400); RDW Coefficient of Variation 12.9 % (11.5-14.5); RDW Standard Deviation 42.1 fL (36.4-46.3); Red Blood Count 4.51 M/uL (4.70-6.10); White Blood Count 12.55 K/ul (4.8-10.8)
[2024-07-22 06:14] LABS: BUN Creatinine Ratio 13.2 (10-20); Calcium 9.9 mg/dl (8.6-10.3); Creatinine Clr Calc Pharmacy 92.5 ml/min; Est GFR (African American) 95.4 ml/min; Est GFR (Non-African American) 82.3 ml/min; Potassium 4.4 mmol/L (3.5-5.1)
--- NOTE | 2024-07-22 06:50 | Electrocardiogram Report ---
Test Reason : Blood Pressure : */* mmHG Vent. Rate : 90 BPM Atrial Rate : 90 BPM P-R Int : 134 ms QRS Dur : 100 ms QT Int : 386 ms P-R-T Axes : 84 81 74 degrees QTcB Int : 472 ms Sinus rhythm with marked sinus arrhythmia Possible Left atrial enlargement Incomplete right bundle branch block Septal infarct , age undetermined Abnormal ECG No previous ECGs available Confirmed by Israel Balderas ([id number]) on 07/22/2024 6:49:27 AM Referred By: Confirmed By: Israel Balderas
--- NOTE | 2024-07-22 15:36 | Discharge Summary ---
Date of Service July 22, 2024 Admission HPI Per Admitting Provider 34-year-old male past med significant for HIV, asthma comes because of shortness of breath. Patient states he woke up with shortness of breath. Having cough bringing some phlegm. Having headaches. Having nausea. Denies any fevers. No blurred visions. No runny nose or sore throat. No chest pain. No abdominal pain. Normal bowel and bladder movements. Hemodynamics are okay. Past medical history. As mentioned above Past surgical history. Denies any surgeries. Social social history. States last smoking was 3 to 4 months ago. Prior to that smoked 2 cigarettes daily. Alcohol occasional. Smokes marijuana 3 to 4 months ago. Denies any IV drug abuse. Family history. Denies any family history. Admission Exam Per Admitting Provider General- Not in acute distress Head- atraumatic Eyes- PERRL. ENT- oropharynx clear Neck- supple, no JVD. Lungs- clear to auscultation mil b/l wheezing, no crackles Heart- regular rate and rhythm; no murmur, no gallop. Abdomen- normal bowel sounds, soft, nontender, no distension Extremities- no pretibial edema, no erythema seen. Neuro- alert, oriented PERRL, no facial palsy; no dysarthria; moves extremities. Principal Diagnosis Asthma exacerbation Discharge Exam Constitutional: WD/WN, vitals as above, NAD, sitting up in bed, pleasant, conversing easily Respiratory: normal respiratory effort, lungs clear to auscultation, no wheeze, rales, rhonchi. Normal insp/exp effort, no accessory muscle use Cardiovascular: RRR, no murmur, no edema Vessels: no JVD or carotid bruit Chest: normal inspection of chest Abdomen: normal bowel sounds, soft, nontender, no hepatosplenomegaly Musculoskeletal: no cyanosis or clubbing, extremities motor strength 5/5 Skin: no rashes, warm and dry normal turgor Neurologic: PERRL, EOMI, accommodation nl, no face palsy, no dysarthria CN's II- XI intact bilaterally and moves all extremities Psychiatric: A+Ox3, euthymic affect Discharge Data Allergies Allergy/AdvReac Type Severity Reaction Status Date / Time diphenhydramine AdvReac Severe Difficulty Verified 07/21/24 07:46 Breathing Consultations 07/21/24 05:53 ED Decision to Admit Stat Ordered Studies 07/21/24 04:39 CT head/brain wo con Stat Hospital Course (1) Asthma exacerbation: 34-year-old male past med significant for asthma-COPD overlap comes because of shortness of breath. Lung examination revealed bilateral wheezes consistent with asthma exacerbation Chest x-ray did not reveal any infiltrate Respiratory viral panel was negative Patient was started on tohym-yej-xuzix DuoNebs, IV steroids and supplemental oxygen Patient reported improvement in the symptoms throughout the hospitalization and was saturating well on room air. Patient was provided prescription for nebulizer machine and DuoNebs. He was discharged on a course of oral steroid and doxycycline Patient to follow-up with his PCP and pulmonology. Please note the above document was generated using voice recognition software. It may contain grammatical, syntax or spelling errors. Any formal questions or concerns about the content, text or information contained within the body of this dictation should be directly addressed to the provider for clarification Total Time Total Time Spent Total Time Spent (In Minutes): 45 Total Time Includes: Examination of the Patient, Discharge Planning, Medication Reconciliation, Communication With Other Providers and Other Discharge Plan Discharge Items Patient Disposition: Home - Self-Care Reason For Visit: ASTHMA EXACERBATION Discharge Diagnosis: Asthma exacerbation Activity: Resume your previous activity Non-emergency contact: Primary Care Provider Call non-emergency contact if: you have any medication questions and your symptoms worsen Follow-up/Referrals: PCP,NO [Primary Care Provider] - Diet: Regular Addtl Attending Provider Instructions: You were admitted to the hospital due to asthma exacerbation. You are prescribed following medication Take prednisone 40 mg once a day for 4 days Take doxycycline 100 mg twice a day for 3 days You are prescribed nebulizer as well as nebulizer solution. Please use it as needed for shortness of breath. Please follow-up with your director athletic as scheduled. Pending Studies at Discharge: No Stand-Alone Forms: My [facility], Smoking Cessation Medications and DC Order Prescriptions: New doxycycline hyclate 100 mg Capsule 100 mg PO BID 3 Days Qty: 6 0RF ipratropium-albuterol 0.5 mg-3 mg(2.5 mg base)/3 mL Solution For Nebulization 3 ml NEB QIDR PRN (Reason: shortness of breath) Qty: 90 0RF prednisone 20 mg tablet 40 mg PO DAILY 4 Days Qty: 8 0RF Continued albuterol sulfate [Ventolin HFA] 90 mcg/actuation HFA aerosol inhaler 2 inh inhalation Q4H PRN (Reason: shortness of breath or wheezing) Qty: 8.5 3RF Trelegy Ellipta 100-62.5-25 mcg blister with device 1 inh inhalation DAILY Qty: 60 2RF Discharge Orders: Discharge Order (Routine); Ordered 07/22/24 Ordered By: Candido Duarte Admission Data Admit Date/Time: 07/21/24 06:49 Attending Provider: Candido Duarte Admit Provider: Candido Duarte Primary Care Provider: PCP,NO Other Providers: Scooter Quiroz
--- NOTE | 2024-07-22 16:45 | Hospitalist Progress Note ---
Date of Service July 22, 2024 Assessment & Plan (1) Asthma exacerbation: Plan: 34-year-old male past med significant for HIV, asthma Presented to the hospital with altered mental status and apneic episode. Acute hypercapnic respiratory failure Possible Asthma exacerbation Patient presents to the hospital with acute onset of shortness of breath. He was treated for asthma exacerbation with wjlwe-ozu-fhmkm DuoNeb, IV steroid. He was being planned to be discharged home on 07/22; he again had repeated episode of shortness of breath(unable to inspire) ABG on admission also showed significant CO2 retention with pH of 7.20. Will obtain pulmonology evaluation for given patient's repeated episode of acute onset of shortness of breath/ hypercapnic episode. Continue on yeqsr-jop-vqfhi DuoNeb and IV Solu-Medrol for the time being Supplemental oxygen as needed Altered mental status Likely due to CO2 retention CT head - no acute findings no episodes of ams inpatient History of HIV Continue home medications DVT prophylaxis Lovenox Disposition Telemetry Full code. Please note the above document was generated using voice recognition software. It may contain grammatical, syntax or spelling errors. Any formal questions or concerns about the content, text or information contained within the body of this dictation should be directly addressed to the provider for clarification Admission and Anticipated Discharge Date Admission Date: July 21, 2024 Subjective Patient reported feeling much better in the morning; he was saturating well on room air; not in any distress. He was being planned for discharge later in the evening. However, he had acute onset of shortness of breath. He reported that he was not able to breathe in. Vital signs were stable and he was saturating well on room air. Patient also reported similar symptoms previously as well on his presentation. Review of Systems Review of Systems: All systems reviewed & are unremarkable except as noted in Subjective Physical Exam Physical Exam: Constitutional: WD/WN, vitals as above, NAD, sitting up in bed, pleasant, conversing easily Respiratory: Bilateral decreased air entry No wheeze. Cardiovascular: RRR, no murmur, no edema Vessels: no JVD or carotid bruit Chest: normal inspection of chest Abdomen: normal bowel sounds, soft, nontender, no hepatosplenomegaly Musculoskeletal: no cyanosis or clubbing, extremities motor strength 5/5 Skin: no rashes, warm and dry normal turgor Neurologic: PERRL, EOMI, accommodation nl, no face palsy, no dysarthria CN's II- XI intact bilaterally and moves all extremities Psychiatric: A+Ox3, euthymic affect Results & Data Results & Data Vital Signs (Past 12 Hours) Vital Signs Temp Pulse Pulse Pulse Resp Resp Resp 07/22/24 16:07 104 H 18 07/22/24 14:37 36.8 C 90 07/22/24 10:50 90 07/22/24 10:45 95 H 90 18 07/22/24 10:38 36.9 C 87 17 07/22/24 10:04 07/22/24 07:42 90 07/22/24 07:26 36.6 C 67 17 BP Pulse Ox Pulse Ox Pulse Ox O2 Del Method O2 Del Method O2 Flow Rate 07/22/24 16:07 97 Room Air 07/22/24 14:37 132/74 92 Room Air 07/22/24 10:50 94 Room Air 07/22/24 10:45 94 92 07/22/24 10:38 147/84 H 92 Room Air 07/22/24 10:04 Room Air 07/22/24 07:42 96 Nasal Cannula 2 07/22/24 07:26 112/66 97 Nasal Cannula
[2024-07-22 17:07] LABS: Allen Test Pos (Pos); Base Excess ABG 1.4 mEq/L (-9-1.8); HCO3 ABG 25 mmol/L (19-24); Oxygen Saturation ABG 93.4 % (90-95); PCO2 ABG 35 mmHg (35-46); PO2 ABG 61 mmHg (80-95); pH ABG 7.46 (7.35-7.45)
[2024-07-23 07:55] LABS: Basophils # (auto) 0.02 K/uL (0.00-0.20); Basophils % (auto) 0.1 %; Hematocrit (blood only) 40.5 % (42.0-52.0); Hemoglobin 13.8 g/dl (14.0-18.0); Immature Granulocytes # (auto) 0.08 K/uL (0.01-0.20); Immature Granulocytes % (auto) 0.5 %; Lymphocytes # (auto) 0.97 K/uL (1.20-3.40); Lymphocytes % (auto) 5.9 %; Mean Corpuscular Hemoglobin 30.6 pg (25.0-34.0); Mean Corpuscular Hgb Conc 34.1 g/dL (32.0-36.0); Mean Corpuscular Volume 89.8 fL (80.0-100.0); Mean Platelet Volume 9.3 fL (9.4-12.4); Monocytes # (auto) 0.97 K/uL (0.11-0.59); Monocytes % (auto) 5.9 %; Neutrophils # (auto) 14.35 K/uL (1.40-6.50); Neutrophils % (auto) 87.6 %; Platelet Count 298 K/uL (130-400); RDW Standard Deviation 42.5 fL (36.4-46.3); Red Blood Count 4.51 M/uL (4.70-6.10); White Blood Count 16.39 K/ul (4.8-10.8)
[2024-07-23 08:09] LABS: Calcium 9.5 mg/dl (8.6-10.3); Creatinine Clr Calc Pharmacy 100.4 ml/min; Est GFR (African American) 105.3 ml/min; Est GFR (Non-African American) 90.9 ml/min
--- NOTE | 2024-07-23 09:28 | Pulmonary Consultation ---
Date of Consultation July 23, 2024 Assessment & Plan (1) Asthma exacerbation: Plan Impression: 34-year-old male with severe airflow obstruction and history of HIV with some basilar bronchiectasis admitted with exacerbation. His episode last evening was likely secondary to his inhalers not being continued. His episode last evening of severe hypercarbia likely reflects his severe airflow obstruction but appears to have resolved. No indication for noninvasive positive pressure ventilation currently. Recommendation: 1. Asthma: Will restart the patient's outpatient regiment. Trelegy is not available as an inpatient so we will place him on high dose of Breo as well as Incruse. Continue DuoNebs. Restart his Singulair. Discontinue Solu-Medrol and replace with prednisone 40 mg a day with plan for 5-day burst. 2. Bronchiectasis: Likely secondary to HIV. No indication for bronchoscopy or additional evaluation currently. His outpatient pulmonary workup has been initiated. 3. Hypercarbia: Severe finding in patient with asthmatic bronchitis. Patient is at risk for life-threatening asthma and may not have an appropriate recognition of symptoms. Recommend initiation of peak flow monitoring. Will have RT get the patient a peak flow monitor and try and assess his levels as therapy may need to be dictated by peak flows rather than patient's symptoms. Thanks for the opportunity participating in the care of this patient. Feel free to contact us with questions or concerns History of Present Illness Attending Physician: Adolfo Khalil MD History of Present Illness Asked by hospitalist to assist in evaluation management of this patient with severe asthma. History is obtained from discussion with patient as well as review the electronic medical record. Patient is a 34-year-old male with a history of HIV and severe airflow obstruction. He was just seen less than a month ago by one of my colleagues, Dr. Gomez. PFTs at that time showed severe airflow obstruction. His outpatient regiment was Wixela and albuterol which she was using about every 4 hours. He was escalated to Trelegy which she states was beneficial. He has not vaped or smoked anything in over 3 months. He has no significant occupational or environmental exposures. He presented to the emergency room 07/21/2024 with complaints of shortness of breath and was treated with steroids. For reasons that are not entirely clear, his inhaler regiment was not continued. He was going to be discharged the next day but then developed an episode of altered m ental status with difficulty breathing. He was found to be significantly hypercarbic. Additional steroids were administered and discharge was canceled. Pulmonary was consulted for additional evaluation and management. This morning the patient is awake alert and conversant. He is been up to the restroom. He is eating. He is on room air. He states his breathing feels fine but he typically has more issues in the afternoon. He denies any eczema. No skin rashes or lesions. He denies significant postnasal drip. No reflux. No aspiration events. Allergies Allergy/AdvReac Type Severity Reaction Status Date / Time diphenhydramine AdvReac Severe Difficulty Verified 07/21/24 07:46 Breathing Home Medications Medication Instructions Recorded Confirmed Type albuterol sulfate 90 mcg/actuation 2 inh inhalation Q4H PRN shortness 06/17/24 07/21/24 Rx aerosol inhaler (Ventolin HFA) of breath or wheezing #8.5 grams doxycycline hyclate 100 mg capsule 100 mg PO BID 3 days #6 caps 07/22/24 Rx fluticasone fur. 100 mcg-umeclid 1 inh inhalation DAILY #60 ea 07/22/24 Rx 62.5 mcg-vilant 25 mcg inhalat.powder (Trelegy Ellipta) ipratropium 0.5 mg-albuterol 3 mg 3 ml NEB QIDR PRN shortness of 07/22/24 Rx (2.5 mg base)/3 mL nebulization breath #90 mL soln prednisone 20 mg tablet 40 mg (2 x 20 mg) PO DAILY 4 days 07/22/24 Rx #8 tabs Patient History Medical History Acute respiratory failure with hypoxia and hypercapnia Asthma exacerbation Respiratory failure with hypoxia Hypoxia Surgical History No pertinent past surgical history Family History Other Family history non-contributory Social History (System 07/21/24 @ 07:46 by Bridgette Montoya) Smoking Status: Former smoker Tobacco Type: Cigarettes Age Started Using Tobacco: 14; Age Quit Using Tobacco: 31; packs per day: 1; Second Hand Exposure: No; Hx Alcohol Use: No Hx Substance Use: No Preferred Language: Azerbaijani Communication Ability: Effective Community Midwife Required: No Beliefs That Will Affect Care: None Current Living Situation: Family Current Living Situation Comment: With sister Feels Safe at Home: Yes Safety Concerns: Feels Safe At This Time Assistive Devices: None Review of Systems Review of Systems: All systems reviewed & are unremarkable except as noted in Subjective Physical Exam Constitutional: WD/WN, vitals as above Neck: trachea midline, no thyromegaly Respiratory: normal respiratory effort, lungs clear to auscultation Cardiovascular: RRR, no murmur, no edema Gastrointestinal (Abdomen): normal bowel sounds, soft, nontender, no hepatosplenomegaly Musculoskeletal: Extremities: extremities normal to inspection Skin: no rashes, warm and dry Neurologic: Nonfocal exam Lymphatic: no cervical lymphadenopathy Results & Data Results & Data Vital Signs (Past 12 Hours) Vital Signs Temp Pulse Pulse Pulse Resp BP BP 07/23/24 07:53 36.5 C 80 18 128/70 07/23/24 07:24 71 16 07/23/24 03:07 36.6 C 88 17 131/76 07/22/24 23:16 36.7 C 68 14 132/72 07/22/24 21:49 89 Pulse Ox O2 Del Method O2 Flow Rate 07/23/24 07:53 90 Room Air 07/23/24 07:24 91 Room Air 07/23/24 03:07 94 Room Air 07/22/24 23:16 96 Nasal Cannula 2 07/22/24 21:49 Critical Care Results & Data Vital Signs (Past 12 Hours) Vital Signs Temp Pulse Pulse Pulse Resp BP BP 07/23/24 07:53 36.5 C 80 18 128/70 07/23/24 07:24 71 16 07/23/24 03:07 36.6 C 88 17 131/76 07/22/24 23:16 36.7 C 68 14 132/72 07/22/24 21:49 89 Pulse Ox O2 Del Method O2 Flow Rate 07/23/24 07:53 90 Room Air 07/23/24 07:24 91 Room Air 07/23/24 03:07 94 Room Air 07/22/24 23:16 96 Nasal Cannula 2 07/22/24 21:49 Lab & Micro Results (Past 24 Hours) RBC 4.51 M/uL (4.70-6.10) L 07/23/24 WBC 16.39 K/ul (4.8-10.8) H 07/23/24 Hgb 13.8 g/dl (14.0-18.0) L 07/23/24 Hct 40.5 % (42.0-52.0) L 07/23/24 MCV 89.8 fL (80.0-100.0) 07/23/24 MCH 30.6 pg (25.0-34.0) 07/23/24 MCHC 34.1 g/dL (32.0-36.0) 07/23/24 RDW Standard Deviation 42.5 fL (36.4-46.3) 07/23/24 RDW Coefficient of Variation 13.0 % (11.5-14.5) 07/23/24 Plt Count 298 K/uL (130-400) 07/23/24 MPV 9.3 fL (9.4-12.4) L 07/23/24 Neutrophils (%) (Auto) 87.6 % 07/23/24 Lymphocytes (%) (Auto) 5.9 % 07/23/24 Monocytes # (Auto) 0.97 K/uL (0.11-0.59) H 07/23/24 Eosinophils # (Auto) 0.00 K/uL (0.00-0.50) 07/23/24 Immature Granulocyte % (Auto) 0.5 % 07/23/24 Neutrophils # (Auto) 14.35 K/uL (1.40-6.50) H 07/23/24 Lymphocytes # (Auto) 0.97 K/uL (1.20-3.40) L 07/23/24 Monocytes # (Auto) 0.97 K/uL (0.11-0.59) H 07/23/24 Eosinophils # (Auto) 0.00 K/uL (0.00-0.50) 07/23/24 Basophils # (Auto) 0.02 K/uL (0.00-0.20) 07/23/24 Immature Granulocyte # (Auto) 0.08 K/uL (0.01-0.20) 4 Na 141 mmol/L (136-145) 07/23/24 K 4.0 mmol/L (3.5-5.1) 07/23/24 Cl 107 mmol/L (98-107) 07/23/24 CO2 26 mmol/L (21-32) 07/23/24 Anion Gap 8 (3-11) 07/23/24 BUN 22 mg/dl (6-23) 07/23/24 Creatinine 1.05 mg/dl (0.6-1.4) 07/23/24 Estimated GFR ( Amer) 105.3 ml/min 07/23/24 Estimated GFR (Non-Af Amer) 90.9 ml/min 07/23/24 BUN/Creatinine Ratio 21.0 (10-20) H 07/23/24 Glu 98 mg/dl (70-99(Fasting)) 07/23/24 Ca 9.5 mg/dl (8.6-10.3) 07/23/24 Calcium Level 9.5 mg/dl (8.6-10.3) 07/23/24 07:29 Arterial Blood pH 7.46 (7.35-7.45) H 07/22/24 16:50 Arterial Blood Partial Pressure CO2 35 mmHg (35-46) 07/22/24 16 :50 Arterial Blood Partial Pressure O2 61 mmHg (80-95) L 07/22/24 1 6:50 Arterial Blood HCO3 25 mmol/L (19-24) H 07/22/24 16:50 Arterial Blood Base Excess 1.4 mEq/L (-9-1.8) 07/22/24 16:50 Arterial Blood Oxygen Saturation 93.4 % (90-95) 07/22/24 16:50 Blood Gas Oxygen Given ROOM AIR 07/22/24 16:50 Daniel Test Pos (Pos) 07/22/24 16:50 I & O Totals 24 Hours 07/22/24 07/23/24 07/24/24 06:59 06:59 06:59 Intake Total 500 / 500 820 / 820 Output Total Balance 499 / 499 820 / 820 Cumulative 07/21/24 04:24 thru 07/23/24 06:00 Intake Total 1320 Output Total 1 Balance 1319 RT Ventilator Mngmt (Last Documented) Ventilator Ordered Settings Respiratory Rate [Exercise 18 07/22/24 10:45 Room Air] Respiratory Rate [Resting] 16 07/22/24 10:45 Respiratory Rate 18 07/23/24 07:53 Ventilator - PT Measurements Respiratory Rate [Exercise 18 Room Air] Respiratory Rate [Resting] 16 Respiratory Rate 18 PG Care Time/CCT Total # of Minutes Spent Total Time Spent with Patient: Total time spent is greater than 50% in coordination of care (as documented) at patient's floor/unit and/or counseling patient: Coding Level of Care Code 66263 IN/OBS CONSULT LVL 4,60M Diagnoses Asthma exacerbation J45.901
[2024-07-23] MEDS: MONTELUKAST SODIUM 10 MG TABLET PO SCH (11:09)
[2024-07-23] MEDS: FLUTICASONE/VILANTEROL 200/25MCG 14 PUFFS/INHALER INH SCH (11:09)
[2024-07-23] MEDS: predniSONE 20 MG TAB PO SCH (11:09)
[2024-07-23] MEDS: UMECLIDINIUM BROMIDE 62.5MCG/BLISTER 7 PUFFS/INHALER INH SCH (11:10)
--- NOTE | 2024-07-23 17:55 | Hospitalist Progress Note ---
Date of Service July 23, 2024 Assessment & Plan (1) Asthma exacerbation: Plan: 34-year-old male past med significant for HIV, asthma Presented to the hospital with altered mental status and apneic episode. Acute hypercapnic respiratory failure Possible Asthma exacerbation Patient presents to the hospital with acute onset of shortness of breath. He was treated for asthma exacerbation with [id number] DuoNeb, IV steroid. He was being planned to be discharged home on 07/22; he again had repeated episode of shortness of breath(unable to inspire) ABG on admission also showed significant CO2 retention with pH of 7.20. Will obtain pulmonology evaluation for given patient's repeated episode of acute onset of shortness of breath/ hypercapnic episode. Continue on [id number] DuoNeb and IV Solu-Medrol for the time being Supplemental oxygen as needed Altered mental status Likely due to CO2 retention CT head - no acute findings no episodes of ams inpatient History of HIV Continue home medications DVT prophylaxis Lovenox Disposition Telemetry Full code. Please note the above document was generated using voice recognition software. It may contain grammatical, syntax or spelling errors. Any formal questions or concerns about the content, text or information contained within the body of this dictation should be directly addressed to the provider for clarification Plan 34-year-old male past med significant for HIV, asthma Presented to the hospital with altered mental status and apneic episode. Acute hypercapnic respiratory failure Acute Asthma exacerbation Bronchiectasis--likely due to HIV Hypercarbia likely due to asthmatic bronchitis --CXR: No acute cardiopulmonary findings. --ABG on admission also showed significant CO2 retention with pH of 7.20. -- BioFire negative --IV Solu-Medrol transition to prednisone Continue inhalers per pulmonology Appreciate pulmonology input Saturating well on room air Empirically also on doxycycline Plan to complete 5-day course of prednisone No indication for bronchoscopy for now per pulmonology Monitor peak flow Nebs PRN Acute metabolic encephalopathy--POA Likely due to CO2 retention --CT head:Normal head/brain CT. Mental status seem to be back to baseline Monitor History of HIV Continue home medications DVT Px: Lovenox SQ Code Status Full code Admission and Anticipated Discharge Date Admission Date: July 21, 2024 Subjective Patient is seen and examined at bedside States feeling better today Admits to have minimal cough with expectoration Dyspnea much better today Denies any chest pain, nausea, vomiting, abdominal pain No other complaints Review of Systems Review of Systems: All systems reviewed & are unremarkable except as noted in Subjective Physical Exam Physical Exam: Physical Exam: Vitals signs as noted above General Appearance:Moderately built and nourished, no apparent distress Head: normocephalic, Atraumatic Eyes: normal inspection, EOMI Neck: supple, Trachea midline Respiratory/Chest: Decreased breath sounds, CTA, No accessory muscle use Cardiovascular: S1, S2, No murmur Abdomen/GI:Soft, Non tender, Bowel sounds present Extremities/Musculoskeletal:normal inspection, no edema Neurologic/Psych:AAOX3, grossly no focal neurological deficits Skin: normal color, warm Results & Data Results & Data Vital Signs (Past 12 Hours) Vital Signs Temp Pulse Resp BP Pulse Ox Pulse Ox O2 Del Method 07/23/24 15:43 83 16 93 Room Air 07/23/24 14:56 36.9 C 96 H 20 122/77 91 Room Air 07/23/24 12:11 36.6 C 80 16 153/78 H 98 Room Air 07/23/24 10:18 78 16 92 Room Air 07/23/24 10:00 91 07/23/24 08:03 Room Air 07/23/24 07:53 36.5 C 80 18 128/70 90 Room Air 07/23/24 07:24 71 16 91 Room Air O2 Del Method 07/23/24 15:43 07/23/24 14:56 07/23/24 12:11 07/23/24 10:18 07/23/24 10:00 Room Air 07/23/24 08:03 07/23/24 07:53 07/23/24 07:24 Laboratory Results Short CBC 07/23/24 Range/Units 07:29 WBC 16.39 H (4.8-10.8) K/ul Hgb 13.8 L (14.0-18.0) g/dl Hct 40.5 L (42.0-52.0) % Plt Count 298 (130-400) K/uL BMP 07/23/24 07:29 Sodium 141 Potassium 4.0 Chloride 107 Carbon Dioxide 26 BUN 22 Creatinine 1.05 Glucose 98 Calcium 9.5
[2024-07-24 06:18] LABS: Hematocrit (blood only) 40.6 % (42.0-52.0); Hemoglobin 13.3 g/dl (14.0-18.0); Mean Corpuscular Hemoglobin 29.9 pg (25.0-34.0); Mean Corpuscular Hgb Conc 32.8 g/dL (32.0-36.0); Mean Corpuscular Volume 91.2 fL (80.0-100.0); Mean Platelet Volume 9.1 fL (9.4-12.4); Platelet Count 263 K/uL (130-400); RDW Coefficient of Variation 13.1 % (11.5-14.5); RDW Standard Deviation 42.2 fL (36.4-46.3); Red Blood Count 4.45 M/uL (4.70-6.10); White Blood Count 12.99 K/ul (4.8-10.8)
[2024-07-24 06:33] LABS: BUN Creatinine Ratio 17.2 (10-20); Calcium 8.9 mg/dl (8.6-10.3); Creatinine Clr Calc Pharmacy 90.9 ml/min; Est GFR (African American) 93.4 ml/min; Est GFR (Non-African American) 80.6 ml/min; Potassium 3.4 mmol/L (3.5-5.1)
[2024-07-24 07:13] VITALS: RESP 18
--- NOTE | 2024-07-24 08:04 | Pulmonology Progress Note ---
Date of Service July 24, 2024 Assessment & Plan (1) Asthma exacerbation: Plan Impression: 34-year-old male with severe airflow obstruction and history of HIV with some basilar bronchiectasis admitted with exacerbation. He is doing much better clinically Recommendation: 1. Asthma: Continue Breo as well as Incruse while in the hospital. Can transition back to Trelegy in the outpatient setting. Continue DuoNebs. Continue his Singulair. prednisone 40 mg a day with plan for 5-day burst. 2. Bronchiectasis: Likely secondary to HIV. No indication for bronchoscopy or additional evaluation currently. His outpatient pulmonary workup has been initiated. 3. Hypercarbia: Severe finding in patient with asthmatic bronchitis. Patient is at risk for life-threatening asthma and may not have an appropriate recognition of symptoms. Patient was instructed to monitor his peak flows twice a day and bring them back to his pulmonary appointment for follow-up to determine an action plan. Decrements in his peak flow may be detected prior to the patient having life-threatening symptoms and may offer an opportunity to intervene as far as escalation of his medical regiment. The patient expressed understanding and is in agreement with the plan as outlined Thanks for the opportunity participating in the care of this patient. Patient can be dismissed from the hospital and follow-up in the outpatient setting with Dr. Gomez. Feel free to contact us with questions or concerns Admission and Anticipated Discharge Date Admission Date: July 21, 2024 Subjective Patient seen and examined. EMR reviewed. The patient reports he is doing well clinically. He is not had any recurrent issues. He is back on his inhalers. He is not coughing or wheezing. He slept reasonably well. He did receive his peak flow meter. He reportedly has 1 at home but is not monitor his peak flows on a regular basis Review of Systems 2 Review of Systems: All systems reviewed & are unremarkable except as noted in Subjective Physical Exam 2 Constitutional: WD/WN, vitals as above Neck: trachea midline, no thyromegaly Respiratory: normal respiratory effort, lungs clear to auscultation Cardiovascular: RRR, no murmur, no edema Gastrointestinal (Abdomen): normal bowel sounds, soft, nontender, no hepatosplenomegaly Musculoskeletal: Extremities: extremities normal to inspection Skin: no rashes, warm and dry Lymphatic: no cervical lymphadenopathy Results & Data Results & Data Vital Signs (Past 12 Hours) Vital Signs Temp Pulse Pulse Resp BP Pulse Ox O2 Del Method 07/24/24 07:12 58 L 18 98 Room Air 07/24/24 03:18 36.6 C 82 14 120/78 96 Room Air 07/23/24 23:38 87 07/23/24 23:25 36.7 C 69 14 128/77 96 Room Air 07/23/24 21:10 Room Air 07/23/24 20:30 73 18 93 Room Air Laboratory Results 07/24/24 05:54 07/24/24 05:54 PG Care Time/CCT Total # of Minutes Spent Total Time Spent with Patient: Total time spent is greater than 50% in coordination of care (as documented) at patient's floor/unit and/or counseling patient: Coding Level of Care Code 10710 SUB INP/OBS CARE 2/35MIN Diagnoses Asthma exacerbation J45.901
[2024-07-24] MEDS: POTASSIUM CHLORIDE CRTAB 20 MEQ TABCR PO ONE (10:24)
[2024-07-24] MEDS ORDERED: ALBUTEROL 0.083% NEBU SOLN 3 ML VIAL NEB PRN (12:00)
--- NOTE | 2024-07-24 12:06 | Hospitalist Progress Note ---
Date of Service July 24, 2024 Assessment & Plan (1) Asthma exacerbation: Plan 34-year-old male past med significant for HIV, asthma Presented to the hospital with altered mental status and apneic episode. Acute hypercapnic respiratory failure Acute Asthma exacerbation Bronchiectasis--likely due to HIV Hypercarbia likely due to asthmatic bronchitis --CXR: No acute cardiopulmonary findings. --ABG on admission also showed significant CO2 retention with pH of 7.20. -- BioFire negative --IV Solu-Medrol transition to prednisone--plan to complete 5-day course Continue inhalers per pulmonology Appreciate pulmonology input Saturating well on room air Empirically also on doxycycline No indication for bronchoscopy for now per pulmonology Monitor peak flow Nebs PRN Plan to discharge home today Advised to follow-up with pulmonology on discharge Acute metabolic encephalopathy--POA Likely due to CO2 retention --CT head:Normal head/brain CT. Mental status back to baseline Monitor History of HIV Continue home medications DVT Px: Lovenox SQ Code Status Full code Disposition Home Admission and Anticipated Discharge Date Admission Date: July 21, 2024 Subjective Patient is seen and examined at bedside States feeling a lot better today Denies any significant dyspnea Cough slowly improving as well No new complaints Denies any chest pain, nausea, vomiting, abdominal pain Saturating well on room air Plan to be discharged home today Review of Systems Review of Systems: All systems reviewed & are unremarkable except as noted in Subjective Physical Exam Physical Exam: Physical Exam: Vitals signs as noted above General Appearance:Moderately built and nourished, no apparent distress Head: normocephalic, Atraumatic Eyes: normal inspection, EOMI Neck: supple, Trachea midline Respiratory/Chest: Decreased breath sounds, CTA, No accessory muscle use Cardiovascular: S1, S2, No murmur Abdomen/GI:Soft, Non tender, Bowel sounds present Extremities/Musculoskeletal:normal inspection, no edema Neurologic/Psych:AAOX3, grossly no focal neurological deficits Skin: normal color, warm Results & Data Results & Data Vital Signs (Past 12 Hours) Vital Signs Temp Pulse Resp BP Pulse Ox O2 Del Method 07/24/24 11:13 80 18 97 Room Air 07/24/24 07:12 58 L 18 98 Room Air 07/24/24 03:18 36.6 C 82 14 120/78 96 Room Air Laboratory Results Short CBC 07/24/24 Range/Units 05:54 WBC 12.99 H (4.8-10.8) K/ul Hgb 13.3 L (14.0-18.0) g/dl Hct 40.6 L (42.0-52.0) % Plt Count 263 (130-400) K/uL [facility] 07/24/24 05:54 Sodium 141 Potassium 3.4 L Chloride 107 Carbon Dioxide 27 BUN 20 Creatinine 1.16 Glucose 78 Calcium 8.9
--- NOTE | 2024-07-24 12:11 | Discharge Summary ---
Date of Service July 24, 2024 Admission HPI Per Admitting Provider 34-year-old male past med significant for HIV, asthma comes because of shortness of breath. Patient states he woke up with shortness of breath. Having cough bringing some phlegm. Having headaches. Having nausea. Denies any fevers. No blurred visions. No runny nose or sore throat. No chest pain. No abdominal pain. Normal bowel and bladder movements. Hemodynamics are okay. Past medical history. As mentioned above Past surgical history. Denies any surgeries. Social social history. States last smoking was 3 to 4 months ago. Prior to that smoked 2 cigarettes daily. Alcohol occasional. Smokes marijuana 3 to 4 months ago. Denies any IV drug abuse. Family history. Denies any family history. Admission Exam Per Admitting Provider General- Not in acute distress Head- atraumatic Eyes- PERRL. ENT- oropharynx clear Neck- supple, no JVD. Lungs- clear to auscultation mil b/l wheezing, no crackles Heart- regular rate and rhythm; no murmur, no gallop. Abdomen- normal bowel sounds, soft, nontender, no distension Extremities- no pretibial edema, no erythema seen. Neuro- alert, oriented PERRL, no facial palsy; no dysarthria; moves extremities. Principal Diagnosis Acute hypercapnic respiratory failure Acute Asthma exacerbation Discharge Data Allergies Allergy/AdvReac Type Severity Reaction Status Date / Time diphenhydramine AdvReac Severe Difficulty Verified 07/21/24 07:46 Breathing Consultations 07/21/24 05:53 ED Decision to Admit Stat 07/23/24 08:00 Consult Pulmonology Routine Procedures Performed Laboratory Results WBC 12.99 K/ul (4.8-10.8) H 07/24/24 05:54 RBC 4.45 M/uL (4.70-6.10) L 07/24/24 05:54 Hgb 13.3 g/dl (14.0-18.0) L 07/24/24 05:54 POC Hgb 15.6 g/dl (14.0-18.0) 07/21/24 05:13 Hct 40.6 % (42.0-52.0) L 07/24/24 05:54 POC Hct 46 % (42-52) 07/21/24 05:13 MCV 91.2 fL (80.0-100.0) 07/24/24 05:54 MCH 29.9 pg (25.0-34.0) 07/24/24 05:54 MCHC 32.8 g/dL (32.0-36.0) 07/24/24 05:54 RDW Std Deviation 42.2 fL (36.4-46.3) 07/24/24 05:54 RDW Coeff of Mariann 13.1 % (11.5-14.5) 07/24/24 05:54 Plt Count 263 K/uL (130-400) 07/24/24 05:54 MPV 9.1 fL (9.4-12.4) L 07/24/24 05:54 Immature Gran % (Auto) 0.5 % 07/23/24 07:29 Neut % (Auto) 87.6 % 07/23/24 07:29 Lymph % (Auto) 5.9 % 07/23/24 07:29 [place] % (Auto) 5.9 % 07/23/24 07:29 Eos % (Auto) 0.0 % 07/23/24 07:29 Baso % (Auto) 0.1 % 07/23/24 07:29 Neut # (Auto) 14.35 K/uL (1.40-6.50) H 07/23/24 07:29 Lymph # (Auto) 0.97 K/uL (1.20-3.40) L 07/23/24 07:29 [place] # (Auto) 0.97 K/uL (0.11-0.59) H 07/23/24 07:29 Eos # (Auto) 0.00 K/uL (0.00-0.50) 07/23/24 07:29 Baso # (Auto) 0.02 K/uL (0.00-0.20) 07/23/24 07:29 Immature Gran # (Auto) 0.08 K/uL (0.01-0.20) 07/23/24 07:29 PT 11.4 Seconds (9.0-12.0) 07/21/24 04:46 INR 1.1 (0.9-1.1) 07/21/24 04:46 APTT 24 Seconds (21-31) 07/21/24 04:46 PTT Ratio 0.9 07/21/24 04:46 POC pH 7.20 (7.35-7.45) L 07/21/24 04:52 POC pCO2 74 mmHg (35-46) H 07/21/24 04:52 POC pO2 71 mmHg (80-95) L 07/21/24 04:52 POC HCO3 29 liam/L (19-24) H 07/21/24 04:52 POC Total CO2 31 mmol/L (24-31) 07/21/24 04:52 POC Base Excess 1.0 liam/L (-9-1.8) 07/21/24 04:52 ABG pH 7.46 (7.35-7.45) H 07/22/24 16:50 ABG pCO2 35 mmHg (35-46) 07/22/24 16:50 ABG pO2 61 mmHg (80-95) L 07/22/24 16:50 ABG HCO3 25 mmol/L (19-24) H 07/22/24 16:50 POC ABG O2 Sat 89.0 % (90-95) L 07/21/24 04:52 ABG O2 Saturation 93.4 % (90-95) 07/22/24 16:50 ABG Base Excess 1.4 mEq/L (-9-1.8) 07/22/24 16:50 Daniel Test Pos (Pos) 07/22/24 16:50 VBG pH 7.29 (7.36-7.41) L 07/21/24 10:20 VBG pCO2 45 mmHg (38-50) 07/21/24 10:20 VBG pO2 47 mmHg 07/21/24 10:20 VBG HCO3 22 mmol/L 07/21/24 10:20 VBG O2 Saturation 77.5 % 07/21/24 10:20 VBG Base Excess -5.0 mEq/L 07/21/24 10:20 Carboxyhemoglobin < 0.3 % THgb 07/21/24 05:00 Oxygen Given ROOM AIR 07/22/24 16:50 POC Sodium 145 mmol/L (135-144) H 07/21/24 05:13 Sodium 141 mmol/L (136-145) 07/24/24 05:54 POC Potassium 4.0 mmol/L (3.3-5.0) 07/21/24 05:13 Potassium 3.4 mmol/L (3.5-5.1) L 07/24/24 05:54 POC Chloride 102 mmol/L (101-112) 07/21/24 05:13 Chloride 107 mmol/L (98-107) 07/24/24 05:54 Carbon Dioxide 27 mmol/L (21-32) 07/24/24 05:54 POC Total CO2 33 mmol/L (24-31) H 07/21/24 05:13 Anion Gap 7 (3-11) 07/24/24 05:54 POC Anion Gap 14.0 mmol/L (16-25) L 07/21/24 05:13 POC BUN 10 mg/dl (7-18) 07/21/24 05:13 BUN 20 mg/dl (6-23) 07/24/24 05:54 Creatinine 1.16 mg/dl (0.6-1.4) 07/24/24 05:54 POC Creatinine 1.3 mg/dl (0.6-1.3) 07/21/24 05:13 Est Cr Clr Drug Dosing 90.9 ml/min 07/24/24 05:54 Est GFR ( Amer) 93.4 ml/min 07/24/24 05:54 Est GFR (Non-Af Amer) 80.6 ml/min 07/24/24 05:54 BUN/Creatinine Ratio 17.2 (10-20) 07/24/24 05:54 Glucose 78 mg/dl (70-99(Fasting)) 07/24/24 05:54 POC Glucose 158 mg/dl (70-99) H 07/21/24 04:43 POC Glucose (other) 146 mg/dl (70-99) H 07/21/24 05:13 Calcium 8.9 mg/dl (8.6-10.3) 07/24/24 05:54 POC Ioniz Calcium [place] 1.22 mmol/l (1.12-1.32) 07/21/24 05:13 Magnesium 2.0 mg/dl (1.7-2.4) 07/22/24 05:23 Total Bilirubin 0.3 mg/dl (0.2-1.0) 07/21/24 04:46 Direct Bilirubin 0.1 mg/dl (0-0.2) 07/21/24 04:46 AST 29 U/L (13-39) 07/21/24 04:46 ALT 18 U/L (7-52) 07/21/24 04:46 Alkaline Phosphatase 71 U/L (34-104) 07/21/24 04:46 Ammonia 52.0 umol/L (18-72) 07/21/24 04:46 Troponin I High Sens 3.8 pg/ml (0-20) 07/21/24 04:46 B-Natriuretic Peptide 13 pg/ml (0-100) 07/21/24 04:46 Total Protein 7.4 gm/dl (6.0-8.3) 07/21/24 04:46 Albumin 5.0 gm/dl (3.4-5.0) 07/21/24 04:46 Lipase 11 U/L (11-82) 07/21/24 04:46 Urine Color Yellow 07/21/24 05:28 Urine Appearance Clear (Clear) 07/21/24 05:28 Urine pH 6.0 (4.5-7.5) 07/21/24 05:28 Ur Specific [place] 1.024 (1.000-1.030) 07/21/24 05:28 Urine Protein 2+ (Negative) H 07/21/24 05:28 Urine Glucose (UA) Negative (Negative) 07/21/24 05:28 Urine Ketones Negative (Negative) 07/21/24 05:28 Urine Blood Trace (Negative) H 07/21/24 05:28 Urine Nitrite Negative (Negative) 07/21/24 05:28 Urine Bilirubin Negative (Negative) 07/21/24 05:28 Urine Urobilinogen Negative (Negative) 07/21/24 05:28 Ur Leukocyte Esterase Negative (Negative) 07/21/24 05:28 Urine WBC (Auto) 0-5 /hpf (0-5) 07/21/24 05:28 Urine RBC (Auto) 0-2 /hpf (0-2) 07/21/24 05:28 U Hyaline Cast (Auto) 3-5 /lpf (0-2) H 07/21/24 05:28 U Epithel Cells (Auto) 0-2 /hpf (0-2) 07/21/24 05:28 Urine Bacteria (Auto) None Seen (None Seen) 07/21/24 05:28 Urine Opiates Screen Neg (Neg) 07/21/24 05:28 Ur Methadone, Qual Neg (Neg) 07/21/24 05:28 Urine Fentanyl Screen Neg (Neg) 07/21/24 05:28 Urine Barbiturates Neg (Neg) 07/21/24 05:28 Ur Phencyclidine (PCP) Neg (Neg) 07/21/24 05:28 U Amphetamin/Meth Scrn Neg (Neg) 07/21/24 05:28 MDMA (Ecstasy) Screen Neg (Neg) 07/21/24 05:28 U Benzodiazepines Scrn Neg (Neg) 07/21/24 05:28 Ur Cocaine Metabolite Neg (Neg) 07/21/24 05:28 U Marijuana (THC) Screen Neg (Neg) 07/21/24 05:28 Ethyl Alcohol mg/dL < 10.0 mg/dl (<10.0) 07/21/24 04:46 Adenovirus (PCR) Not Detected (NotDetected) 07/21/24 04:46 B. pertussis DNA (PCR) Not Detected (NotDetected) 07/21/24 04:46 B.parapertussis DNA PCR Not Detected (NotDetected) 07/21/24 04:46 C. pneumoniae DNA (PCR) Not Detected (NotDetected) 07/21/24 04:46 Coronavirus OC43 (PCR) Not Detected (NotDetected) 07/21/24 04:46 Coronavirus HKU1 (PCR) Not Detected (NotDetected) 07/21/24 04:46 Coronavirus 229E (PCR) Not Detected (NotDetected) 07/21/24 04:46 SARS-CoV-2 (PCR) Not Detected (NotDetected) 07/21/24 04:46 Coronavirus NL63 (PCR) Not Detected (NotDetected) 07/21/24 04:46 Human Metapneumovir PCR Not Detected (NotDetected) 07/21/24 04:46 Influenza Type A (PCR) Not Detected (NotDetected) 07/21/24 04:46 Influenza Type B (PCR) Not Detected (NotDetected) 07/21/24 04:46 M. pneumoniae (PCR) Not Detected (NotDetected) 07/21/24 04:46 Parainfluenza 1 (PCR) Not Detected (NotDetected) 07/21/24 04:46 Parainfluenza 2 (PCR) Not Detected (NotDetected) 07/21/24 04:46 Parainfluenza 3 (PCR) Not Detected (NotDetected) 07/21/24 04:46 Parainfluenza 4 (PCR) Not Detected (NotDetected) 07/21/24 04:46 RSV (PCR) Not Detected (NotDetected) 07/21/24 04:46 Entero/Rhino (PCR) Not Detected (NotDetected) 07/21/24 04:46 Impressions Chest X-Ray 07/21/24 04:39 XR chest 1V portable CLINICAL HISTORY: Altered mental status. COMPARISON STUDY: No previous studies for comparison. FINDINGS: Lung volumes are normal. Lungs are clear. There is no pneumothorax or pleural effusion. Cardiac size is normal. Mediastinal contours are normal. There is no evidence for pulmonary edema. Mild thoracolumbar S-shaped scoliosis is incidentally noted. IMPRESSION: No acute cardiopulmonary findings. ACT 112: Negative or not required by law. Electronically signed by: Phong Webber M.D. 07/21/2024 6:[address] 07/21/24 04:39 Exam(s): CT HEAD Without Contrast EXAM: CT Head Without Intravenous Contrast CLINICAL HISTORY: Reason for exam: ams. TECHNIQUE: Axial computed tomography images of the head/brain without intravenous contrast. Automated exposure control was utilized for the study. A dose lowering technique was utilized adhering to the principles of ALARA. COMPARISON: No relevant prior studies available. FINDINGS: Brain: Unremarkable. No hemorrhage. No significant white matter disease. No edema. Ventricles: Unremarkable. No ventriculomegaly. Bones/joints: Unremarkable. No acute fracture. Soft tissues: Unremarkable. Sinuses: Unremarkable as visualized. No acute sinusitis. Mastoid air cells: Unremarkable as visualized. No mastoid effusion. IMPRESSION: Normal head/brain CT. Electronically signed by: Abel Hayes MD 07/21/24 05:44 AM Ordered Studies 07/21/24 04:39 CT head/brain wo con Stat Hospital Course (1) Asthma exacerbation: Plan 34-year-old male past med significant for HIV, asthma Presented to the hospital with altered mental status and apneic episode. Acute hypercapnic respiratory failure Acute Asthma exacerbation Bronchiectasis--likely due to HIV Hypercarbia likely due to asthmatic bronchitis --CXR: No acute cardiopulmonary findings. --ABG on admission also showed significant CO2 retention with pH of 7.20. -- BioFire negative --IV Solu-Medrol transition to prednisone--plan to complete 5-day course Continue inhalers per pulmonology Appreciate pulmonology input Saturating well on room air Empirically also on doxycycline No indication for bronchoscopy for now per pulmonology Monitor peak flow Nebs PRN Plan to discharge home today Advised to follow-up with pulmonology on discharge Acute metabolic encephalopathy--POA Likely due to CO2 retention --CT head:Normal head/brain CT. Mental status back to baseline Monitor History of HIV Continue home medications DVT Px: Lovenox SQ Code Status Full code Disposition Home Total Time Total Time Spent Total Time Spent (In Minutes): 44 minutes Discharge Plan Discharge Items Patient Disposition: Home - Self-Care Reason For Visit: ASTHMA EXACERBATION Discharge Diagnosis: Acute hypercapnic respiratory failure Acute Asthma exacerbation Activity: Resume your previous activity Non-emergency contact: Primary Care Provider and Senior Systems Engineer Call non-emergency contact if: you have any medication questions and your s ymptoms worsen Follow-up/Referrals: [facility] Pulmonology [Provider Group] - 09/08/24 8:00 am (Pulmonary Function Testing) Darion Gomez MD, FCCP [Physician] - 09/19/24 8:30 am Serena Chin CRNP [Outside Practitioners] - 07/31/24 2:00 pm (Dr Roseanna Barrett did not have any open appointments within 1 week as advised. Serena EAST will be seeing you on 07/31. You may continue to see her or schedule with Dr Roseanna Barrett moving forward after your hospital discharge appointment. ) Elsa August DO [Outside Practitioners] - Diet: Regular Addtl Attending Provider Instructions: Follow-up with your primary care physician and manager scheduling upon discharge as recommended. You were admitted to the hospital due to asthma exacerbation. You are prescribed following medication Complete prednisone 40 mg once a day for 4 days Take doxycycline 100 mg twice a day for 3 days You are prescribed nebulizer as well as nebulizer solution. Please use it as needed for shortness of breath. Please follow-up with your manager scheduling as scheduled. Pending Studies at Discharge: No Stand-Alone Forms: My [facility], Smoking Cessation Medications and DC Order Prescriptions: New doxycycline hyclate 100 mg Capsule 100 mg PO BID 3 Days Qty: 6 0RF ipratropium-albuterol 0.5 mg-3 mg(2.5 mg base)/3 mL Solution For Nebulization 3 ml NEB QIDR PRN (Reason: shortness of breath) Qty: 90 0RF prednisone 20 mg tablet 40 mg PO DAILY 4 Days Qty: 8 0RF Continued albuterol sulfate [Ventolin HFA] 90 mcg/actuation HFA aerosol inhaler 2 inh inhalation Q4H PRN (Reason: shortness of breath or wheezing) Qty: 8.5 3RF Trelegy Ellipta 100-62.5-25 mcg blister with device 1 inh inhalation DAILY Qty: 60 2RF Discharge Orders: Discharge Order (Routine); Ordered 07/24/24 Ordered By: Adolfo Khalil Admission Data Admit Date/Time: 07/21/24 06:49 Attending Provider: Adolfo Khalil Admit Provider: Candido Duarte Primary Care Provider: PCP,NO Other Providers: Scooter Quiroz; Nic Marques
[2024-07-24 12:16] VITALS: TEMP 98.2; O2SAT 95
[2024-07-24 13:19] VITALS: BP 132/72; PULSE 88
== END 2024-07-24 13:48 | disposition home or self-care (01) | DRG 202 ==
LOC: EDBD → MERGE 04:35 → ED 04:35 → SUATTDRO 06:49 → EDINP 06:49 → 4W 17:21
DX: B20 Human immunodeficiency virus [HIV] disease; Z88.8 Allergy status to other drugs, medicaments and biological substances; R51.9 Headache, unspecified; Z79.51 Long term (current) use of inhaled steroids; J47.9 Bronchiectasis, uncomplicated; J96.02 Acute respiratory failure with hypercapnia; J45.901 Unspecified asthma with (acute) exacerbation; Z87.891 Personal history of nicotine dependence; G93.41 Metabolic encephalopathy